=== PATIENT | male | born 1995 | race Caucasian/White ===

== ENCOUNTER 2020-03-09 14:20 | Emergency (ER) | payer MEDICARE, MEDICAID, SELFPAY ==
[2020-03-09] VITALS (57 sets, daily range): BP systolic 80–114; BP diastolic 42–81; PULSE 57–102; RESP 11–27; TEMP 36.6–36.7; O2SAT 95–100
--- NOTE | ~2020-03-09 | CT_ITS ---
EXAMINATION: CT BRAIN W/O DATE: 03/09/2020 15:09 INDICATION: Headache after head injury TECHNIQUE: Computed tomography (CT) of the head was performed without intravenous contrast. The dose- length product was 605.33 mGy-cm. The mA was adjusted according to patient size. Iterative reconstruc tion technique was employed. COMPARISON: CT dated 10/25/2019 FINDINGS: Normal brain parenchymal volume for age. Normal savage-white differentiation. No acute intrac ranial hemorrhage, infarction, mass or mass effect. No ventriculomegaly or midline shift. Midline sagittal images demonstrate a normal corpus callosum, c raniovertebral junction and sella turcica. Basilar cisterns are patent. Paranasal sinuses and mastoids are pneumatized. No depressed skull fractures. IMPRESSION: 1. No acute intracranial abnormality. Reviewed, dictated and finalized at location A.
--- NOTE | 2020-03-09 14:33 | PC.NURSE ---
PD removed bilat cuffs, pt calm and laying in stretcher.
--- NOTE | 2020-03-09 14:57 | PC.NURSE ---
Pt placed on bed alarm. Pt taken to CT scan via stretcher.
[2020-03-09 15:06] LABS: Basophils Absolute Auto 0.1 K/mm3 (0.0-0.1); Basophils Percent Auto 0.7 % (0.2-1.2); Eosinophils Percent Auto 0.5 % (0-4.4); Hematocrit 46.5 % (42.0-52.0); Hemoglobin 15.4 g/dL (14.0-18.0); Immature Granulocyte Absolute 0.03 K/mm3 (0.00-0.031); Immature Granulocyte Percent A 0.4 % (0-0.5); Lymphocytes Percent Auto 24.4 % (18.3-44.2); Mean Corpuscular HGB Conc 33.1 g/dl (32-36); Mean Corpuscular Hemoglobin 31.2 pg (26-34); Mean Corpuscular Volume 94.1 fl (80-100); Mean Platelet Volume 10.1 fl (7.4-10.4); Monocytes Absolute Auto 0.5 K/mm3 (0.1-0.6); Monocytes Percent Auto 5.9 % (2.6-8.5); Neutrophils Absolute Auto 5.6 K/mm3 (1.3-6.7); Neutrophils Percent Auto 68.1 % (45.5-73.1); Platelet Count Result 261 k/mm3 (150-375); Red Blood Count 4.94 M/mm3 (4.6-6.20); Red Cell Distribution Width 15.1 % (11.5-14.5); White Blood Count 8.2 K/mm3 (4.5-10.0)
[2020-03-09 15:09] LABS: Add Urine Microscopic? NO; Appearance Urine Clear (Clear); Bilirubin Urine Negative (Negative); Blood Urine Negative (Negative); Color Urine Straw (Yellow); Glucose Urine UA Negative (Negative); Ketones Urine Negative (Negative); Leukocyte Esterase Ur Negative LEU/UL (Negative); Nitrate Urine Negative (Negative); Protein Urine Negative (Negative); Specific Grav Ur 1.006 (1.001-1.035); Urobilinogen Urine Negative mg/dL (<2.0)
--- NOTE | 2020-03-09 15:10 | PC.NURSE ---
Per pt mother Araceli ([phone]) pt cannot return home. Per mother, pt has schizophrenia and alcoholism - needs to go to rehab facility.
[2020-03-09] MEDS: LACTATED RINGERS 1,000 ML 999 ML IV CONT ×2 (15:18→17:27)
[2020-03-09 15:20] LABS: Alanine Aminotransferase 17 U/L (4-50); Albumin Level 4.9 g/dL (3.5-5.1); Alkaline Phosphatase 109 U/L (38-126); Aspartate Amino Transferase 29 U/L (17-59); Bilirubin,Total 0.5 mg/dL (0.2-1.3); Blood Urea Nitrogen 12 mg/dL (9-20); Calcium 8.6 mg/dL (8.4-10.2); Carbon Dioxide 21 mmol/L (22-30); Chloride 108 mmol/L (98-107); Estimated CRCL calculation 101 ml/min; Estimated Glomerular Filt Rate > 60; Glucose 75 mg/dL (75-110); Potassium 3.8 mmol/L (3.4-5.0); Sodium 145 mmol/L (137-145)
[2020-03-09] MEDS: LORAZEPAM INJ 2 MG/ML VIAL 1 MG IV PUSH (15:21)
[2020-03-09 15:22] LABS: Amphetamine Screen Urine Negative (Negative); Barbiturate Screen Urine Negative (Negative); Benzodiazepines Screen Urine Negative (Negative); Cannabinoid Screen Urine Positive (Negative); Cocaine Screen Urine Negative (Negative); Methadone Screen Urine Negative (Negative); Opiate Screen Urine Negative (Negative); Phencyclidine Screen Urine Negative (Negative)
--- NOTE | 2020-03-09 15:46 | ED.ALCOHOL ---
HPI - Alcohol General Chief Complaint: Alcohol <GEOVANY Hall Last Filed: 03/09/20 15:49> Stated Complaint: ETOH <GEOVANY Hall Last Filed: 03/09/20 15:49> Time Seen by Provider: 03/09/20 19:31 <GEOVANY Hall Last Filed: 03/09/20 15:49> Source: patient <GEOVANY Hall Last Filed: 03/09/20 15:49> Mode of arrival: ambulatory <GEOVANY Hall Last Filed: 03/09/20 15:49> Limitations: no limitations <GEOVANY Hall Last Filed: 03/09/20 15:49> History of Present Illness HPI narrative: Patient is a 24-year-old male who presents per EMS was found in the [facility] yard intoxicated brought in in police custody was released on arrival patient on arrival is in the room intoxicated non-cooperative has a small abrasion over the nasal bridge lives at home with mother who kicked him out due to his chronic alcohol abuse patient also currently has schizophrenia potentially as well. Patient has history of medication noncompliance and alcohol abuse patient not cooperative on arrival is noted and in no distress <GEOVANY Hall Last Filed: 03/09/20 15:49> Related Data Home Medications: Home Medications Medication Instructions Recorded Confirmed Vivitrol 03/09/20 duloxetine 300 mg PO DAILY 03/09/20 <GEOVANY Hall Last Filed: 03/09/20 15:49> Allergies/Adverse Reactions: Allergies Allergy/AdvReac Type Severity Reaction Status Date / Time No Known Allergies Allergy Verified 03/09/20 15:04 <GEOVANY Hall Last Filed: 03/09/20 15:49> Review of Systems Review of Systems: ROS unobtainable: Yes unobtainable due to medical condition <GEOVANY Hall Last Filed: 03/09/20 15:49> PMFSH Past Medical History Medical History: Medical History (Updated 03/10/20 @ 01:34 by Linda Tang MD) Alcohol abuse Schizophrenia <GEOVANY Hall Last Filed: 03/09/20 15:49> Social History Social History: Social History (Updated 03/09/20 @ 15:48 by Marco Berg PA-C) Smoking status: Unknown if ever smoked Gender identity (if verbalized by the patient): Male <Marco Berg PA-C - Last Filed: 03/09/20 15:49> Exam Narrative: Exam Narrative: GENERAL: Well-appearing, well-nourished, and in no acute distress. HEAD: Normocephalic, small abrasion over the nose nasal bridge EYES: PERRLA and EOMI. ENT: Nares clear, no rhinorrhea or epistaxis. Mucous membranes moist. NECK: Supple. No adenopathy or masses. CHEST: Clear to auscultation. No respiratory distress. No wheezes rales or rhonchi HEART: Regular rate and rhythm. No murmur heard. Normal peripheral pulses. ABDOMEN: Soft, nontender, nondistended EXTREMITIES: Normal range of motion. No edema. SKIN: Warm, dry, no rash. NEURO: No focal deficits. Cranial nerves II through XII grossly intact PSYCH: Patient appears intoxicated unwilling to cooperate <Marco Berg PA-C - Last Filed: 03/09/20 15:49> Course GRAIN MERCHANDISING MANAGER/PA Physician Supervision For this patient encounter, I reviewed the GRAIN MERCHANDISING MANAGER or PA documentation, treatment plan, and medical decision making; and I had [id number] time with this patient. Assumed care of patient from physician assistant at surgery at 2000 shift end, awaiting reevaluation once patient is more sober. Patient has progressively become more behaviorally appropriate as he is sobering up. Patient with significant urine output likely due to extensive hydration as well as diuretic effects of alcohol. Continued hydration has been given. <Linda Tang MD - Last Filed: 03/10/20 06:38> Reevaluation(s) Reevaluation #1: Patient has been calm and cooperative. Patient now much more appropriate and sobering up. Patient ambulatory in the emergency department with steady gait. Patient appropriate for discharge. Patient will be calling a ride home. <Linda Tang MD - Last Filed:
[2020-03-09 15:51] LABS: Thyroid Stimulating Hormone 0.789 uIU/mL (0.465-4.680)
[2020-03-09 16:04] LABS: Ethanol 404 mg/dL (<10)
[2020-03-09] MEDS: SODIUM CHLORIDE 0.9% IV 1,000 ML 999 ML IV CONT ×2 (16:15→17:27)
--- NOTE | 2020-03-09 17:07 | PC.NURSE ---
Pt alert to verbal stimuli, pt A&Ox3 at this time.
[2020-03-09] MEDS: FAMOTIDINE 20 MG/2 ML VIAL IV PUSH (18:18)
[2020-03-09] MEDS: ONDANSETRON INJ 4 MG/2 ML VIAL IV PUSH ×2 (18:18→21:32)
--- NOTE | 2020-03-09 18:22 | PC.NURSE ---
Pt given ordered Zofran per EDP following episode of emesis found on floor.
--- NOTE | 2020-03-09 20:57 | PC.NURSE ---
Patient's mother, Araceli calls to get update on patient status. She states patient has been in and out of detox and was placed on medications. Patient's mother also states patient was recently taken off the medication for 4 days and arrived at her house intoxicated today and had him taken to the hospital. Patient's mother states the patient has been talking to the [place]ell[place], talking to people that aren't there and being out of character for his normal. Patient's mother states patient has been recently diagnosed with schizophrenia and ever since he was diagnosed he has been drinking more and he has been acting more and more not himself.
--- NOTE | 2020-03-09 21:38 | PC.NURSE ---
Patient awoke, speaking clearly, stated he was slightly nauseous and requested some water. Patient aware of his surroundings, and resting comfortably on the stretcher. This nurse informed EDP and 4mg Zofran was ordered IVP and patient was given water for PO challenge. Patient tolerated well. Patient offers no complaints at this time. Patient's BP soft at this time, EDP aware.
--- NOTE | 2020-03-10 00:25 | PC.NURSE ---
This nurse calls patient's mother stating the EDP is planning on letting the patient go home. No answer, this nurse left a message on her voicemail to call back.
[2020-03-10 02:23] VITALS: BP 83/50; PULSE 63; RESP 18; TEMP 36.6; O2SAT 98
[2020-03-10] MEDS: LACTATED RINGERS 1,000 ML 999 ML IV CONT (02:36)
--- NOTE | 2020-03-10 03:00 | PC.NURSE ---
This nurse attempted to contact patient's mother again, no answer. A message was left. fig caprifier notified.
[2020-03-10 04:37] VITALS: BP 92/48; PULSE 88; RESP 18; O2SAT 98
--- NOTE | 2020-03-10 05:48 | PC.NURSE ---
Attempted to call pts mother at this time. No answer.
[2020-03-10 06:32] VITALS: BP 102/55; PULSE 79; RESP 18; O2SAT 100
[2020-03-10 06:39] VITALS: BP 129/77; PULSE 79; RESP 18; O2SAT 100
== END 2020-03-10 06:40 | disposition home or self-care (01) ==
PROVIDERS: Emergency Medicine Emergency Medical Services; Emergency Provider Emergency Medicine
DX: F10.129 Alcohol abuse with intoxication, unspecified (principal); Y90.8 Blood alcohol level of 240 mg/100 ml or more; F20.9 Schizophrenia, unspecified; Z79.899 Other long term (current) drug therapy
CPT/HCPCS: 36415; 51701; 70450; 80053; 80307; 81003; 84443; 85025; 96361; 96374; 96375; 96376; 99284; J2060; J2405; J7030; J7120

== ENCOUNTER 2020-04-29 12:48 | Emergency (ER) | payer OTHER, MEDICARE, SELFPAY ==
[2020-04-29] VITALS (9 sets, daily range): BP systolic 122–155; BP diastolic 70–95; PULSE 66–89; RESP 16–21; TEMP 36.7–36.8; O2SAT 98–100
--- NOTE | 2020-04-29 12:53 | ECG_ITS ---
Measurements Intervals [place] Rate: 69 P: 75 RI: 134 QRS: 88 QRSD: 86 T: 73 QT: 416 QTc: 447 Interpretive Statements SINUS RHYTHM WITH SINUS ARRHYTHMIA MINIMAL Q WAVES- ANTEROLAT/INF LEADS ST ELEVATION IN ANT/INF LEADS- PROBABLY EARLY REPOLARIZATION BORDERLINE ECG Electronically Signed On 04-29-2020 17:09:14 CDT by Raul Gamboa D.O.
[2020-04-29 13:04] LABS: Basophils Absolute Auto 0.1 K/mm3 (0.0-0.1); Basophils Percent Auto 0.7 % (0.2-1.2); Eosinophils Percent Auto 0.1 % (0-4.4); Hematocrit 48.4 % (42.0-52.0); Hemoglobin 16.4 g/dL (14.0-18.0); Immature Granulocyte Absolute 0.02 K/mm3 (0.00-0.031); Immature Granulocyte Percent A 0.2 % (0-0.5); Lymphocytes Absolute Auto 1.43 K/mm3 (0.9-3.2); Lymphocytes Percent Auto 16.6 % (18.3-44.2); Mean Corpuscular HGB Conc 33.9 g/dl (32-36); Mean Corpuscular Hemoglobin 32.2 pg (26-34); Mean Corpuscular Volume 95.1 fl (80-100); Mean Platelet Volume 9.6 fl (7.4-10.4); Monocytes Absolute Auto 0.9 K/mm3 (0.1-0.6); Monocytes Percent Auto 10.4 % (2.6-8.5); Neutrophils Absolute Auto 6.2 K/mm3 (1.3-6.7); Platelet Count Result 200 k/mm3 (150-375); Red Blood Count 5.09 M/mm3 (4.6-6.20); Red Cell Distribution Width 15.2 % (11.5-14.5); White Blood Count 8.6 K/mm3 (4.5-10.0)
--- NOTE | 2020-04-29 13:11 | ED.GENADULT ---
HPI - General Adult General Chief complaint: Alcohol <GEOVANY Hall Last Filed: 04/29/20 17:06> Stated complaint: withdrawal <GEOVANY Hall Last Filed: 04/29/20 17:06> Time Seen by Provider: 04/29/20 12:52 <GEOVANY Hall Last Filed: 04/29/20 17:06> Source: patient <GEOVANY Hall Last Filed: 04/29/20 17:06> Mode of arrival: ambulatory <GEOVANY Hall Last Filed: 04/29/20 17:06> Limitations: no limitations <GEOVANY Hall Last Filed: 04/29/20 17:06> History of Present Illness HPI narrative: Patient is a 25-year-old male who presents to emergency department for evaluation of anxiety trembling that began today last drank alcohol last night with history of chronic alcohol abuse was followed by specialists and was getting Vivitrol injections but is no longer due to having continued drinking patient's mother who is also present notes that he has longstanding history of psych disorder and last night made comments of wanting to kill himself patient is currently not taking any medications notes only abusing alcohol denies any illicit drug use patient notes he has had some nausea and vomiting and anxiety patient denies injury trauma or recent illness <GEOVANY Hall Last Filed: 04/29/20 17:06> Related Data Home medications: Home Medications Medication Instructions Recorded Confirmed Vivitrol 380 mg IM MONTHLY 10/25/19 10/26/19 duloxetine [Cymbalta] 30 mg PO DAILY 10/25/19 10/26/19 naltrexone 50 mg PO DAILY 10/27/19 10/27/19 <GEOVANY Hall Last Filed: 04/29/20 17:06> Allergies/adverse reactions: Allergies Allergy/AdvReac Type Severity Reaction Status Date / Time No Known Allergies Allergy Verified 04/29/20 12:55 <GEOVANY Hall Last Filed: 04/29/20 17:06> Review of Systems Review of Systems: All systems reviewed & are unremarkable except as noted in HPI and below <GEOVANY Hall Last Filed: 04/29/20 17:06> PMFSH Past Medical History Medical History: Medical History ADHD Alcohol abuse Anxiety Asperger's disorder Blindness of left eye Depression <Marco Berg PA-C - Last Filed: 04/29/20 17:06> Social History Social History: Social History Smoking packs per day: 1 Smoking cigarettes per day: 20.0 Years smoked: 3 Smoking pack-years: 3.00 Smoking status: Current every day smoker Tobacco type: cigarettes Alcohol intake: current Drinks per week: 1 Substance use: current Substance use type: marijuana Gender identity (if verbalized by the patient): Male Spiritual care concerns: No Agree to blood products: Yes <Marco Berg PA-C - Last Filed: 04/29/20 17:06> Exam Narrative: Exam Narrative: GENERAL: Well-appearing, well-nourished, and in no acute distress. HEAD: Normocephalic, atraumatic. EYES: PERRLA and EOMI. ENT: Nares clear, no rhinorrhea or epistaxis. Mucous membranes moist. Oropharynx without tonsillar hypertrophy exudate or other lesions.-CBC with his head looks like he does not have a bleed NECK: Supple. No adenopathy or masses CHEST: Clear to auscultation. No respiratory distress. No wheezes rales or rhonchi HEART: Regular rate and rhythm. No murmur heard. Normal peripheral pulses. ABDOMEN: Soft, nontender, nondistended EXTREMITIES: Normal range of motion. No edema. SKIN: Warm, dry, no rash. NEURO: No focal deficits. Alert and oriented x3. Cranial nerves II through XII grossly intact. Normal speech. PSYCH: Acutely anxious flat His heart rightaffect <Marco Berg PA-C - Last Filed: 04/29/20 17:06> Course Course Emergency Course: Patient in the room in no distress resting comfortably afebrile nontoxic-appearing <Marco Berg PA-C - Last Filed: 04/29/20 17:06> Vital Signs
[2020-04-29 13:16] LABS: Alanine Aminotransferase 21 U/L (4-50); Albumin Level 5.2 g/dL (3.5-5.1); Alkaline Phosphatase 140 U/L (38-126); Aspartate Amino Transferase 43 U/L (17-59); Blood Urea Nitrogen 13 mg/dL (9-20); Calcium 9.5 mg/dL (8.4-10.2); Carbon Dioxide 28 mmol/L (22-30); Chloride 95 mmol/L (98-107); Estimated CRCL calculation 126 ml/min; Estimated Glomerular Filt Rate > 60; Glucose 99 mg/dL (75-110); Magnesium 1.5 mg/dL (1.6-2.3); Phosphorus 3.2 mg/dL (2.5-4.5); Potassium 3.8 mmol/L (3.4-5.0); Sodium 134 mmol/L (137-145)
[2020-04-29 13:19] LABS: Prothrombin Time 12.9 Seconds (11.1-14.7)
[2020-04-29 13:22] LABS: Ethanol < 10 mg/dL (<10)
[2020-04-29] MEDS: MAGNESIUM SULF 2 GM/WATER 50ML 2 GM/50 ML BAG IVPB (13:46)
[2020-04-29 14:14] LABS: Add Urine Microscopic? YES; Appearance Urine Clear (Clear); Bilirubin Urine Negative (Negative); Blood Urine Negative (Negative); Color Urine Yellow (Yellow); Glucose Urine UA Negative (Negative); Ketones Urine 1+ mg/dL (Negative); Leukocyte Esterase Ur Trace LEU/UL (Negative); Nitrate Urine Negative (Negative); Protein Urine Negative (Negative); RBC Urine 0-2 /hpf (0-2); Specific Grav Ur 1.012 (1.001-1.035); Urobilinogen Urine Negative mg/dL (<2.0)
[2020-04-29 14:30] LABS: Amphetamine Screen Urine Negative (Negative); Barbiturate Screen Urine Negative (Negative); Benzodiazepines Screen Urine Negative (Negative); Cannabinoid Screen Urine Negative (Negative); Cocaine Screen Urine Negative (Negative); Methadone Screen Urine Negative (Negative); Opiate Screen Urine Negative (Negative); Phencyclidine Screen Urine Negative (Negative)
[2020-04-29 17:29] LABS: Amphetamine Screen Urine Negative (Negative); Barbiturate Screen Urine Negative (Negative); Benzodiazepines Screen Urine Negative (Negative); Cannabinoid Screen Urine Negative (Negative); Cocaine Screen Urine Negative (Negative); Methadone Screen Urine Negative (Negative); Opiate Screen Urine Negative (Negative); Phencyclidine Screen Urine Negative (Negative)
== END 2020-04-29 19:51 | disposition home or self-care (01) ==
PROVIDERS: Emergency Medicine Emergency Medical Services; Emergency Provider Emergency Medicine
DX: F10.10 Alcohol abuse, uncomplicated (principal); F41.9 Anxiety disorder, unspecified; F90.9 Attention-deficit hyperactivity disorder, unspecified type; F84.5 Asperger's syndrome; F32.9 Major depressive disorder, single episode, unspecified; F17.210 Nicotine dependence, cigarettes, uncomplicated
CPT/HCPCS: 36415; 80053; 80307; 81001; 83735; 84100; 84443; 85025; 85610; 85730; 93005; 96365; 96366; 96368; 96375; 99284; J2060; J3411; J3475; J7121

== ENCOUNTER 2020-08-12 12:57 | Observation (INO) | payer MEDICARE, MEDICAID, SELFPAY ==
[2020-08-12] VITALS (8 sets, daily range): BP systolic 116–140; BP diastolic 83–94; PULSE 57–92; RESP 16–22; TEMP 36.1–36.7; O2SAT 98–100; BMI 20.9
--- NOTE | ~2020-08-12 | XR_ITS ---
XR chest 1V portable DATE: 08/12/2020 15:19 INDICATION: Shaking, possible seizure TECHNIQUE: Portable AP chest on 08/12/2020 at 1520 hours COMPARISON: 10/25/2019 PA and lateral chest FINDINGS: No pulmonary infiltrate or consolidation, pleural effusion or pulmonary vascular congestion or pneumothorax. No hilar or mediastinal enlargement. IMPRESSION: No active pulmonary disease Reviewed, dictated and finalized at location A. IMPRESSION: No active pulmonary disease
--- NOTE | 2020-08-12 13:24 | ECG_ITS ---
Measurements Intervals [place] Rate: 69 P: 83 [place]: 138 QRS: 94 QRSD: 96 T: 79 QT: 378 QTc: 406 Interpretive Statements SINUS RHYTHM RIGHT AXIS DEVIATION POSSIBLE RIGHT ATRIAL ENLARGEMENT POSSIBLE LEFT ATRIAL ENLARGEMENT ST ELEVATION IN ANTEROLAT/INF LEADS- PROBABLY EARLY REPOLARIZATION BASELINE ARTIFACT- I, II, III, AVR, AVL, AVF, V1-V3 BORDERLINE ECG Electronically Signed On 08-12-2020 16:01:00 CDT by Raul Gamboa D.O.
--- NOTE | 2020-08-12 13:34 | PC.NURSE ---
PT STATES HX SEIZURES WITH ALCOHOL WITHDRAWAL, SEIZURE PADS IN PLACE
--- NOTE | 2020-08-12 13:57 | ED.GENADULT ---
HPI - General Adult General Chief complaint: Unspecified Stated complaint: Shaking All Over Body Time Seen by Provider: 08/12/20 13:16 Source: patient History of Present Illness HPI narrative: Patient is a 25 y/o male complaining of abdominal spasm since yesterday. He states that his spasm moves from side to side. There is no known alleviating or exacerbating factor. He states that the spasm was 10/10 yesterday, but it's 5/10 today. He admits drinks heavily, usually 15 small [place] Light a day. His last drink was 2 days ago. He also feels shaky and sweating. He reports having a seizure last night. He has some nausea and diarrhea, but no vomiting. He also reports some chest pain and shortness of breath. Related Data Home Medications Medication Instructions Recorded Confirmed No Home Medications 08/12/20 08/12/20 Allergies Allergy/AdvReac Type Severity Reaction Status Date / Time No Known Allergies Allergy Verified 08/12/20 13:27 Review of Systems Constitutional: Constitutional: Denies chills, Denies fever(s), Denies headache(s) and Denies weakness Eyes: Eyes: Denies blurry vision ENT: Denies headache(s) and Denies neck pain Cardiovascular: Cardiovascular: Reports chest pain and Reports dyspnea Respiratory: Respiratory: Denies cough and Reports dyspnea Gastrointestinal: Gastrointestinal: Reports abdominal pain, Reports diarrhea, Reports nausea and Denies vomiting Genitourinary: Genitourinary: Denies hematuria and Denies dysuria Musculoskeletal: Musculoskeletal: Denies back pain and Denies neck pain Neurologic: Denies headache(s), Reports seizure-like activity and Denies weakness [facility] Past Medical History Medical History (Updated 08/12/20 @ 17:31 by Leyla Jean-Baptiste MD) ADHD Alcohol abuse Anxiety Asperger's disorder Blindness of left eye Depression Family History Family History (Updated 08/12/20 @ 17:07 by Mini Faria RN) Father Alcoholism Social History Social History Smoking packs per day: 1 Smoking cigarettes per day: 20.0 Years smoked: 3 Smoking pack-years: 3.00 Smoking status: Current every day smoker Tobacco type: cigarettes Additional smoking assessment comments: trying to quit Alcohol intake: current Drinks per week: 105 Substance use: former Substance use type: marijuana Other substance usage details: CBD/THC Last use: 08/06/20 Gender identity (if verbalized by the patient): Male Spiritual care concerns: No Agree to blood products: Yes Exam Const: General: no acute distress and well developed Orientation/consciousness: oriented to person, oriented to place, oriented to time and patient oriented x3 HENMT: Head: normocephalic Ears: external ears normal General nose exam: Normal external nose present Eyes: General: appearance normal, both eyes and all related structures Conjunctivae: conjunctivae normal Neck: Neck: normal visual inspection and full ROM Chest: Chest palpation & inspection: normal inspection of the chest and no tenderness Resp: Effort & Inspection: normal respiratory effort Auscultation: clear to auscultation bilaterally Cardio: Rate: regular rate Rhythm: regular rhythm GI: GI Palp: No abdominal tenderness and Yes Soft to palpation Skin: General skin exam: normal color and turgor normal Neuro: General: oriented to person, oriented to place, oriented to time and patient oriented x3 Cognition (Neuro): normal cognition Motor exam (neuro): Tremors during motor activity present Extrem: General: normal to inspection, full ROM and no pedal edema Psych: Appearance: grossly normal Mental Status: mental status grossly normal Affect: Anxious affect present Course Consultations Consultation #1: Discussed with Lois, who agrees to admit. Date: 08/12/20 Time: 15:07 Vital Signs Vital signs: Vital Signs Temperature 36.1 C L 08/12/20 13:06 Pulse Rate 92 08/12
[2020-08-12 14:11] LABS: Basophils Percent Auto 0.3 % (0.2-1.2); Eosinophils Absolute Auto 0.1 K/mm3 (0-0.3); Eosinophils Percent Auto 0.7 % (0-4.4); Hematocrit 44.3 % (42.0-52.0); Hemoglobin 15.2 g/dL (14.0-18.0); Immature Granulocyte Absolute 0.03 K/mm3 (0.00-0.031); Immature Granulocyte Percent A 0.2 % (0-0.5); Immature Platelet Fraction Pct 4.8 % (0.9-11.2); Lymphocytes Absolute Auto 1.11 K/mm3 (0.9-3.2); Lymphocytes Percent Auto 8.6 % (18.3-44.2); Mean Corpuscular HGB Conc 34.3 g/dl (32-36); Mean Corpuscular Hemoglobin 32.9 pg (26-34); Mean Corpuscular Volume 95.9 fl (80-100); Mean Platelet Volume 10.4 fl (7.4-10.4); Monocytes Percent Auto 7.6 % (2.6-8.5); Neutrophils Absolute Auto 10.7 K/mm3 (1.3-6.7); Neutrophils Percent Auto 82.6 % (45.5-73.1); Platelet Count Result 150 k/mm3 (150-375); Red Blood Count 4.62 M/mm3 (4.6-6.20); Red Cell Distribution Width 13.9 % (11.5-14.5); White Blood Count 12.9 K/mm3 (4.5-10.0)
[2020-08-12 14:15] LABS: Add Urine Microscopic? NO; Appearance Urine Clear (Clear); Bilirubin Urine Negative (Negative); Blood Urine Negative (Negative); Color Urine Colorless (Yellow); Glucose Urine UA Negative (Negative); Ketones Urine Negative (Negative); Leukocyte Esterase Ur Negative LEU/UL (Negative); Mucus Urine Rare /lpf; Nitrate Urine Negative (Negative); Protein Urine Negative (Negative); Squamous Epithelial Cell Urine Rare /hpf (Few); Urobilinogen Urine Negative mg/dL (<2.0); WBC Urine 0-3 /hpf
[2020-08-12] MEDS: chlordiazePOXIDE (*CRX) 25 MG CAPSULE PO (14:15)
[2020-08-12] MEDS: LORazepam INJ (*CRX) 2 MG/ML VIAL 1 MG IV PUSH (14:15)
[2020-08-12] MEDS: SODIUM CHLORIDE 0.9% IV 1,000 ML 999 ML IV CONT (14:16)
[2020-08-12 14:18] LABS: Specific Grav Ur 1.002 (1.001-1.035)
[2020-08-12 14:25] LABS: Ethanol < 10 mg/dL (<10)
[2020-08-12 14:30] LABS: Alanine Aminotransferase 211 U/L (4-50); Albumin Level 4.9 g/dL (3.5-5.1); Alkaline Phosphatase 118 U/L (38-126); Anion Gap 11 mmol/L (8-16); Aspartate Amino Transferase 320 U/L (17-59); Bilirubin,Total 0.7 mg/dL (0.2-1.3); Blood Urea Nitrogen 10 mg/dL (9-20); Calcium 9.5 mg/dL (8.4-10.2); Carbon Dioxide 27 mmol/L (22-30); Chloride 99 mmol/L (98-107); Estimated CRCL calculation 109 ml/min; Estimated Glomerular Filt Rate > 60; Glucose 95 mg/dL (75-110); Lipase 72 U/L (23-300); Potassium 4.2 mmol/L (3.4-5.0); Sodium 137 mmol/L (137-145)
[2020-08-12 14:46] LABS: Amphetamine Screen Urine Negative (Negative); Barbiturate Screen Urine Negative (Negative); Benzodiazepines Screen Urine Negative (Negative); Cannabinoid Screen Urine Negative (Negative); Cocaine Screen Urine Negative (Negative); Methadone Screen Urine Negative (Negative); Opiate Screen Urine Negative (Negative); Phencyclidine Screen Urine Negative (Negative)
[2020-08-12 15:58] LABS: Troponin I < 0.012 ng/mL (0.000-0.034)
--- NOTE | 2020-08-12 16:25 | ADMGEN ---
This patient, Talat Villagomez II, was admitted to Medical Room 249-01. Patient/family oriented to hospital policies and general routines including ID bracelet, bed and alarms, visiting hours, pain management, procedures, bathroom and other care routines, personal items, smoking policy, room service/diet, and visiting hours. Valuables list has been completed. Information on how to activate the Rapid Response Team has been discussed. Patient/Family are encouraged to report perceived risks to care and to ask questions if they do not understand what they are told or what they should do.
[2020-08-12] MEDS: LORazepam INJ (*CRX) 2 MG/ML VIAL 0.5 MG IV PUSH (19:50)
--- NOTE | 2020-08-12 19:53 | PM.IMHP ---
H&P: HPI History of Present Illness Date/Time: 08/12/20 19:53 Chief complaint: alcohol withdrawl, seizure Narrative: Talat Villagomez II is a 25 year old male Who has had a history of having alcohol abuse. The patient was here October of last year for alcohol withdrawal and he has been in the emergency room in the past for possible suicidal ideation. He was evaluated by crisis and sent home from the ER at 1 point. The patient was also getting Vivitrol injections to help him stop drinking but the patient stated he quit doing that because of the side effects. The patient has longstanding depression and anxiety. The patient stated he has no desire to go to any rehab in that he plans on doing an on his own. He told me he used to drink whiskey but now just drinks beer he thought it would be better and would drink as much if he does drink beer instead with the however he tends to drink anywhere from 12-16 regular beers a day. The patient has not drink in about 2 days and felt really ill. He felt like he could go through these withdrawals on his home but he started to have hand tremors of the stomach tremors and thought that maybe had a seizure last night. So he thought that it was time to come the emergency room. He said he probably should the came in last night. He has no nausea vomiting or diarrhea. He has no visual or auditory hallucinations. Though he is diaphoretic and anxious. Patient was given a dose of Librium in the emergency room. He was also given Ativan a and IV fluids in the emergency room. His white count is noted to be 12.9. All other labs were unremarkable. Date of service 08/12/2020 Review of Systems Review of Systems: All systems reviewed & are unremarkable except as noted in HPI and below Constitutional: Constitutional: Reports as per HPI and Reports no additional constitutional complaints Eyes: Eyes: Reports as per HPI and Reports no additional eye complaints ENT: Reports system reviewed and no additional complaints, except as documented and Reports Normal hearing present Cardiovascular: Cardiovascular: Reports no additional cardiovascular complaints Respiratory: Respiratory: Reports no additional respiratory complaints and Reports no additional respiratory complaints Gastrointestinal: Gastrointestinal: Reports as per HPI and Reports no additional gastrointestinal complaints Musculoskeletal: Musculoskeletal: Reports no additional musculoskeletal complaints Integumentary/Breasts: Skin/Breast: Reports system reviewed and no additional complaints, except as docu and Reports as per HPI Neurologic: Reports system reviewed and no additional complaints, except as documented, Reports as per HPI and Reports Normal hearing present Psychiatric: Psychiatric: Reports no additional psychiatric complaints and Reports as per HPI Endocrine: Endocrine: Reports no additional endocrine complaints Hematologic/Lymphatic: Hematologic/Lymphatic: Reports no additional hematologic/lymphatic complaints Allergic/Immunologic: Allergic/Immunologic: Reports no additional allergic/immunologic complaints PMFSH Past Medical History Medical History (Updated 08/12/20 @ 19:58 by Lois House NP) ADHD Alcohol abuse Anxiety Asperger's disorder 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 Depression Surgical History Surgical History (Updated 08/12/20 @ 19:58 by Lois House NP) H/O cataract extraction left eye . Patient stated he had a cataract from being premature. Family History Family History Father Alcoholism Social History Social History (Updated 08/12/20 @ 20:00 by Lois House NP) Social History: The patient lives with his grandmother. The patient does not have a durable power corporate associate attorney for healthcare. The patient is full code. Patient works for a [employer]. The patient states that he drinks anywhere from 12-16 beers a d
[2020-08-12] MEDS: MELATONIN 3 MG TABLET PO (21:05)
[2020-08-13] MEDS: chlordiazePOXIDE (*CRX) 25 MG CAPSULE PO ×3 (00:01→12:27)
[2020-08-13 00:07] VITALS: PULSE 66
[2020-08-13 02:00] VITALS: BP 112/72; PULSE 52; RESP 16; TEMP 36.7; O2SAT 100
[2020-08-13 04:32] VITALS: PULSE 80
[2020-08-13 05:47] LABS: Basophils Percent Auto 0.6 % (0.2-1.2); Eosinophils Absolute Auto 0.2 K/mm3 (0-0.3); Eosinophils Percent Auto 2.3 % (0-4.4); Immature Granulocyte Absolute 0.03 K/mm3 (0.00-0.031); Immature Granulocyte Percent A 0.4 % (0-0.5); Immature Platelet Fraction Pct 5.1 % (0.9-11.2); Lymphocytes Absolute Auto 1.09 K/mm3 (0.9-3.2); Lymphocytes Percent Auto 15.3 % (18.3-44.2); Mean Corpuscular HGB Conc 34.1 g/dl (32-36); Mean Corpuscular Hemoglobin 33.6 pg (26-34); Mean Corpuscular Volume 98.4 fl (80-100); Mean Platelet Volume 11.3 fl (7.4-10.4); Monocytes Absolute Auto 0.7 K/mm3 (0.1-0.6); Monocytes Percent Auto 10.3 % (2.6-8.5); Neutrophils Absolute Auto 5.1 K/mm3 (1.3-6.7); Neutrophils Percent Auto 71.1 % (45.5-73.1); Platelet Count Result 137 k/mm3 (150-375); Red Blood Count 4.47 M/mm3 (4.6-6.20); Red Cell Distribution Width 14.1 % (11.5-14.5); White Blood Count 7.1 K/mm3 (4.5-10.0)
[2020-08-13 05:55] LABS: Anion Gap 6 mmol/L (8-16); Blood Urea Nitrogen 10 mg/dL (9-20); Calcium 9.2 mg/dL (8.4-10.2); Carbon Dioxide 30 mmol/L (22-30); Chloride 102 mmol/L (98-107); Estimated CRCL calculation 99 ml/min; Estimated Glomerular Filt Rate > 60; Glucose 89 mg/dL (75-110); Lactate Dehydrogenase 1405 U/L (313-618); Lipase 63 U/L (23-300); Magnesium 2.1 mg/dL (1.6-2.3); Potassium 3.8 mmol/L (3.4-5.0); Sodium 138 mmol/L (137-145)
[2020-08-13 06:00] VITALS: BP 117/90; PULSE 68; RESP 16; TEMP 36.6; O2SAT 100
[2020-08-13 08:00] VITALS: PULSE 107
[2020-08-13] MEDS: FOLIC ACID 1 MG TABLET PO (09:23)
[2020-08-13] MEDS: NICOTINE (*PBKC) 21 MG PATCH 1 PATCH TRANSDERM (09:23)
[2020-08-13] MEDS: THIAMINE HCL 100 MG TABLET PO (09:23)
[2020-08-13 12:00] VITALS: PULSE 80
--- NOTE | 2020-08-13 14:20 | PM.DS ---
DS: Admitting Diagnosis Admitting Diagnosis Admitting Diagnosis: alcohol withdrawl, seizure DS: Discharge Diagnosis Discharge Diagnosis (1) Alcohol withdrawal: Qualifiers: Complication of substance-induced condition: with unspecified complication Qualified Code(s): F10.239 - Alcohol dependence with withdrawal, unspecified Code(s): F10.239 - Alcohol dependence with withdrawal, unspecified Status: Acute Assessment and Plan: Date of Admission 08/12/20 Date of Discharge/DOS 08/13/20 Talat Villagomez is a 25yo M with history of depression, anxiety, tobacco and alcohol use disorder who presented to the ED for evaluation of tremor, shaking all over body . He reports drinking around 15 beers per day. His last drink was 2 days prior to arrival. He thinks he may have had a seizure the evening prior to arrival but is unsure. Per the EMR he may also have a diagnosis of schizophrenia. Patient had been on vivitrol injections previously which unfortunately were discontinued due to his continued drinking, per the EMR. Patient was observed overnight with CIWA monitoring and scheduled Librium. His symptoms were improved the following day and he was hemodynamically stable for discharge with resources on counseling for anxiety/depression/schizophrenia and alcohol use disorder. He declines inpatient rehabilitation at this time. He is strongly encouraged to follow up with his PCP and psychiatrist as soon as possible. He lives at home with his grandmother and tells me there is no alcohol in his home at this time. (2) Anxiety: Code(s): F41.9 - Anxiety disorder, unspecified Status: Acute (3) Depression: Qualifiers: Depression Type: other depression Qualified Code(s): F32.89 - Other specified depressive episodes Code(s): F32.9 - Major depressive disorder, single episode, unspecified Status: Chronic (4) Tobacco dependence: Code(s): F17.200 - Nicotine dependence, unspecified, uncomplicated Status: Chronic Assessment and Plan: Detailed discussions encouraging alcohol and tobacco cessation were held with patient. DS: Summary Time Spent with Patient Time attestation: Total time spent providing and/or coordinating discharge services: 40 minutes Exam Narrative: Exam Narrative: General: Male resting supine in bed in no acute distress, anxious. HEENT: Normocephalic, EOMI, oral mucosa moist. Cardiovascular: Rate and rhythm are regular. Respiratory: Lungs clear to auscultation all lyle. Non-labored breathing. Abdomen: Soft, non-tender, non-distended, bowel sounds present. Extremities: Peripheral pulses intact. No edema. Neuro: No focal neurological deficits. Speech is clear. DS: Data Data Completed and Pending Labs on day of discharge: Last Vital Signs Temp 97.9 F 08/13/20 06:00 Pulse 80 08/13/20 12:00 Resp 16 08/13/20 06:00 BP 117/90 08/13/20 06:00 Pulse Ox 100 08/13/20 06:00 ITS Impressions Chest X-Ray 08/12/20 15:22 IMPRESSION: No active pulmonary disease Laboratory Tests 08/13/20 04:56 08/13/20 04:56 Discharge Plan Discharge Attending physician on discharge: Johnson Murray Consulting providers: Aileen Buck ; Lois House ; Raul Gamboa ; Diego Duckworth ; Qiana Noel Discharging Clinician: Qiana Noel Anticipated Discharge Date/Time: 08/13/20 13:49 Patient Disposition: Home, Self-Care Activity: as tolerated Diet: as tolerated Discharge Instructions: Follow up with your primary care provider and your psychiatrist, Dr Augustin, as soon as possible. Call Dr. Ann Marie Augustin's office to make an appointment for this week. Dr Augustin's office phone number is . It is very important for you to stop drinking. The Librium prescription is a benzodiazepine to help treat alcohol withdrawal symptoms. Take the librium as prescribed but
== END 2020-08-13 15:15 | disposition home or self-care (01) ==
LOC: ANHED 15:21 → ANH2MED 15:59
PROVIDERS: Nurse Practitioner; Admitting Provider Family Medicine; Emergency Provider Emergency Medicine; Visit Provider Family Medicine
DX: F10.239 Alcohol dependence with withdrawal, unspecified (principal); R07.9 Chest pain, unspecified; F90.9 Attention-deficit hyperactivity disorder, unspecified type; F84.5 Asperger's syndrome; F41.8 Other specified anxiety disorders; F17.210 Nicotine dependence, cigarettes, uncomplicated; F12.90 Cannabis use, unspecified, uncomplicated
CPT/HCPCS: 36415; 71045; 80048; 80053; 80307; 81003; 83615; 83690; 83735; 84443; 84484; 85025; 85055; 93005; 96361; 96374; 96376; 99285; A9270; G0378; J2060; J7030

== ENCOUNTER 2020-09-09 23:07 | Inpatient (IN) | payer MEDICARE, MEDICAID, SELFPAY ==
--- NOTE | ~2020-09-09 | XR_ITS ---
EXAMINATION: XR chest 1V DATE: 09/10/2020 00:42 INDICATION: Aspiration TECHNIQUE: frontal view of the chest was obtained. COMPARISON: Chest radiograph dated 08/12/2020 FINDINGS: Suboptimal inspiration with decreased lung volumes. No focal airspace opacities, pulmonary edema, ple ural effusion or pneumothorax. The cardiomediastinal silhouette is normal. Visualized bones and soft tissues are unremarkable. IMPRESSION: 1. No acute cardiopulmonary disease. Reviewed, dictated and finalized at location A. ASSEMBLER
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
[2020-09-09 23:08] VITALS: BP 116/85; PULSE 76; RESP 20; TEMP 36; O2SAT 97
[2020-09-09 23:18] VITALS: PULSE 80; RESP 19; O2SAT 97
[2020-09-09 23:30] VITALS: PULSE 81; RESP 20; O2SAT 96
[2020-09-09 23:31] VITALS: BP 101/69; PULSE 81; RESP 21; O2SAT 97
--- NOTE | 2020-09-09 23:36 | ED.FALL ---
HPI - Fall General Chief Complaint: Fall Stated Complaint: fall/ head lac Time Seen by Provider: 09/09/20 23:36 Source: patient and EMS Mode of arrival: EMS Limitations: clinical condition History of Present Illness HPI Narrative: Patient is a 25-year-old male who presents for evaluation of altered mental status in the setting of alcohol intoxication. History is obtained via EMS report. EMS called to patient's residence as he was found outside lying on the driveway. Patient noted to have heavy alcohol on board this evening per family as well as possible benzodiazepines or crack cocaine. Patient somnolent, arousable to painful stimuli. Pt with history of alcoholism, schizophrenia, asberger's syndrome. Per family report, he has had multiple admissions to rehabilitation facilities. Per mother, she found text messages on his phone to a friend stating that he was going to end his life tonight. 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 Depression Surgical History Surgical History H/O cataract extraction left eye . Patient stated he had a cataract from being premature. Family History Family History Father Alcoholism Social History Social History Social History: The patient lives with his grandmother. The patient does not have a durable power staff attorney for healthcare. The patient is full code. Patient works for a [employer]. The patient states that he drinks anywhere from 12-16 beers a day. He does occasionally use marijuana. He is single does not have any children. He smokes 1-2 packs of cigarettes a day. Smoking packs per day: 1 Smoking cigarettes per day: 20.0 Years smoked: 3 Smoking pack-years: 3.00 Smoking status: Current every day smoker Tobacco type: cigarettes Additional smoking assessment comments: trying to quit Alcohol intake: current Drinks per week: 105 Substance use: former Substance use type: marijuana Other substance usage details: CBD/THC Last use: 08/06/20 Gender identity (if verbalized by the patient): Male Spiritual care concerns: No Agree to blood products: Yes Exam Narrative: Exam Narrative: Nursing note and vitals reviewed. CONSTITUTIONAL: The patient appears somnolent, intoxicated HEAD: Normocephalic, 1 cm laceration to right eyebrow, nasal bridge laceration approximately 0.25 cm EYES: EARS: External ears clear bilaterally, no hemotympanum MOUTH: OP clear, no erythema, exudates NECK: midline trachea, supple, FROM. No cervical spinal tenderness. CARDIOVASCULAR: Normal rate, regular rhythm, normal heart sounds and intact distal pulses. No murmurs, rubs, gallops. PULMONARY: Effort normal and breath sounds normal. No respiratory distress. The patient has no wheezes, rales, ronchi. No chest wall tenderness, crepitus or ecchymoses. ABDOMINAL: Soft. Nontender, nondistended. No palpable masses EXTREMITIES: Pt will move all extremities symmetrically. -RUE: No deformity. Normal ROM at shoulder, elbow, wrist, and hand. Sensation intact M/U/R. Pulse 2+. -LUE: No deformity. Normal ROM at shoulder, elbow, wrist, and hand., Sensation intact M/U/R. Pulse 2+ -RLE: No deformity. Normal ROM at hip, knee, ankle. Sensation intact distally. -LLE: No deformity. Normal ROM at hip, knee, ankle. Sensation intact distal
--- NOTE | 2020-09-09 23:42 | PC.NURSE ---
charge spoke with pt mother. per mom pt phone had text evidence of attempting to get ahold of xanax and cocaine. Pt has history of schizephrenia and etoh abuse, and Asperger.
[2020-09-10] VITALS (21 sets, daily range): BP systolic 95–136; BP diastolic 48–93; PULSE 66–90; RESP 15–24; TEMP 36.7–36.9; O2SAT 96–100; BMI 19.6
--- NOTE | 2020-09-10 00:09 | ECG_ITS ---
Measurements Intervals [place] Rate: 82 P: 64 NC: 133 QRS: 81 QRSD: 95 T: 54 QT: 382 QTc: 447 Interpretive Statements SINUS RHYTHM POSSIBLE LEFT ATRIAL ENLARGEMENT ST ELEVATION IN DIFFUSE LEADS- PROBABLY EARLY REPOLARIZATION BASELINE ARTIFACT- V4, V6 BORDERLINE ECG Electronically Signed On 09-10-2020 8:46:20 CASH SURRENDER CALCULATOR by Raul Gamboa D.O.
[2020-09-10 00:10] LABS: Glucose Point of Care 98 (65-105)
[2020-09-10] MEDS: ONDANSETRON INJ 4 MG/2 ML VIAL IV PUSH (00:14)
[2020-09-10] MEDS: TETANUS,DIPHTHERIA,AC PERTUSSIS ADULT (0.5 ML) BOOSTRIX IM (00:14)
[2020-09-10] MEDS: SODIUM CHLORIDE 0.9% IV 1,000 ML 999 ML IV CONT (00:15)
[2020-09-10 00:20] LABS: Alveolar/Arterial O2 Gradient 20.9 mmHg; Carboxyhemoglobin 6.1 % THb (0-2.0); Fractional Inspired Oxygen 24 %; HCO3 ABG 21.4 mEq/l (22.0-26.0); Methemoglobin ABG 0.3 %THb (0-1.5); Oxygen Content ABG 19.7 %vol (16.0-22.0); Oxygen Saturation ABG 96.8 % (95.0-100.0); PCO2 ABG 44.4 mmHg (35.0-45.0); PO2 ABG 97.4 mmHg (80.0-100.0); PO2 FiO2 Ratio Arterial Blood 4.06 %; Reduced Hemoglobin 3.6 %THb (0-5.0); Total Hemoglobin 15.5 g/dL (12.0-18.0); pH ABG 7.301 (7.350-7.450)
[2020-09-10 00:24] LABS: Site Drawn RIGHT BRACHIAL
[2020-09-10 00:59] LABS: Basophils Percent Auto 0.4 % (0.2-1.2); Eosinophils Absolute Auto 0.2 K/mm3 (0-0.3); Eosinophils Percent Auto 1.7 % (0-4.4); Hematocrit 41.8 % (42.0-52.0); Immature Granulocyte Absolute 0.06 K/mm3 (0.00-0.031); Immature Granulocyte Percent A 0.5 % (0-0.5); Lymphocytes Absolute Auto 2.88 K/mm3 (0.9-3.2); Lymphocytes Percent Auto 25.9 % (18.3-44.2); Mean Corpuscular HGB Conc 33.5 g/dl (32-36); Mean Corpuscular Hemoglobin 32.6 pg (26-34); Mean Corpuscular Volume 97.2 fl (80-100); Mean Platelet Volume 10.1 fl (7.4-10.4); Monocytes Absolute Auto 0.9 K/mm3 (0.1-0.6); Monocytes Percent Auto 8.1 % (2.6-8.5); Neutrophils Absolute Auto 7.1 K/mm3 (1.3-6.7); Neutrophils Percent Auto 63.4 % (45.5-73.1); Platelet Count Result 188 k/mm3 (150-375); Red Cell Distribution Width 13.6 % (11.5-14.5); White Blood Count 11.1 K/mm3 (4.5-10.0)
[2020-09-10 01:05] LABS: INR 0.9; Prothrombin Time 12.9 Seconds (11.1-14.7)
[2020-09-10 01:08] LABS: Magnesium 2.1 mg/dL (1.6-2.3); Phosphorus 3.8 mg/dL (2.5-4.5)
[2020-09-10 01:10] LABS: Alanine Aminotransferase 21 U/L (4-50); Alkaline Phosphatase 73 U/L (38-126); Anion Gap 9 mmol/L (8-16); Aspartate Amino Transferase 28 U/L (17-59); Bilirubin,Total 0.3 mg/dL (0.2-1.3); Blood Urea Nitrogen 10 mg/dL (9-20); Calcium 8.4 mg/dL (8.4-10.2); Carbon Dioxide 27 mmol/L (22-30); Chloride 110 mmol/L (98-107); Estimated Glomerular Filt Rate > 60; Glucose 92 mg/dL (75-110); Sodium 146 mmol/L (137-145)
[2020-09-10 01:14] LABS: Ethanol 222 mg/dL (<10)
[2020-09-10 01:56] LABS: Add Urine Microscopic? NO; Appearance Urine Clear (Clear); Bilirubin Urine Negative (Negative); Blood Urine Negative (Negative); Color Urine Colorless (Yellow); Glucose Urine UA Negative (Negative); Ketones Urine Negative (Negative); Leukocyte Esterase Ur Negative LEU/UL (Negative); Nitrate Urine Negative (Negative); Protein Urine Negative (Negative); Specific Grav Ur 1.005 (1.001-1.035); Urobilinogen Urine Negative mg/dL (<2.0)
[2020-09-10 02:06] LABS: Amphetamine Screen Urine Negative (Negative); Barbiturate Screen Urine Negative (Negative); Benzodiazepines Screen Urine Negative (Negative); Cannabinoid Screen Urine Negative (Negative); Cocaine Screen Urine Negative (Negative); Methadone Screen Urine Negative (Negative); Opiate Screen Urine Negative (Negative); Phencyclidine Screen Urine Negative (Negative)
--- NOTE | 2020-09-10 02:44 | PM.IMHP ---
H&P: HPI History of Present Illness Date/Time: 09/10/20 02:44 Chief complaint: Suicide attempt, overdose Narrative: This is a 25 year old male with history of schizophrenia who presented to the hospital secondary to acute intentional overdose. The patient was found outside lying on his driveway and it appears that he has fallen and suffered facial trauma. The pateint's mother called the ER and reported that the patient was texting a friend tonight and told them that he intended to end his life tonight by alcohol intoxication. His family also reported that the patient may have possibly overdosed on benzodiazepines, crack or cocaine. The patient is obtunded but arouses to painful stimuli. He is currently breathing well. No other history is obtainable from the patient due to his intoxicated state. CT head was notable for nasal bone fracture. ER provider has consulted our Flat Ironer. 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 Depression Surgical History Surgical History H/O cataract extraction left eye . Patient stated he had a cataract from being premature. Family History Family History Father Alcoholism Social History Social History Social History: The patient lives with his grandmother. The patient does not have a durable power insurance defense attorney for healthcare. The patient is full code. Patient works for a [employer]. The patient states that he drinks anywhere from 12-16 beers a day. He does occasionally use marijuana. He is single does not have any children. He smokes 1-2 packs of cigarettes a day. Smoking packs per day: 1 Smoking cigarettes per day: 20.0 Years smoked: 3 Smoking pack-years: 3.00 Smoking status: Current every day smoker Tobacco type: cigarettes Additional smoking assessment comments: trying to quit Alcohol intake: current Drinks per week: 105 Substance use: former Substance use type: marijuana Other substance usage details: CBD/THC Last use: 08/06/20 Gender identity (if verbalized by the patient): Male Spiritual care concerns: No Agree to blood products: Yes Meds Home Medications and Allergies Home Medications Medication Instructions Recorded Confirmed Type No Home Medications 08/12/20 08/12/20 History chlordiazepoxide HCl 25 mg PO Q8H PRN #20 cap 08/13/20 Rx folic acid 1 mg PO DAILY 30 Days #30 tablet 08/13/20 Rx nicotine [Nicoderm CQ] 1 patch TRANSDERMAL QAM #14 ea 08/13/20 Rx thiamine HCl (vitamin B1) [Vitamin 100 mg PO QAM 30 Days #30 tablet 08/13/20 Rx B-1] Allergies Allergy/AdvReac Type Severity Reaction Status Date / Time No Known Allergies Allergy Verified 09/10/20 04:23 Vital Signs Vital Signs - 24 hr 09/09/20 23:08 09/09/20 23:18 09/09/20 23:30 Temperature 36.0 C L Pulse Rate 76 80 81 Respiratory Rate 20 19 20 Blood Pressure 116/85 Pulse Oximetry 97 97 96 09/09/20 23:31 09/10/20 00:01 09/10/20 00:05 Temperature Pulse Rate 81 79 82 Respiratory Rate 21 H 18 20 Blood Pressure 101/69 110/70 Pulse Oximetry 97 98 96 09/10/20 00:42 09/10/20 00:43 09/10/20 00:44 Temperature Pulse Rate 74 74 74 Respiratory Rate 17 17 17 Blood Pressure 100/69 96/69 L Pulse Oximetry 100 100 09/10/20 00:45 09/10/20 00:46 09/10/20 01:00 Temperature Pulse Rate 73 73 75 Respiratory Rate 17 17 19 Blood Pressure 99/66 L Pulse Oximetry 100 09/10/20 01:01 09/10/20 01:15 09/10/20 01:16 Temperature Pulse Rate 75 75 75 Respiratory Rate 18 20 19
--- NOTE | 2020-09-10 04:29 | PC.NURSE ---
This patient, Talat Villagomez II, was admitted to Intensive Care Unit-3 at 0350. Patient/family oriented to hospital policies and general routines including ID bracelet, bed and alarms, visiting hours, pain management, procedures, bathroom and other care routines, personal items, smoking policy, room service/diet, and visiting hours. Pt arousable to shaking. Refuses to answer questions. Who gave them permission to pick me up? Pt states he was sleeping tonight and drinking. Denies trying to hurt self but will not answer any other questions. Unable to complete admission process. Denies taking any home medications even when asked about recent prescriptions filled. Will attempt admission questions when pt more awake. Information on how to activate the Rapid Response Team has been discussed. Patient/Family are encouraged to report perceived risks to care and to ask questions if they do not understand what they are told or what they should do.
--- NOTE | 2020-09-10 05:47 | PC.NURSE ---
Pt gave permission to give information to father.
[2020-09-10] MEDS: DEXTROSE 5% 1,000 ML 1,000 ML 100 ML IV CONT ×2 (05:57→16:41)
[2020-09-10 07:17] LABS: Basophils Absolute Auto 0.1 K/mm3 (0.0-0.1); Basophils Percent Auto 0.5 % (0.2-1.2); Eosinophils Absolute Auto 0.2 K/mm3 (0-0.3); Eosinophils Percent Auto 1.9 % (0-4.4); Hematocrit 42.3 % (42.0-52.0); Hemoglobin 14.2 g/dL (14.0-18.0); Immature Granulocyte Absolute 0.08 K/mm3 (0.00-0.031); Immature Granulocyte Percent A 0.6 % (0-0.5); Lymphocytes Absolute Auto 2.69 K/mm3 (0.9-3.2); Lymphocytes Percent Auto 20.8 % (18.3-44.2); Mean Corpuscular HGB Conc 33.6 g/dl (32-36); Mean Corpuscular Hemoglobin 32.2 pg (26-34); Mean Corpuscular Volume 95.9 fl (80-100); Monocytes Absolute Auto 1.3 K/mm3 (0.1-0.6); Monocytes Percent Auto 10.3 % (2.6-8.5); Neutrophils Absolute Auto 8.6 K/mm3 (1.3-6.7); Neutrophils Percent Auto 65.9 % (45.5-73.1); Platelet Count Result 193 k/mm3 (150-375); Red Blood Count 4.41 M/mm3 (4.6-6.20); Red Cell Distribution Width 13.4 % (11.5-14.5)
[2020-09-10 07:26] LABS: Anion Gap 9 mmol/L (8-16); Blood Urea Nitrogen 8 mg/dL (9-20); Calcium 8.3 mg/dL (8.4-10.2); Carbon Dioxide 25 mmol/L (22-30); Chloride 110 mmol/L (98-107); Estimated CRCL calculation 121 ml/min; Estimated Glomerular Filt Rate > 60; Glucose 92 mg/dL (75-110); Sodium 144 mmol/L (137-145)
[2020-09-10] MEDS: LACTATED RINGERS 1,000 ML 999 ML IV CONT (08:01)
[2020-09-10 11:39] LABS: Ethanol 72 mg/dL (<10)
[2020-09-10 14:03] LABS: Device NASAL CANNULA
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
--- NOTE | 2020-09-10 18:55 | PC.NURSE ---
This patient, Talat Villagomez II, was received from ICU on 09/10/20 at 1857. Patient/family oriented to unit policies and routines
--- NOTE | 2020-09-10 18:59 | PC.NURSE ---
PATIENT TRANSFERRED TO ROOM 314. REPORT GIVEN TO SHERMAN WALL. ALL QUESTIONS ANSWERED. BELONGINGS SENT WITH PATIENT. SITTER AT BEDSIDE.
[2020-09-11] MEDS: DEXTROSE 5% 1,000 ML 1,000 ML 100 ML IV CONT (04:17)
[2020-09-11 05:42] VITALS: BP 101/53; PULSE 62; RESP 18; TEMP 36.7; O2SAT 100
[2020-09-11 06:25] LABS: Hematocrit 41.2 % (42.0-52.0); Hemoglobin 13.8 g/dL (14.0-18.0); Mean Corpuscular HGB Conc 33.5 g/dl (32-36); Mean Corpuscular Hemoglobin 32.2 pg (26-34); Mean Corpuscular Volume 96.3 fl (80-100); Mean Platelet Volume 10.5 fl (7.4-10.4); Platelet Count Result 178 k/mm3 (150-375); Red Blood Count 4.28 M/mm3 (4.6-6.20); Red Cell Distribution Width 13.3 % (11.5-14.5); White Blood Count 10.3 K/mm3 (4.5-10.0)
[2020-09-11 06:45] LABS: Alanine Aminotransferase 18 U/L (4-50); Albumin Level 3.8 g/dL (3.5-5.1); Alkaline Phosphatase 78 U/L (38-126); Anion Gap 4 mmol/L (8-16); Aspartate Amino Transferase 27 U/L (17-59); Bilirubin,Total 0.4 mg/dL (0.2-1.3); Blood Urea Nitrogen 8 mg/dL (9-20); Carbon Dioxide 31 mmol/L (22-30); Chloride 104 mmol/L (98-107); Estimated CRCL calculation 100 ml/min; Estimated Glomerular Filt Rate > 60; Glucose 119 mg/dL (75-110); Potassium 4.2 mmol/L (3.4-5.0); Sodium 139 mmol/L (137-145)
[2020-09-11 08:00] VITALS: BP 112/65; PULSE 68
[2020-09-11 12:00] VITALS: BP 110/64; PULSE 55
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
[2020-09-11 14:00] VITALS: BP 117/79; PULSE 76; RESP 20; TEMP 36.8; O2SAT 99
== END 2020-09-11 15:10 | disposition home or self-care (01) | DRG 907 ==
LOC: ANHED 09-10 02:16 → ANH3MEDSUR 09-11 09:50 → ANHICU 09-12 16:29
PROVIDERS: Internal Medicine; Admitting Provider Family Medicine; Emergency Provider Emergency Medicine; Visit Provider Family Medicine
DX: T50.902A Poisoning by unspecified drugs, medicaments and biological substances, intentional self-harm, initial encounter (principal); G92 Toxic encephalopathy; E87.0 Hyperosmolality and hypernatremia; F84.5 Asperger's syndrome; F10.229 Alcohol dependence with intoxication, unspecified; Y90.7 Blood alcohol level of 200-239 mg/100 ml; S01.81XA Laceration without foreign body of other part of head, initial encounter; S02.2XXA Fracture of nasal bones, initial encounter for closed fracture; F90.9 Attention-deficit hyperactivity disorder, unspecified type; F41.8 Other specified anxiety disorders; F17.210 Nicotine dependence, cigarettes, uncomplicated; F20.9 Schizophrenia, unspecified; H54.40 Blindness, one eye, unspecified eye; Z98.42 Cataract extraction status, left eye; W18.39XA Other fall on same level, initial encounter
CPT/HCPCS: 12011; 36415; 36600; 51701; 70450; 70486; 71045; 72125; 80048; 80053; 80307; 81003; 82375; 82805; 82948; 83050; 83735; 84100; 85025; 85027; 85610; 85730; 90471; 90715; 93005; 96365; 96375; 99285; J2405; J3411; J7030; J7070; J7120; J7121

== ENCOUNTER 2021-06-26 16:35 | Emergency (ER) | payer MEDICARE, MEDICAID, SELFPAY ==
[2021-06-26 17:48] VITALS: BP 154/97; PULSE 116; RESP 14; TEMP 36.9; O2SAT 100
[2021-06-26 18:06] LABS: Basophils Absolute Auto 0.1 K/mm3 (0.0-0.1); Basophils Percent Auto 0.6 % (0.2-1.2); Eosinophils Percent Auto 0.4 % (0-4.4); Hematocrit 48.7 % (42.0-52.0); Immature Granulocyte Absolute 0.05 K/mm3 (0.00-0.031); Immature Granulocyte Percent A 0.5 % (0-0.5); Lymphocytes Absolute Auto 1.59 K/mm3 (0.9-3.2); Lymphocytes Percent Auto 15.2 % (18.3-44.2); Mean Corpuscular HGB Conc 32.9 g/dl (32-36); Mean Corpuscular Hemoglobin 31.4 pg (26-34); Mean Corpuscular Volume 95.7 fl (80-100); Mean Platelet Volume 9.7 fl (7.4-10.4); Monocytes Absolute Auto 1.4 K/mm3 (0.1-0.6); Monocytes Percent Auto 13.5 % (2.6-8.5); Neutrophils Absolute Auto 7.3 K/mm3 (1.3-6.7); Neutrophils Percent Auto 69.8 % (45.5-73.1); Platelet Count Result 162 k/mm3 (150-375); Red Blood Count 5.09 M/mm3 (4.6-6.20); Red Cell Distribution Width 13.9 % (11.5-14.5); White Blood Count 10.4 K/mm3 (4.5-10.0)
[2021-06-26 18:16] LABS: Alanine Aminotransferase 90 U/L (4-50); Albumin Level 5.4 g/dL (3.5-5.1); Alkaline Phosphatase 139 U/L (38-126); Anion Gap 14 mmol/L (8-16); Aspartate Amino Transferase 82 U/L (17-59); Bilirubin,Total 0.7 mg/dL (0.2-1.3); Blood Urea Nitrogen 16 mg/dL (9-20); Calcium 10.3 mg/dL (8.4-10.2); Carbon Dioxide 26 mmol/L (22-30); Chloride 93 mmol/L (98-107); Estimated CRCL calculation 98 ml/min; Estimated Glomerular Filt Rate > 60; Glucose 104 mg/dL (65-110); Lipase 57 U/L (23-300); Potassium 4.4 mmol/L (3.4-5.0); Sodium 133 mmol/L (137-145)
[2021-06-26 18:18] LABS: Ethanol < 10 mg/dL (<10)
--- NOTE | 2021-06-26 20:43 | PC.NURSE ---
pt called x2 to be placed in room, 2027 and 2042.
== END 2021-06-26 20:43 | disposition left against medical advice (07) ==
PROVIDERS: Emergency Medicine; Emergency Provider Emergency Medicine
DX: R10.9 Unspecified abdominal pain (principal)
CPT/HCPCS: 36415; 80053; 80307; 83690; 85025; 99199

== ENCOUNTER 2021-09-30 15:13 | Inpatient (IN) | payer OTHER, SELFPAY ==
--- NOTE | ~2021-09-30 | CT_ITS ---
EXAMINATION: CTA chest PE abdomen pel DATE: 09/30/2021 19:10 INDICATION: Right upper quadrant abdominal pain. Tachycardia. TECHNIQUE: Computed tomography angiography (CTA) of the chest was performed with 100 mL Omnipaque-350 intravenous contrast timed to evaluate the pulmonary arteries. Coronal maximum intensity projection 3D-reconstructions were created by the technologist. Computed tomography (CT) of the abdomen and pelv is was performed with intravenous contrast. Automated exposure control and iterative reconstruction t echnique were employed. The dose-length product was 740.27 mGy-cm. COMPARISON: None. FINDINGS: CTA chest: There is mild emphysema. No pleural effusion. The heart size is normal. No pericardial eff usion. There is no pulmonary embolus. CT abdomen and pelvis: There is diffuse hepatic steatosis. The gallbladder, spleen, pancreas, adrenal glands, and right kidney are normal. There is a 5 mm cyst in left kidney. There is prominent fat in the inguinal canals that may be small hernias. There are no dilated loops of bowel. The appendix is n ormal. There are no pathologically enlarged lymph nodes. There is no free intraperitoneal fluid. The bones are unremarkable. IMPRESSION: 1. No pulmonary embolus. Sensitivity is moderately decreased by motion artifact. 2. Mild emphysema. 3. Diffuse hepatic steatosis. 4. Prominent fat in the inguinal canals, which may be small hernias. Reviewed, dictated and finalized at location A. R DEFENSE FORENSICS ANALYST IMPRESSION: 1. No pulmonary embolus. Sensitivity is moderately decreased by motion artifact . 2. Mild emphysema. 3. Diffuse hepatic steatosis. 4. Prominent fat in the inguinal canals, which may be small hernias.
--- NOTE | ~2021-09-30 | XR_ITS ---
EXAMINATION: XR chest 1V portable EXAM DATE: 09/30/2021 17:08 INDICATION: Chest pain X 1 1 day, right-sided chest pain. TECHNIQUE: Portable AP frontal chest x-ray was obtained. Comparison is made to prior examination from 09/10/2020. FINDINGS: The lungs are clear. There are no pleural effusions. The cardiomediastinal silhouette is within normal limits. There is no pneumothorax suspected. The bones and soft tissues are unremarkab le. IMPRESSION: No acute cardiopulmonary findings. Reviewed, dictated and finalized at location A. LE SETTER
[2021-09-30 16:26] VITALS: BP 95/72; PULSE 93; RESP 20; TEMP 36.5; O2SAT 96
--- NOTE | 2021-09-30 16:28 | ECG_ITS ---
Measurements Intervals [place] Rate: 87 P: 65 [place]: 141 QRS: 82 QRSD: 81 T: 57 QT: 352 QTc: 424 Interpretive Statements SINUS RHYTHM DELAYED PRECORDIAL R/S TRANSITION BORDERLINE ECG Electronically Signed On 09-30-2021 16:36:15 COORDINATOR [employer] by Raul Gamboa D.O.
[2021-09-30 16:46] VITALS: BP 151/105; PULSE 105; RESP 24; O2SAT 96
[2021-09-30] MEDS: THIAMINE HCL 100 MG TABLET PO (17:05)
[2021-09-30] MEDS: FAMOTIDINE 20 MG/2 ML VIAL IV PUSH (17:05)
[2021-09-30] MEDS: LORazepam INJ (*CRX) 2 MG/ML VIAL IV PUSH ×2 (17:05→20:48)
[2021-09-30] MEDS: SODIUM CHLORIDE 0.9% IV 1,000 ML 999 ML IV CONT (17:06)
--- NOTE | 2021-09-30 17:06 | ED.GENADULT ---
HPI - General Adult General Chief complaint: Nausea/Vomiting/Diarrhea Stated complaint: Nausea/vomiting. Time Seen by Provider: 09/30/21 16:43 Source: patient Mode of arrival: EMS Limitations: no limitations History of Present Illness HPI narrative: Patient brought in by EMS with reports of abdominal pain, nausea, and heart spasms . He has a longstanding history of ETOH abuse. He states he typically consumes about 25 beers per day. He drank in accordance with his normal ETOH intake yesterday. Today he woke from sleep around 1000 and had one beer. He has experienced intermittent right sided abdominal pain and left sided chest pain since that time. He cannot provide me with duration of time with which his episodes last, however he states he has experienced episodes too frequently to count. He refers to his symptoms as liver pain and heart spasms . He states he has required hospitalization in the past for ETOH withdrawal. He was sober for a period of about four months earlier this year. He does admit to using cocaine about once a month with last intake about one week ago. He denies any other illicit drugs. 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 He reports seeing white spots recently but denies visual hallucinations at the present time. He denies any AH. He contacted his mother and told her that he needed to come to the hospital for further evaluation. She contacted EMS, who brought him here for further evaluation. He further reports shortness of breath. Related Data Home Medications Medication Instructions Recorded Confirmed Vivitrol 03/09/20 duloxetine 300 mg PO DAILY 03/09/20 Allergies Allergy/AdvReac Type Severity Reaction Status Date / Time No Known Allergies Allergy Verified 03/09/20 15:04 Review of Systems Review of Systems: CONSTITUTIONAL: Denies fever, chills, or sweats. EYES: Denies visual changes, redness, or discharge. ENT: Denies rhinorrhea, congestion, sore throat, or otalgia. CARDIOVASCULAR:Reports heart spasms . Denies palpitations, or edema. RESPIRATORY: Reports difficulty breathing . Denies cough GASTROINTESTINAL: Reports nausea and intermittent abdominal pain. Denies vomiting, or diarrhea. GENITOURINARY: Denies dysuria or hematuria. SKIN: Denies rash or itching. MUSCULOSKELETAL: Denies back pain, joint pain, or myalgia. NEUROLOGIC:Reports tremor. Denies headache. PSYCHIATRIC: Reports anxiety and visual hallucinations PMF Past Medical History Medical History (Updated 09/30/21 @ 20:35 by KEVEN Johnson, ) Alcohol abuse Schizophrenia Surgical History Surgical History No pertinent past surgical history Family History Family History Mother Urinary tract infection Father History of cholecystectomy Social History Social History Smoking status: Unknown if ever smoked Alcohol intake: current Alcohol use details: 25 beers a day Substance use type: crack/cocaine Living arrangements: with family Additional living arrangements comments: Lives with grandma Additional occupation/education comments: works in [employer] but currently is out of work Gender identity (if verbalized by the patient): Male Spiritual care concerns: No Exam Narrative: GENERAL: Mild distress HEAD: Normocephalic, atraumatic. EYES: PERRLA and EOMI. ENT: Nares clear, no rhinorrhea or epistaxis. Mucous membranes moist. Oropharynx without tonsillar hypertrophy exudate or other lesions. Bilateral TMs pearly savage nonbulging NECK: Supple. No adenopathy or masses. No carotid bruits or JVD CHEST: Clear to auscultation. No respiratory distress. No wheezes rales or rhonchi HEART: Regular rate a
[2021-09-30 17:24] LABS: Basophils Percent Auto 0.4 % (0.2-1.2); Eosinophils Percent Auto 0.2 % (0-4.4); Hematocrit 45.7 % (42.0-52.0); Hemoglobin 16.1 g/dL (14.0-18.0); Immature Granulocyte Absolute 0.06 K/mm3 (0.00-0.031); Immature Granulocyte Percent A 0.5 % (0-0.5); Lymphocytes Absolute Auto 1.31 K/mm3 (0.9-3.2); Mean Corpuscular HGB Conc 35.2 g/dl (32-36); Mean Corpuscular Hemoglobin 33.5 pg (26-34); Mean Platelet Volume 9.2 fl (7.4-10.4); Monocytes Absolute Auto 1.2 K/mm3 (0.1-0.6); Monocytes Percent Auto 10.7 % (2.6-8.5); Neutrophils Absolute Auto 8.3 K/mm3 (1.3-6.7); Neutrophils Percent Auto 76.2 % (45.5-73.1); Platelet Count Result 239 k/mm3 (150-375); Red Blood Count 4.81 M/mm3 (4.6-6.20); Red Cell Distribution Width 13.4 % (11.5-14.5); White Blood Count 10.9 K/mm3 (4.5-10.0)
[2021-09-30 17:30] LABS: Alanine Aminotransferase 75 U/L (4-50); Albumin Level 5.2 g/dL (3.5-5.1); Alkaline Phosphatase 135 U/L (38-126); Anion Gap 15 mmol/L (8-16); Aspartate Amino Transferase 90 U/L (17-59); Bilirubin,Total 0.6 mg/dL (0.2-1.3); Blood Urea Nitrogen 10 mg/dL (9-20); Calcium 9.8 mg/dL (8.4-10.2); Carbon Dioxide 27 mmol/L (22-30); Chloride 97 mmol/L (98-107); Estimated CRCL calculation 105 ml/min; Estimated Glomerular Filt Rate > 60; Glucose 110 mg/dL (65-110); Lipase 48 U/L (23-300); Potassium 4.2 mmol/L (3.4-5.0); Sodium 139 mmol/L (137-145)
[2021-09-30 17:31] LABS: Ethanol 12 mg/dL (<10); Magnesium 1.8 mg/dL (1.6-2.3); Phosphorus 3.7 mg/dL (2.5-4.5)
[2021-09-30 17:32] VITALS: BP 128/96; PULSE 91; RESP 20; O2SAT 100
[2021-09-30] MEDS: THERAPEUTIC MULTIVITAMINS/MINERALS TAB (*BKC) 1 TABLET PO (17:32)
[2021-09-30] MEDS: FOLIC ACID 1 MG TABLET PO (17:32)
[2021-09-30 17:42] LABS: Troponin I < 0.012 ng/mL (0.000-0.034)
[2021-09-30 18:21] LABS: Add Urine Microscopic? NO; Appearance Urine Clear (Clear); Bilirubin Urine Negative (Negative); Blood Urine Negative (Negative); Color Urine Yellow (Yellow); Glucose Urine UA Negative (Negative); Ketones Urine Negative (Negative); Leukocyte Esterase Ur Negative LEU/UL (Negative); Nitrate Urine Negative (Negative); Protein Urine Negative (Negative); Specific Grav Ur 1.011 (1.001-1.035); Urobilinogen Urine Negative mg/dL (<2.0)
[2021-09-30 18:32] VITALS: BP 135/88; PULSE 103; RESP 20; O2SAT 100
[2021-09-30 18:35] LABS: Amphetamine Screen Urine Negative (Negative); Barbiturate Screen Urine Negative (Negative); Benzodiazepines Screen Urine Negative (Negative); Cannabinoid Screen Urine Negative (Negative); Cocaine Screen Urine Positive (Negative); Methadone Screen Urine Negative (Negative); Opiate Screen Urine Negative (Negative); Phencyclidine Screen Urine Negative (Negative)
[2021-09-30] MEDS: LORazepam INJ (*CRX) 2 MG/ML VIAL 1 MG IV PUSH (19:05)
[2021-09-30 20:50] VITALS: BP 114/68; PULSE 88; RESP 22; O2SAT 100
--- NOTE | 2021-09-30 21:44 | PM.IMHP ---
H&P: HPI History of Present Illness Date/Time: 09/30/21 21:44 Chief Complaint: Spasms Narrative: This is a 26-year-old male with past medical history significant for alcohol dependence according to records patient drinks roughly 25 beers a day patient was able to stay sober for 4 months earlier in the year but due to recent job loss he has been staying at home prolonged periods of time he usually works as a tool repairer, patient has been doing his usual drinking of 25 beers a day roughly and today in the morning he woke up with the spasms in his chest abdomen he was having white spots on his visual field as well he denies any formication, he drank a beer around 10:00 a.m. the time that he woke up, he denies any nausea, any vomiting, any diarrhea, any heartburn, no fevers, no rigors, no chills, no cough, history taking is limited as patient is actively withdrawing he is speaking in a whispering voice and not finishing his words at times. Preliminary workup was significant for CTA chest abdomen and pelvis no pulmonary embolism,mild emphysema,diffuse hepatic steatosis,prominent fat in the inguinal canals, which may be small hernias, a urinalysis is U tox was positive for cocaine, chest x-ray with no acute findings, AST ALT alk phos was 90, 75 and 130 respectively. Review of Systems Review of Systems: Body spasms abdominal pain retrosternal pain heart spasm some liver pain Constitutional: Constitutional: Denies chills, Denies fever(s), Denies malaise and Denies night sweats Eyes: Eyes: Reports spots in vision ENT: Denies dysphagia, Denies nasal congestion, Denies nasal discharge, Denies nasal obstruction and Denies odynophagia Cardiovascular: Cardiovascular: Denies edema, Denies radiating jaw, neck or arm pain and Denies palpitations Respiratory: Respiratory: Denies cough and Denies excessive phlegm production Gastrointestinal: Gastrointestinal: Reports abdominal pain, Denies dyspepsia, Denies heartburn, Denies diarrhea, Denies nausea and Denies vomiting Genitourinary: Genitourinary: Denies dysuria Musculoskeletal: Musculoskeletal: Denies arthralgias and Denies joint swelling Integumentary/Breasts: Skin/Breast: Denies rash Neurologic: Denies focal weakness, Denies seizure-like activity, Denies Sensory deficit (Neuro) and Denies tremor(s) Psychiatric: Psychiatric: Reports no additional psychiatric complaints and Reports as per HPI Endocrine: Endocrine: Reports no additional endocrine complaints and Reports as per HPI Hematologic/Lymphatic: Hematologic/Lymphatic: Reports no additional hematologic/lymphatic complaints and Reports as per HPI Allergic/Immunologic: Allergic/Immunologic: Reports no additional allergic/immunologic complaints and Reports as per HPI [facility] Past Medical History Medical History (Updated 10/01/21 @ 02:07 by Jaylon Banda MD) Alcohol abuse Schizophrenia Surgical History Surgical History No pertinent past surgical history Family History Family History Mother Urinary tract infection Father History of cholecystectomy Social History Social History Smoking status: Unknown if ever smoked Alcohol intake: current Alcohol use details: 25 beers a day Substance use type: crack/cocaine Living arrangements: with family Additional living arrangements comments: Lives with grandma Additional occupation/education comments: works in [employer] but currently is out of work Gender identity (if verbalized by the patient): Male Spiritual care concerns: No Meds Home Medications and Allergies Home Medications Medication Instructions Recorded Confirmed Type Vivitrol 03/09/20 History duloxetine 300 mg PO DAILY 03/09/20 History Allergies Allergy/AdvReac Type Severity Reaction Status Date / Time
[2021-09-30] MEDS: NICOTINE (*PBKC) 21 MG PATCH 1 PATCH TRANSDERM (21:50)
[2021-09-30 22:23] LABS: Troponin I < 0.012 ng/mL (0.000-0.034)
[2021-10-01] VITALS (10 sets, daily range): BP systolic 102–134; BP diastolic 68–92; PULSE 63–111; RESP 13–25; O2SAT 98–100; BMI 25.4
[2021-10-01] MEDS: SODIUM CHLORIDE 0.9% IV 1,000 ML 125 ML IV CONT (01:16)
[2021-10-01] MEDS: LORazepam INJ (*CRX) 2 MG/ML VIAL IV PUSH ×2 (01:44→11:17)
[2021-10-01] MEDS: THIAMINE HCL INJ 100 MG, FOLIC ACID INJ 1 MG, MULTIVITAMINS-12 INJ VIAL 1 5 ML, MULTIVI... IV CONT (02:27)
[2021-10-01] MEDS: chlordiazePOXIDE (*CRX) 25 MG CAPSULE 50 MG PO ×2 (06:21→11:17)
--- NOTE | 2021-10-01 06:21 | ADMIMU ---
This patient, Talat Villagomez II, was admitted to IMU status, and placed in Intensive Care Unit-8. Patient/family oriented to hospital policies and general routines including ID bracelet, bed and alarms, visiting hours, pain management, procedures, bathroom and other care routines, personal items, smoking policy, room service/diet, and visiting hours. Valuables list has been completed. Information on how to activate the Rapid Response Team has been discussed. Patient/Family are encouraged to report perceived risks to care and to ask questions if they do not understand what they are told or what they should do.
[2021-10-01 07:24] LABS: Basophils Percent Auto 0.4 % (0.2-1.2); Eosinophils Absolute Auto 0.1 K/mm3 (0-0.3); Hematocrit 41.3 % (42.0-52.0); Hemoglobin 14.1 g/dL (14.0-18.0); Immature Granulocyte Absolute 0.02 K/mm3 (0.00-0.031); Immature Granulocyte Percent A 0.3 % (0-0.5); Lymphocytes Absolute Auto 1.09 K/mm3 (0.9-3.2); Mean Corpuscular HGB Conc 34.1 g/dl (32-36); Mean Corpuscular Hemoglobin 32.5 pg (26-34); Mean Corpuscular Volume 95.2 fl (80-100); Mean Platelet Volume 9.4 fl (7.4-10.4); Monocytes Percent Auto 13.9 % (2.6-8.5); Neutrophils Absolute Auto 4.7 K/mm3 (1.3-6.7); Neutrophils Percent Auto 68.4 % (45.5-73.1); Platelet Count Result 180 k/mm3 (150-375); Red Blood Count 4.34 M/mm3 (4.6-6.20); Red Cell Distribution Width 13.2 % (11.5-14.5); White Blood Count 6.8 K/mm3 (4.5-10.0)
[2021-10-01 07:27] LABS: Anion Gap 9 mmol/L (8-16); Blood Urea Nitrogen 11 mg/dL (9-20); Calcium 8.6 mg/dL (8.4-10.2); Carbon Dioxide 25 mmol/L (22-30); Chloride 103 mmol/L (98-107); Estimated CRCL calculation 121 ml/min; Estimated Glomerular Filt Rate > 60; Glucose 111 mg/dL (65-110); Potassium 3.5 mmol/L (3.4-5.0); Sodium 137 mmol/L (137-145)
[2021-10-01] MEDS: ENOXAPARIN 40 MG/0.4 ML SYRINGE SUB-Q (10:24)
[2021-10-01] MEDS: PANTOPRAZOLE SODIUM IV 40 MG VIAL IV PUSH (10:24)
--- NOTE | 2021-10-01 11:58 | PM.IMPN ---
Progress Note: A&P Assessment and Plan (1) DTs (delirium tremens): Code(s): F10.231 - Alcohol dependence with withdrawal delirium Status: Acute Assessment and Plan: [facility] protocol ongoing Librium 50 mg p.o. q.6 hours Supportive care Continue to monitor ECG reviewed (2) Alcohol dependence: Code(s): F10.20 - Alcohol dependence, uncomplicated Status: Acute Assessment and Plan: Associated with alcoholic liver disease counseling Referral to 12 step program in the outpatient setting once clinically stable Banana bag Supportive care (3) Schizophrenia: Code(s): F20.9 - Schizophrenia, unspecified Status: Acute Assessment and Plan: Patient is on duloxetine at home Continue duloxetine Additional Plan Anticipate discharge probably in the next 24-48 hours Subjective Date/time seen: 10/01/21 11:58 Interval history: Patient seen and examined Patient feels per than yesterday patient is more alert on CIWA protocol Patient denies fever headache chest pain shortness of breath I am seeing the patient for DT Exam Narrative: Alert Chest no wheeze crackles Abdomen nontender nondistended CVS S1 + S2 Lower extremity edema Objective Data Vital Signs Vital Signs: Vital Signs - 24 hr 09/30/21 16:26 09/30/21 16:46 09/30/21 17:32 Temperature 97.7 F Pulse Rate 93 105 H 91 Pulse Rate [Bilateral Radial] Respiratory Rate 20 24 H 20 Blood Pressure 95/72 L 151/105 H 128/96 H Pulse Oximetry 96 96 100 09/30/21 18:32 09/30/21 20:50 10/01/21 00:47 Temperature Pulse Rate 103 H 88 93 Pulse Rate [Bilateral Radial] Respiratory Rate 20 22 H 25 H Blood Pressure 135/88 114/68 134/92 H Pulse Oximetry 100 100 100 10/01/21 04:28 10/01/21 05:23 10/01/21 05:32 Temperature Pulse Rate 70 63 76 Pulse Rate [Bilateral Radial] Respiratory Rate 13 18 15 Blood Pressure 108/68 130/92 H 102/90 Pulse Oximetry 100 99 99 10/01/21 06:22 10/01/21 08:00 10/01/21 10:00 Temperature Pulse Rate 64 73 Pulse Rate [Bilateral Radial] 91 Respiratory Rate 14 Blood Pressure 124/75 Pulse Oximetry 98 10/01/21 11:16 10/01/21 11:25 Temperature Pulse Rate 91 Pulse Rate [Bilateral Radial] 111 H Respiratory Rate 22 H Blood Pressure 125/83 Pulse Oximetry 100 Intake/Output Intake/Output: Intake & Output 09/28/21 09/29/21 09/30/21 10/01/21 23:59 23:59 23:59 23:59 Intake Total 1000 120 Balance 1000 120 Meds/Results Medications: Active Medications Generic Name Dose Route Start Last Admin Trade Name Freq PRN Reason Stop Dose Admin Chlordiazepoxide HCl 50 mg 10/01/21 06:00 10/01/21 11:17 Chlordiazepoxide (*Crx) 25 Mg Capsule PO 50 mg Q6HR MALOU Administration Enoxaparin Sodium 40 mg 10/01/21 09:00 10/01/21 10:24 Enoxaparin 40 Mg/0.4 Ml Syringe SUB-Q 40 mg DAILY MALOU Administration Sodium Chloride 1,000 mls @ 125 mls/hr 09/30/21 20:25 10/01/21 01:16 Normal Saline Iv IV CONT 125 mls/hr .Q8H MALOU Administration Lorazepam 2 mg 09/30/21 20:55 10/01/21 11:17 Lorazepam Inj (*Crx) 2 Mg/Ml Vial IV PUSH 2 mg Q2HR PRN Administration CIWA GREATER THAN 9 Nicotine 1 patch 10/01/21 09:00 10/01/21 10:20 Nicotine (*Pbkc) 21 Mg Patch TRANSDERM Not Given QAM MALOU Ondansetron HCl 4 mg 09/30/21 20:25 Ondansetron Inj 4 Mg/2 Ml Vial IV PUSH Q4H PRN Nausea Pantoprazole Sodium 40 mg 10/01/21 09:00 10/01/21 10:24 Pantoprazole Sodium Iv 40 Mg Vial IV PUSH 40 mg QAM MALOU Administration Radiology Results: ITS Impressions Chest X-Ray 09/30/21 17:13 IMPRESSION: No acute cardiopulmonary findings. Chest/Abdomen/Pelvis CTA 09/30/21 19:14 IMPRESSION: 1. No pulmonary embolus. Sensitivity is moderately decreased by motion artifact. 2. Mild emphysema. 3. Diffuse hepatic steatosis. 4. Prominent fat in the inguinal canals, which may be small hernias. Labs Labs:
--- NOTE | 2021-10-01 16:08 | PM.DS ---
DS: Admitting Diagnosis Discharge Date 10/01/21 Admitting Diagnosis hallucination DS: Discharge Diagnosis Discharge Diagnosis (1) DTs (delirium tremens): Code(s): F10.231 - Alcohol dependence with withdrawal delirium Status: Acute Assessment and Plan: [facility] protocol ongoing Librium 50 mg p.o. q.6 hours Supportive care Continue to monitor ECG reviewed (2) Alcohol dependence: Code(s): F10.20 - Alcohol dependence, uncomplicated Status: Acute Assessment and Plan: Associated with alcoholic liver disease counseling Referral to 12 step program in the outpatient setting once clinically stable Banana bag Supportive care (3) Schizophrenia: Code(s): F20.9 - Schizophrenia, unspecified Status: Acute Assessment and Plan: Patient is on duloxetine at home Continue duloxetine DS: Summary Hospital Course Hospital Course: see assessment and plan patient left AMA Time Spent with Patient Time attestation: Total time spent providing and/or coordinating discharge services: Exam Narrative: Alert Chest no wheeze crackles Abdomen nontender nondistended CVS S1 + S2 Lower extremity edema DS: Data Data Completed and Pending Labs on day of discharge: Labs from last 24 hours 10/01/21 10/01/21 09/30/21 07:07 07:07 21:25 WBC 6.8 RBC 4.34 L Hgb 14.1 Hct 41.3 L MCV 95.2 MCH 32.5 MCHC 34.1 RDW 13.2 Plt Count 180 MPV 9.4 Immature Gran % (Auto) 0.3 Neut % (Auto) 68.4 Lymph % (Auto) 16.0 L [place] % (Auto) 13.9 H Eos % (Auto) 1.0 Baso % (Auto) 0.4 Lymph # (Auto) 1.09 [place] # (Auto) 1.0 H Eos # (Auto) 0.1 Baso # (Auto) 0.0 Abs Immat Gran (auto) 0.02 Absolute Neuts (auto) 4.7 Absolute Nucleated RBC 0.0 Nucleated RBC % 0.0 Sodium 137 Potassium 3.5 Chloride 103 Carbon Dioxide 25 Anion Gap 9 BUN 11 Creatinine 0.80 Estim Creat Clear Calc 121 Estimated GFR > 60 Glucose 111 H Calcium 8.6 Phosphorus Magnesium Total Bilirubin AST ALT Alkaline Phosphatase Troponin I < 0.012 Total Protein Albumin Lipase Urine Color Urine Appearance Urine pH Ur Specific [place] Urine Protein Urine Glucose (UA) Urine Ketones Ur Blood (Man) Urine Nitrate Urine Bilirubin Urine Urobilinogen Leukocyte Esterase Rfl Urine Opiates Screen Urine Methadone Screen Ur Barbiturates Screen Ur Phencyclidine Scrn Ur Amphetamine Screen U Benzodiazepines Scrn Urine Cocaine Screen U Cannabinoids Screen Ethyl Alcohol 09/30/21 09/30/21 09/30/21 18:03 18:03 17:11 WBC RBC Hgb Hct MCV MCH MCHC RDW Plt Count MPV Immature Gran % (Auto) Neut % (Auto) Lymph % (Auto) [place] % (Auto) Eos % (Auto) Baso % (Auto) Lymph # (Auto) [place] # (Auto) Eos # (Auto) Baso # (Auto) Abs Immat Gran (auto) Absolute Neuts (auto) Absolute Nucleated RBC Nucleated RBC % Sodium Potassium Chloride Carbon Dioxide Anion Gap BUN Creatinine Estim Creat Clear Calc Estimated GFR Glucose Calcium Phosphorus Magnesium Total Bilirubin AST ALT Alkaline Phosphatase Troponin I Total Protein Albumin Lipase Urine Color Yellow Urine Appearance Clear Urine pH 7.0 Ur Specific [place] 1.011 Urine Protein Negative Urine Glucose (UA) Negative Urine Ketones Negative Ur Blood (Man) Negative Urine Nitrate Negative Urine Bilirubin Negative Urine Urobilinogen Negative Leukocyte Esterase Rfl Negative Urine Opiates Screen Negative Urine Methadone Screen Negative Ur Barbiturates Screen Negative Ur Phencyclidine Scrn Negative Ur Amphetamine Screen Negative U Benzodiazepines Scrn Negative Urine Cocaine Screen Positive A U Cannabinoids
== END 2021-10-01 16:20 | disposition left against medical advice (07) | DRG 894 ==
LOC: ANHED 20:35 → ANHICU 10-01 09:42 → ANHIMU 10-03 10:04
PROVIDERS: Emergency Medicine; Admitting Provider Internal Medicine; Emergency Provider Nurse Practitioner; Visit Provider Internal Medicine
DX: F10.231 Alcohol dependence with withdrawal delirium (principal); F20.9 Schizophrenia, unspecified; F14.90 Cocaine use, unspecified, uncomplicated
CPT/HCPCS: 36415; 71045; 71275; 74177; 80048; 80053; 80307; 81003; 83690; 83735; 84100; 84484; 85025; 93005; 96361; 96374; 96375; 99285; A9270; C9113; J1650; J2060; J3411; J3475; J7030; J7042; Q9967

== ENCOUNTER 2021-10-01 16:55 | Emergency (ER) | payer OTHER, SELFPAY ==
--- NOTE | 2021-10-01 17:09 | PC.NURSE ---
PT ARRIVES HERE AT THE ED IMMEDIATELY AFTER LEAVING AMA FROM INPATIENT FLOOR AT THIS HOSPITAL WHERE HE WAS BEING TREATED FOR ETOH REHAB. HE NOW STATES HE THOUGHT THAT HE WOULD JUST BE ABLE TO GO BACK TO HIS ROOM BUT UPON REALIZING THAT WON'T HAPPEN HE DECIDES TO LEAVE AGAIN AND TRY ANOTHER DAY
== END 2021-10-02 01:57 | disposition left against medical advice (07) ==
DX: Z53.21 Procedure and treatment not carried out due to patient leaving prior to being seen by health care provider (principal)
CPT/HCPCS: 99199

== ENCOUNTER 2021-10-20 11:59 | Inpatient (IN) | payer OTHER, SELFPAY ==
[2021-10-20] VITALS (54 sets, daily range): BP systolic 100–149; BP diastolic 71–104; PULSE 65–120; RESP 9–28; TEMP 36.8; O2SAT 91–100
--- NOTE | 2021-10-20 14:23 | ECG_ITS ---
Measurements Intervals [place] Rate: 73 P: 50 [place]: 142 QRS: 65 QRSD: 93 T: 51 QT: 417 QTc: 460 Interpretive Statements SINUS RHYTHM WITH SINUS ARRHYTHMIA DELAYED PRECORDIAL R/S TRANSITION BASELINE ARTIFACT- I, III, AVL, V2-V3 BORDERLINE ECG Electronically Signed On 10-20-2021 17:23:08 [employer]REE [employer] by Raul Gamboa D.O.
[2021-10-20 14:59] LABS: Basophils Absolute Auto 0.1 K/mm3 (0.0-0.1); Basophils Percent Auto 0.6 % (0.2-1.2); Eosinophils Percent Auto 0.1 % (0-4.4); Hematocrit 44.9 % (42.0-52.0); Hemoglobin 15.1 g/dL (14.0-18.0); Immature Granulocyte Absolute 0.05 K/mm3 (0.00-0.031); Immature Granulocyte Percent A 0.5 % (0-0.5); Lymphocytes Absolute Auto 1.53 K/mm3 (0.9-3.2); Lymphocytes Percent Auto 14.2 % (18.3-44.2); Mean Corpuscular HGB Conc 33.6 g/dl (32-36); Mean Corpuscular Hemoglobin 32.9 pg (26-34); Mean Corpuscular Volume 97.8 fl (80-100); Mean Platelet Volume 8.8 fl (7.4-10.4); Monocytes Absolute Auto 1.1 K/mm3 (0.1-0.6); Monocytes Percent Auto 10.6 % (2.6-8.5); Platelet Count Result 213 k/mm3 (150-375); Red Blood Count 4.59 M/mm3 (4.6-6.20); Red Cell Distribution Width 13.7 % (11.5-14.5); White Blood Count 10.7 K/mm3 (4.5-10.0)
--- NOTE | 2021-10-20 15:01 | ED.ALCOHOL ---
HPI - Alcohol General Chief Complaint: Alcohol Stated Complaint: alcohol withdrawal Time Seen by Provider: 10/20/21 14:22 Source: patient Mode of arrival: ambulatory Limitations: no limitations and clinical condition History of Present Illness HPI narrative: Patient is 26 years old white male presented to the ED with shaking, agitation, tremors, nausea, vomiting, not feeling well after stopping drinking alcohol at 5 PM last night. Patient did drink some alcohol for the last 6 years, daily, try to quit at least 4-5 times in the past without success. Patient quit today because he would like to stop drinking. Patient is fully vaccinated for COVID-19, patient denies any fever, chills, abdominal pain, back pain, chest pain, or shortness of breath Related Data Home Medications Medication Instructions Recorded Confirmed No Home Medications 08/12/20 09/11/20 Allergies Allergy/AdvReac Type Severity Reaction Status Date / Time No Known Allergies Allergy Verified 10/20/21 15:19 Review of Systems Review of Systems: CONSTITUTIONAL: Denies fever, chills, or sweats. EYES: Denies visual changes, redness, or discharge. ENT: Denies rhinorrhea, congestion, sore throat, or otalgia. CARDIOVASCULAR: Denies chest pain, palpitations, or edema. RESPIRATORY: Denies cough or dyspnea. GASTROINTESTINAL: Denies abdominal pain, nausea, vomiting, or diarrhea. GENITOURINARY: Denies dysuria or hematuria. SKIN: Denies rash or itching. MUSCULOSKELETAL: Denies back pain, joint pain, or myalgia. NEUROLOGIC: Denies headache, numbness, or weakness. PSYCHIATRIC: Denies anxiety or depression. 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 Depression Surgical History Surgical History H/O cataract extraction left eye . Patient stated he had a cataract from being premature. Family History Family History Father Alcoholism Social History Social History Social History: The patient lives with his grandmother. The patient does not have a durable power senior trial attorney for healthcare. The patient is full code. Patient works for a [employer]. The patient states that he drinks anywhere from 12-16 beers a day. He does occasionally use marijuana. He is single does not have any children. He smokes 1-2 packs of cigarettes a day. Smoking packs per day: 1 Smoking cigarettes per day: 20.0 Years smoked: 4 Smoking pack-years: 4.00 Smoking status: Current every day smoker Tobacco type: cigarettes Second hand tobacco smoke exposure: Yes Additional smoking assessment comments: currently smokes. Alcohol intake: current Drinks per week: 7 Alcohol use details: Patient reports strings complaint of whiskey daily, and 3-4 beers Substance use: current Substance use type: does not use and former substance user Other substance usage details: CBD/THC Last use: MONTH AGO Gender identity (if verbalized by the patient): Male Spiritual care concerns: No Agree to blood products: Yes Exam Narrative: General appearance: Well-developed, well-nourished, shaking, restless Skin: Normal color Head: Normocephalic, nontraumatic Eyes: Clear conjunctiva ENT: Oropharynx normal, ears normal, nose normal Neck: Supple, nontender Chest and respiratory: Airway patent, no respiratory distress, no accessory muscle use Heart: Regular rate/rhythm Abdomen: Soft, nontender, no organomegaly, quiet bowel sounds Vascular: Normal peripheral pulses, normal capillary refill. Musculoskeletal: Normal range of motion, nontender back Neurologic: Alert and oriented ?3, MANAGER REHAB is normal as tested, no gross motor deficit
[2021-10-20 15:09] LABS: Alanine Aminotransferase 53 U/L (4-50); Albumin Level 5.1 g/dL (3.5-5.1); Alkaline Phosphatase 111 U/L (38-126); Anion Gap 10 mmol/L (8-16); Aspartate Amino Transferase 74 U/L (17-59); Bilirubin,Total 0.7 mg/dL (0.2-1.3); Blood Urea Nitrogen 10 mg/dL (9-20); Carbon Dioxide 28 mmol/L (22-30); Chloride 98 mmol/L (98-107); Estimated CRCL calculation 108 ml/min; Estimated Glomerular Filt Rate > 60; Glucose 108 mg/dL (65-110); Potassium 4.1 mmol/L (3.4-5.0); Sodium 136 mmol/L (137-145)
[2021-10-20 15:12] LABS: INR 0.9; Prothrombin Time 12.5 Seconds (11.1-14.7)
[2021-10-20 15:13] LABS: Ethanol < 10 mg/dL (<10)
[2021-10-20] MEDS: LORazepam INJ (*CRX) 2 MG/ML VIAL 1 MG IV PUSH ×2 (15:41→16:22)
--- NOTE | 2021-10-20 15:47 | PC.NURSE ---
Pharmacy making banana bag at this time.
[2021-10-20 15:57] LABS: Add Urine Microscopic? YES; Appearance Urine Clear (Clear); Bilirubin Urine Negative (Negative); Blood Urine Negative (Negative); Color Urine Yellow (Yellow); Glucose Urine UA Negative (Negative); Ketones Urine Negative (Negative); Leukocyte Esterase Ur Negative LEU/UL (Negative); Mucus Urine Few /lpf; Nitrate Urine Negative (Negative); Protein Urine 1+ mg/dL (Negative); RBC Urine 0-2 /hpf (0-2); Squamous Epithelial Cell Urine Occasional /hpf (Few); Urobilinogen Urine Negative mg/dL (<2.0); WBC Urine 0-3 /hpf
[2021-10-20 16:13] LABS: Amphetamine Screen Urine Negative (Negative); Barbiturate Screen Urine Negative (Negative); Benzodiazepines Screen Urine Positive (Negative); Cannabinoid Screen Urine Positive (Negative); Cocaine Screen Urine Negative (Negative); Methadone Screen Urine Negative (Negative); Opiate Screen Urine Positive (Negative); Phencyclidine Screen Urine Negative (Negative)
--- NOTE | 2021-10-20 16:17 | PC.NURSE ---
Pt remains jittery, feeling anxious and nauseous. MD aware, verbal order for an additional 1 MG of IV ativan.
[2021-10-20] MEDS: THIAMINE HCL INJ 100 MG, FOLIC ACID INJ 1 MG, MULTIVITAMINS-12 INJ VIAL 1 5 ML, MULTIVI... 1000 MG IV CONT (16:55)
[2021-10-20] MEDS: SODIUM CHLORIDE 0.9% IV 1,000 ML 150 ML IV CONT (18:30)
--- NOTE | 2021-10-20 19:18 | PM.IMHP ---
H&P: HPI History of Present Illness Date/Time: 10/20/21 1800 this is a 26-year-old male patient who has been drinking heavily since he was 20 years old. The patient stated he has tried to quit several times and was unable to do it on his own. The patient has not drink any beers since yesterday at 5:00 a.m.. The patient states that he drinks 20 beers and a pt of jagermeister every day. The patient stated that he wanted to quit so he just quit cold turkey. The patient's urine drug screen was positive for benzodiazepines, marijuana, and opiates. Initially the patient denied the marijuana and he admitted to taking Vicodin at times. Then when I told him that he was positive for marijuana he admitted that he has been using marijuana as well. The patient has no other past medical history. The patient has tremulous hands. He denies any fever chills or any abdominal pain or any back pain. No complaints of any chest pain. The patient is slow to respond. He reported that he has higher level spectrum of autism. White count is 10.7. Sodium 136. The patient was given thiamin, Ativan,, and IV fluids in the emergency room.The patient is being admitted to observation status on the date of service of 10/20/2021. Chief Complaint: Alcohol withdrawal Review of Systems Review of Systems: All systems reviewed & are unremarkable except as noted in HPI and below Constitutional: Constitutional: Reports as per HPI and Reports no additional constitutional complaints Eyes: Eyes: Reports as per HPI and Reports no additional eye complaints ENT: Reports system reviewed and no additional complaints, except as documented and Reports Normal hearing present Cardiovascular: Cardiovascular: Reports no additional cardiovascular complaints Respiratory: Respiratory: Reports no additional respiratory complaints and Reports no additional respiratory complaints Gastrointestinal: Gastrointestinal: Reports as per HPI and Reports no additional gastrointestinal complaints Musculoskeletal: Musculoskeletal: Reports no additional musculoskeletal complaints Integumentary/Breasts: Skin/Breast: Reports system reviewed and no additional complaints, except as docu and Reports as per HPI Neurologic: Reports system reviewed and no additional complaints, except as documented, Reports as per HPI and Reports Normal hearing present Psychiatric: Psychiatric: Reports no additional psychiatric complaints and Reports as per HPI Endocrine: Endocrine: Reports no additional endocrine complaints Hematologic/Lymphatic: Hematologic/Lymphatic: Reports no additional hematologic/lymphatic complaints Allergic/Immunologic: Allergic/Immunologic: Reports no additional allergic/immunologic complaints PMFSH Past Medical History Medical History ADHD Alcohol abuse Anxiety Asperger's disorder 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 Depression Surgical History Surgical History H/O cataract extraction left eye . Patient stated he had a cataract from being premature. Family History Family History Father Alcoholism Social History Social History (Updated 10/20/21 @ 19:50 by Lois House NP) Social History: The patient lives with his grandmother. The patient does not have a durable power compliance attorney for healthcare. The patient is full code. Patient works for a [employer]. The patient states that he drinks anywhere from 20 beers a day. And a pt of yagermeister He does occasionally use marijuana. He is single does not have any children. He smokes 1/2 pack a cigarettes a day.. Smoking packs per day: 1 Smoking cigarettes per day: 20.0 Years smoked: 4 Smoking pack-years: 4.00 Smoking status: Current every day smoker Tobacco type: cigarettes Second hand tobacco smoke exposure: Yes Tut[place]
--- NOTE | 2021-10-20 20:08 | PC.NURSE ---
Spoke with grandmother with permission of patient. Gave update. Pt to be admitted at hospital.
[2021-10-20] MEDS: chlordiazePOXIDE (*CRX) 25 MG CAPSULE 50 MG PO (21:50)
[2021-10-20] MEDS: NICOTINE (*PBKC) 14 MG PATCH 1 PATCH TRANSDERM (21:52)
[2021-10-21] VITALS (10 sets, daily range): BP systolic 103–139; BP diastolic 66–87; PULSE 53–80; RESP 16–19; TEMP 36.2–37.2; O2SAT 97–100; BMI 27.7
[2021-10-21] MEDS: SODIUM CHLORIDE 0.9% IV 1,000 ML 150 ML IV CONT ×4 (00:40→20:29)
--- NOTE | 2021-10-21 02:47 | ADMGEN ---
This patient, Talat Villagomez II, was admitted to Medical Room 349-01. Patient/family oriented to hospital policies and general routines including ID bracelet, bed and alarms, visiting hours, pain management, procedures, bathroom and other care routines, personal items, smoking policy, room service/diet, and visiting hours. Information on how to activate the Rapid Response Team has been discussed. Patient/Family are encouraged to report perceived risks to care and to ask questions if they do not understand what they are told or what they should do.
[2021-10-21] MEDS: chlordiazePOXIDE (*CRX) 25 MG CAPSULE 50 MG PO (05:04)
[2021-10-21 05:24] LABS: Basophils Percent Auto 0.5 % (0.2-1.2); Eosinophils Absolute Auto 0.1 K/mm3 (0-0.3); Eosinophils Percent Auto 0.9 % (0-4.4); Hematocrit 41.8 % (42.0-52.0); Hemoglobin 13.9 g/dL (14.0-18.0); Immature Granulocyte Absolute 0.02 K/mm3 (0.00-0.031); Immature Granulocyte Percent A 0.3 % (0-0.5); Lymphocytes Absolute Auto 1.69 K/mm3 (0.9-3.2); Lymphocytes Percent Auto 25.4 % (18.3-44.2); Mean Corpuscular HGB Conc 33.3 g/dl (32-36); Mean Corpuscular Hemoglobin 32.9 pg (26-34); Mean Corpuscular Volume 99.1 fl (80-100); Mean Platelet Volume 9.9 fl (7.4-10.4); Monocytes Absolute Auto 0.9 K/mm3 (0.1-0.6); Monocytes Percent Auto 13.8 % (2.6-8.5); Neutrophils Absolute Auto 3.9 K/mm3 (1.3-6.7); Neutrophils Percent Auto 59.1 % (45.5-73.1); Platelet Count Result 182 k/mm3 (150-375); Red Blood Count 4.22 M/mm3 (4.6-6.20); Red Cell Distribution Width 13.5 % (11.5-14.5); White Blood Count 6.7 K/mm3 (4.5-10.0)
[2021-10-21 05:39] LABS: Lactic Acid Reflex 1.3 mmol/L (0.7-2.1)
[2021-10-21 05:45] LABS: Alanine Aminotransferase 39 U/L (4-50); Albumin Level 3.9 g/dL (3.5-5.1); Alkaline Phosphatase 75 U/L (38-126); Anion Gap 7 mmol/L (8-16); Aspartate Amino Transferase 53 U/L (17-59); Bilirubin,Total 0.7 mg/dL (0.2-1.3); Blood Urea Nitrogen 11 mg/dL (9-20); Carbon Dioxide 26 mmol/L (22-30); Chloride 104 mmol/L (98-107); Estimated CRCL calculation 98 ml/min; Estimated Glomerular Filt Rate > 60; Glucose 126 mg/dL (65-110); Lactate Dehydrogenase 518 U/L (313-618); Magnesium 2.1 mg/dL (1.6-2.3); Potassium 3.5 mmol/L (3.4-5.0); Sodium 137 mmol/L (137-145)
[2021-10-21] MEDS: KETOROLAC 15 MG/ML VIAL (*BKC) IV PUSH (05:46)
[2021-10-21] MEDS: CALCIUM CARBONATE (TUMS) 500 MG (200 MG ELEMENTAL) PO (05:47)
[2021-10-21 07:57] LABS: Free T4 Free Thyroxine Reflex 0.89 ng/dL (0.78-2.19)
[2021-10-21 09:08] LABS: Total Triiodothyronine (T3) 1.53 NG/ML (0.97-1.69)
[2021-10-21] MEDS: THIAMINE HCL 50 MG TABLET PO (11:14)
[2021-10-21] MEDS: FOLIC ACID 1 MG TABLET PO (11:14)
[2021-10-21] MEDS: THERAPEUTIC MULTIVITAMINS/MINERALS TAB (*BKC) 1 TABLET PO (11:14)
--- NOTE | 2021-10-21 13:12 | PM.IMPN ---
Progress Note: A&P Assessment and Plan (1) Alcohol withdrawal syndrome: Qualifiers: Complication of substance-induced condition: with unspecified complication Qualified Code(s): F10.239 - Alcohol dependence with withdrawal, unspecified Code(s): F10.239 - Alcohol dependence with withdrawal, unspecified Status: Acute Assessment and Plan: continue to monitor in hospital, [facility] P.r.n. Ativan. Routine Librium. Continue with folic acid and thiamin. The patient is currently getting a banana bag. (2) Polysubstance abuse: Code(s): F19.10 - Other psychoactive substance abuse, uncomplicated Status: Acute Assessment and Plan: Patient admitted to using marijuana and Vicodin. (3) Anxiety: Code(s): F41.9 - Anxiety disorder, unspecified Status: Acute Assessment and Plan: The patient has p.r.n. Ativan at this time. The patient may benefit from an SSRI. (4) Transaminitis: Code(s): R74.01 - Elevation of levels of liver transaminase levels Status: Acute Assessment and Plan: Continue to monitor. Most likely related to the alcohol abuse (5) Tobacco dependence: Code(s): F17.200 - Nicotine dependence, unspecified, uncomplicated Status: Chronic Assessment and Plan: Smoking cessation advised Subjective Date/time seen: 10/21/21 13:12 Interval history: 26-year-old male patient who has been drinking heavily since he was 20 years old. The patient stated he has tried to quit several times and was unable to do it on his own. Pt is a heavy drinker drinks 20 beers per day. Pt appears tremulous today. Review of Systems Review of Systems: All systems reviewed & are unremarkable except as noted in HPI and below Exam Const: General: cooperative and healthy appearing; No in distress Nutritional Appearance: overweight Orientation/consciousness: oriented to person HENMT: Head: normal to inspection Resp: Effort & Inspection: no respiratory distress Auscultation: no rhonchi and no wheezes Cardio: Rate: regular rate Rhythm: regular rhythm GI: Inspection: normal to inspection GI Palp: No abdominal tenderness, No Guarding due to palpation present (GI) and No Hepatomegaly present Auscultation: normal bowel sounds Neuro: General: oriented to person Objective Data Vital Signs Vital Signs: Vital Signs - 24 hr 10/20/21 14:21 10/20/21 15:12 12/19/21 15:15 Temperature 36.8 C Pulse Rate 91 68 73 Pulse Rate [Monitor] Respiratory Rate 18 17 15 Blood Pressure 149/98 H 136/92 H Pulse Oximetry 10/20/21 15:18 10/20/21 15:20 10/20/21 15:30 Temperature Pulse Rate 81 71 80 Pulse Rate [Monitor] Respiratory Rate 19 19 17 Blood Pressure Pulse Oximetry 10/20/21 15:31 10/20/21 15:45 10/20/21 15:48 Temperature Pulse Rate 80 75 82 Pulse Rate [Monitor] Respiratory Rate 16 15 21 H Blood Pressure Pulse Oximetry 10/20/21 16:00 10/20/21 16:01 10/20/21 16:02 Temperature Pulse Rate 75 84 76 Pulse Rate [Monitor] Respiratory Rate 25 H 19 14 Blood Pressure 134/82 Pulse Oximetry 98 99 97 10/20/21 16:19 10/20/21 16:30 10/20/21 16:31 Temperature Pulse Rate 72 79 76 Pulse Rate [Monitor] Respiratory Rate 14 18 16 Blood Pressure 131/88 Pulse Oximetry 96 95 98 10/20/21 16:51 10/20/21 16:55 10/20/21 17:00 Temperature Pulse Rate 77 74 68 Pulse Rate [Monitor] Respiratory Rate 21 H 20 14 Blood Pressure 113/97 H Pulse Oximetry 98 99 96 10/20/21 17:01 10/20/21 17:02 10/20/21 17:26 Temperature Pulse Rate 68 65 82 Pulse Rate [Monitor] Respiratory Rate 23 H 15 17 Blood Pressure 122/82 Pulse Oximetry 98 97 10/20/21 17:30 10/20/21 17:31 10/20/21 17:45 Temperature Pulse Rate 89 82 78 Pulse Rate [Monitor] Respiratory Rate 17 17 21 H Blood Pressure 128/82 Pulse Oximetry 91 100 100 10/20/21 17:46 10/20/21 18:10 10/20/21 18:15 Temperature
[2021-10-21] MEDS: chlordiazePOXIDE (*CRX) 25 MG CAPSULE 75 MG PO ×2 (13:59→21:42)
[2021-10-21] MEDS: LORazepam (*CRX) 1 MG TABLET PO (14:01)
[2021-10-22] MEDS: SODIUM CHLORIDE 0.9% IV 1,000 ML 150 ML IV CONT (03:22)
[2021-10-22 04:00] VITALS: BP 134/87; PULSE 60
[2021-10-22] MEDS: chlordiazePOXIDE (*CRX) 25 MG CAPSULE 75 MG PO ×3 (05:48→22:15)
[2021-10-22 06:00] VITALS: BP 126/90; PULSE 74; RESP 16; TEMP 36.6; O2SAT 98
[2021-10-22] MEDS: THERAPEUTIC MULTIVITAMINS/MINERALS TAB (*BKC) 1 TABLET PO (08:27)
[2021-10-22] MEDS: FOLIC ACID 1 MG TABLET PO (08:27)
[2021-10-22] MEDS: THIAMINE HCL 50 MG TABLET PO (08:27)
[2021-10-22] MEDS: LORazepam (*CRX) 1 MG TABLET PO ×2 (09:43→22:16)
--- NOTE | 2021-10-22 11:39 | PM.IMPN ---
Progress Note: A&P Assessment and Plan (1) Alcohol withdrawal syndrome: Qualifiers: Complication of substance-induced condition: with unspecified complication Qualified Code(s): F10.239 - Alcohol dependence with withdrawal, unspecified Code(s): F10.239 - Alcohol dependence with withdrawal, unspecified Status: Acute Assessment and Plan: continue to monitor in hospital, [facility] P.r.n. Ativan. Routine Librium. Continue with folic acid and thiamin. Pt tolerating a diet now (2) Polysubstance abuse: Code(s): F19.10 - Other psychoactive substance abuse, uncomplicated Status: Acute Assessment and Plan: Patient admitted to using marijuana and Vicodin. (3) Anxiety: Code(s): F41.9 - Anxiety disorder, unspecified Status: Acute Assessment and Plan: The patient has p.r.n. Ativan at this time. The patient may benefit from an SSRI. (4) Transaminitis: Code(s): R74.01 - Elevation of levels of liver transaminase levels Status: Acute Assessment and Plan: Continue to monitor. Most likely related to the alcohol abuse (5) Tobacco dependence: Code(s): F17.200 - Nicotine dependence, unspecified, uncomplicated Status: Chronic Assessment and Plan: Smoking cessation advised Subjective Date/time seen: 10/22/21 11:39 Interval history: 26-year-old male patient who has been drinking heavily since he was 20 years old. The patient stated he has tried to quit several times and was unable to do it on his own. Pt is a heavy drinker drinks 20 beers per day. Pt appears tremulous today. Review of Systems Review of Systems: All systems reviewed & are unremarkable except as noted in HPI and below Exam Const: General: cooperative and healthy appearing; No in distress Orientation/consciousness: oriented to person HENMT: Head: normal to inspection Resp: Effort & Inspection: no respiratory distress Auscultation: no rhonchi and no wheezes Cardio: Rate: regular rate Rhythm: regular rhythm GI: Inspection: normal to inspection Auscultation: normal bowel sounds Neuro: General: oriented to person Objective Data Vital Signs Vital Signs: Vital Signs - 24 hr 10/21/21 12:00 10/21/21 14:13 10/21/21 16:33 Temperature 36.9 C Pulse Rate 53 L Pulse Rate [Monitor] 76 60 Respiratory Rate 16 Blood Pressure 106/66 139/80 139/80 Pulse Oximetry 98 10/21/21 20:00 10/21/21 21:39 10/22/21 04:00 Temperature 37.2 C Pulse Rate 58 L 58 L Pulse Rate [Monitor] 60 60 Respiratory Rate 16 16 Blood Pressure 134/87 134/87 134/87 Pulse Oximetry 100 100 10/22/21 06:00 Temperature 36.6 C Pulse Rate 74 Pulse Rate [Monitor] Respiratory Rate 16 Blood Pressure 126/90 Pulse Oximetry 98 Intake/Output Intake/Output: Intake & Output 10/19/21 10/20/21 10/21/21 10/22/21 23:59 23:59 23:59 23:59 Intake Total 1013.2 5425 1960 Output Total 1050 1875 Balance 1013.2 4375 85 Meds/Results Medications: Active Medications Generic Name Dose Route Start Last Admin Trade Name Freq PRN Reason Stop Dose Admin Calcium Carbonate 200 mg 10/21/21 05:37 10/21/21 05:47 Calcium Carbonate (Tums) 500 Mg (200 Mg Elemental) PO 200 mg Q6H PRN Administration Indigestion Chlordiazepoxide HCl 75 mg 10/21/21 14:00 10/22/21 05:48 Chlordiazepoxide (*Crx) 25 Mg Capsule PO 75 mg Q8HR MALOU Administration Folic Acid 1 mg 10/21/21 09:00 10/22/21 08:27 Folic Acid 1 Mg Tablet PO 1 mg DAILY MALOU Administration Lorazepam 1 mg 10/20/21 17:40 10/22/21 09:43 Lorazepam (*Crx) 1 Mg Tablet PO 1 mg Q4H PRN Administration Agitation Multivitamins/Calcium 1 tablet 10/21/21 09:00 10/22/21 08:27 Therapeutic Multivitamins/Minerals Tab (*Bkc) PO 1 tablet QAM MALOU Administration Nicotine 1 patch 10/20/21 21:00 10/22/21 08:27 Nicotine (*Pbkc) 14 Mg Patch TRANSDERM Not Given QAM MALOU Ondansetron H
[2021-10-22 14:00] VITALS: BP 117/82; PULSE 75; RESP 16; TEMP 36.4; O2SAT 99
[2021-10-22 20:00] VITALS: BP 117/82; PULSE 60; PULSE 75; RESP 16; O2SAT 99
[2021-10-22 22:00] VITALS: BP 138/98; PULSE 63; RESP 16; TEMP 36.7; O2SAT 98
[2021-10-22] MEDS: NICOTINE (*PBKC) 14 MG PATCH 1 PATCH TRANSDERM (23:00)
[2021-10-23] VITALS: BP 138/98; PULSE 60
[2021-10-23 04:00] VITALS: BP 138/98; PULSE 60
[2021-10-23] MEDS: chlordiazePOXIDE (*CRX) 25 MG CAPSULE 75 MG PO ×3 (05:00→22:00)
[2021-10-23 06:00] VITALS: BP 119/89; PULSE 100; RESP 18; TEMP 36; O2SAT 99
[2021-10-23] MEDS: THIAMINE HCL 50 MG TABLET PO (09:07)
[2021-10-23] MEDS: FOLIC ACID 1 MG TABLET PO (09:07)
[2021-10-23] MEDS: THERAPEUTIC MULTIVITAMINS/MINERALS TAB (*BKC) 1 TABLET PO (09:07)
--- NOTE | 2021-10-23 13:12 | PM.IMPN ---
Progress Note: A&P Assessment and Plan (1) Alcohol withdrawal syndrome: Qualifiers: Complication of substance-induced condition: with unspecified complication Qualified Code(s): F10.239 - Alcohol dependence with withdrawal, unspecified Code(s): F10.239 - Alcohol dependence with withdrawal, unspecified Status: Acute Assessment and Plan: Continue ciwa-->4-7 last 24 hours Continue P.r.n. Ativan Continue routine Librium Continue with folic acid and thiamine Encourage po intake Would benefit from inpatient rehab at d/c (2) Polysubstance abuse: Code(s): F19.10 - Other psychoactive substance abuse, uncomplicated Status: Acute Assessment and Plan: Patient admitted to using marijuana and Vicodin Would benefit from inpatient rehab at d/c (3) Anxiety: Code(s): F41.9 - Anxiety disorder, unspecified Status: Acute Assessment and Plan: Continue p.r.n. Ativan at this time. R/o GRACE, Patient may benefit from an SSRI. (4) Transaminitis: Code(s): R74.01 - Elevation of levels of liver transaminase levels Status: Acute Assessment and Plan: AST/ALT trended down Most likely related to the alcohol abuse (5) Tobacco dependence: Code(s): F17.200 - Nicotine dependence, unspecified, uncomplicated Status: Chronic Assessment and Plan: Smoking cessation advised Nicotine patch Additional Plan Code status: FULL Disposition: d/c home tomorrow if CIWA <4 Subjective Date/time seen: 10/23/21 13:12 Interval history: 26-year-old male patient who has been drinking heavily since he was 20 years old. The patient stated he has tried to quit several times and was unable to do it on his own. Pt is a heavy drinker drinks 20 beers per day. Pt appears tremulous today. Review of Systems Review of Systems: All systems reviewed & are unremarkable except as noted in HPI and below Exam Const: General: no acute distress, alert and awake Orientation/consciousness: patient oriented x3 HENMT: Head: normocephalic and atraumatic Ears: hearing grossly normal bilaterally and external ears normal Face and sinus: face symmetric Mouth: Yes Normal oral and palatal mucosa present Eyes: EOM: EOMs intact bilaterally Neck: Neck: full ROM, trachea midline and no JVD Chest: Chest palpation & inspection: normal inspection of the chest Resp: Effort & Inspection: normal respiratory effort Auscultation: clear to auscultation bilaterally Cardio: Jugular venous distension: no JVD Rate: regular rate Rhythm: regular rhythm Heart sounds: S1 normal heart sound present and S2 normal heart sound present GI: GI Palp: Yes Soft to palpation Auscultation: normal bowel sounds : General: Yes no CVA tenderness Back/Spine/Pelvis: Back: no CVA tenderness Skin: General skin exam: normal color Rashes: no rashes Neuro: General: patient oriented x3 and no focal motor deficits Speech: normal speech Motor exam (neuro): Tremors during motor activity present Extrem: General: no clubbing, cyanosis or edema Psych: Affect: Anxious affect present Attitude: cooperative Judgement: Good judgement present (Psych) and Fair judgement present (Psych) Objective Data Vital Signs Vital Signs: Vital Signs - 24 hr 10/22/21 14:00 10/22/21 20:00 10/22/21 22:00 Temperature 36.4 C L 36.7 C Pulse Rate 75 75 63 Pulse Rate [Monitor] 60 Respiratory Rate 16 16 16 Blood Pressure 117/82 117/82 138/98 H Pulse Oximetry 99 99 98 10/23/21 00:00 10/23/21 04:00 10/23/21 06:00 Temperature 36.0 C L Pulse Rate 100 Pulse Rate [Monitor] 60 60 Respiratory Rate 18 Blood Pressure 138/98 H 138/98 H 119/89 Pulse Oximetry 99 Intake/Output Intake/Output: Intake & Output 10/20/21 10/21/21 10/22/21 10/23/21 23:59 23:59 23:59 23:59 Intake Total 1013.2 5425 3440 930 Output Total 1050 1875 0 Balance 1013.2 4375 1565 930 Meds/Results Medications: Active Medications G
[2021-10-23 14:25] VITALS: BP 123/84; PULSE 105; RESP 16; TEMP 36.1; O2SAT 98
[2021-10-23 19:45] VITALS: BP 117/84; PULSE 96; RESP 14; TEMP 35.9; O2SAT 98
[2021-10-23 20:00] VITALS: BP 117/84; PULSE 60; PULSE 96; RESP 14; O2SAT 98
[2021-10-23] MEDS: LORazepam (*CRX) 1 MG TABLET PO (22:00)
[2021-10-23] MEDS: NICOTINE (*PBKC) 14 MG PATCH 1 PATCH TRANSDERM (22:00)
[2021-10-24] VITALS: BP 117/84; PULSE 96
[2021-10-24 04:00] VITALS: BP 117/84; PULSE 96
[2021-10-24] MEDS: chlordiazePOXIDE (*CRX) 25 MG CAPSULE 75 MG PO (05:32)
[2021-10-24 06:36] LABS: Alanine Aminotransferase 60 U/L (4-50); Albumin Level 4.6 g/dL (3.5-5.1); Alkaline Phosphatase 87 U/L (38-126); Anion Gap 9 mmol/L (8-16); Aspartate Amino Transferase 49 U/L (17-59); Bilirubin,Total 0.4 mg/dL (0.2-1.3); Blood Urea Nitrogen 16 mg/dL (9-20); Calcium 9.4 mg/dL (8.4-10.2); Carbon Dioxide 25 mmol/L (22-30); Chloride 102 mmol/L (98-107); Estimated CRCL calculation 90 ml/min; Estimated Glomerular Filt Rate > 60; Glucose 108 mg/dL (65-110); Sodium 136 mmol/L (137-145)
[2021-10-24 06:38] LABS: Hematocrit 47.2 % (42.0-52.0); Hemoglobin 15.7 g/dL (14.0-18.0); Mean Corpuscular HGB Conc 33.3 g/dl (32-36); Mean Corpuscular Hemoglobin 32.2 pg (26-34); Mean Corpuscular Volume 96.7 fl (80-100); Mean Platelet Volume 10.9 fl (7.4-10.4); Platelet Count Result 171 k/mm3 (150-375); Red Blood Count 4.88 M/mm3 (4.6-6.20); Red Cell Distribution Width 13.2 % (11.5-14.5); White Blood Count 7.6 K/mm3 (4.5-10.0)
[2021-10-24 06:40] VITALS: BP 116/81; PULSE 100; RESP 12; TEMP 35.5; O2SAT 97
[2021-10-24] MEDS: THERAPEUTIC MULTIVITAMINS/MINERALS TAB (*BKC) 1 TABLET PO (09:14)
[2021-10-24] MEDS: THIAMINE HCL 50 MG TABLET PO (09:14)
[2021-10-24] MEDS: FOLIC ACID 1 MG TABLET PO (09:14)
[2021-10-24 14:00] VITALS: BP 116/96; PULSE 96; RESP 20; TEMP 36.3; O2SAT 98
[2021-10-24] MEDS: chlordiazePOXIDE (*CRX) 25 MG CAPSULE 50 MG PO ×2 (14:07→21:10)
--- NOTE | 2021-10-24 16:28 | PM.IMPN ---
Progress Note: A&P Assessment and Plan (1) Alcohol withdrawal syndrome: Qualifiers: Complication of substance-induced condition: with unspecified complication Qualified Code(s): F10.239 - Alcohol dependence with withdrawal, unspecified Code(s): F10.239 - Alcohol dependence with withdrawal, unspecified Status: Acute Assessment and Plan: Continue ciwa-->4-7 last 24 hours Continue P.r.n. Ativan Continue routine Librium Continue with folic acid and thiamine Encourage po intake Would benefit from inpatient rehab at d/c 10/24/2021 today patient remains clinically stable not as tremulous, his CIWA protocol is trending down, will taper Librium to 50 mg q.8h as needed from 75 mg q.8 will have a PT OT evaluate the patient will continue to monitor. (2) Polysubstance abuse: Code(s): F19.10 - Other psychoactive substance abuse, uncomplicated Status: Acute Assessment and Plan: Patient admitted to using marijuana and Vicodin Would benefit from inpatient rehab at d/c (3) Anxiety: Code(s): F41.9 - Anxiety disorder, unspecified Status: Acute Assessment and Plan: Continue p.r.n. Ativan at this time. R/o GRACE, Patient may benefit from an SSRI. (4) Transaminitis: Code(s): R74.01 - Elevation of levels of liver transaminase levels Status: Acute Assessment and Plan: AST/ALT trended down Most likely related to the alcohol abuse (5) Tobacco dependence: Code(s): F17.200 - Nicotine dependence, unspecified, uncomplicated Status: Chronic Assessment and Plan: Smoking cessation advised Nicotine patch Additional Plan Code status: FULL Disposition: d/c home tomorrow if CIWA <4 Subjective Date/time seen: 10/24/21 16:28 Interval history: 26-year-old male patient who has been drinking heavily since he was 20 years old. The patient stated he has tried to quit several times and was unable to do it on his own. Pt is a heavy drinker drinks 20 beers per day. Pt appears tremulous today. 10/24/2021 today patient remains clinically stable not as tremulous, his CIWA protocol is trending down, will taper Librium to 50 mg q.8h as needed from 75 mg q.8 will have a PT OT evaluate the patient will continue to monitor. Review of Systems Review of Systems: All systems reviewed & are unremarkable except as noted in HPI and below Exam Narrative: appears chronically Patient is comfortable, NAD HEENT: eyes are clear and none icteric LUNGS: normal respiratory effort ABD: not distant Lower extremities: no edema SKIN: nonjaundiced Neuro: grossly intact. Objective Data Vital Signs Vital Signs: Vital Signs - 24 hr 10/23/21 19:45 10/23/21 20:00 10/24/21 00:00 Temperature 96.7 F L Pulse Rate 96 96 Pulse Rate [Monitor] 60 96 Respiratory Rate 14 14 Blood Pressure 117/84 117/84 117/84 Pulse Oximetry 98 98 10/24/21 04:00 10/24/21 06:40 10/24/21 14:00 Temperature 96 F L 97.4 F L Pulse Rate 100 96 Pulse Rate [Monitor] 96 Respiratory Rate 12 20 Blood Pressure 117/84 116/81 116/96 H Pulse Oximetry 97 98 Intake/Output Intake/Output: Intake & Output 10/21/21 10/22/21 10/23/21 10/24/21 23:59 23:59 23:59 23:59 Intake Total 5425 3440 1920 960 Output Total 1050 1875 0 Balance 4375 1565 1920 960 Meds/Results Medications: Active Medications Generic Name Dose Route Start Last Admin Trade Name Freq PRN Reason Stop Dose Admin Calcium Carbonate 200 mg 10/21/21 05:37 10/21/21 05:47 Calcium Carbonate (Tums) 500 Mg (200 Mg Elemental) PO 200 mg Q6H PRN Administration Indigestion Chlordiazepoxide HCl 50 mg 10/24/21 13:00 10/24/21 14:07 Chlordiazepoxide (*Crx) 25 Mg Capsule PO 50 mg Q8H PRN Administration Anxiety Folic Acid 1 mg 10/21/21 09:00 10/24/21 09:14 Folic Acid 1 Mg Tablet PO 1 mg DAILY MALOU Administration Lorazepam 1 mg 10/20/21 17:40 10/23/21 22:00 Lorazepam (
[2021-10-24] MEDS: NICOTINE (*PBKC) 14 MG PATCH 1 PATCH TRANSDERM (20:43)
[2021-10-24 20:45] VITALS: PULSE 90
[2021-10-24 21:34] VITALS: BP 114/75; PULSE 86; RESP 16; TEMP 36.6; O2SAT 97
[2021-10-25] VITALS: PULSE 88
[2021-10-25 04:00] VITALS: PULSE 94
[2021-10-25 05:20] VITALS: BP 100/70; PULSE 96; RESP 16; TEMP 36.1; O2SAT 98
[2021-10-25 06:58] LABS: Hematocrit 45.5 % (42.0-52.0); Hemoglobin 15.2 g/dL (14.0-18.0); Mean Corpuscular HGB Conc 33.4 g/dl (32-36); Mean Corpuscular Hemoglobin 32.3 pg (26-34); Mean Corpuscular Volume 96.6 fl (80-100); Platelet Count Result 176 k/mm3 (150-375); Red Blood Count 4.71 M/mm3 (4.6-6.20); Red Cell Distribution Width 13.2 % (11.5-14.5); White Blood Count 7.6 K/mm3 (4.5-10.0)
[2021-10-25] MEDS: THIAMINE HCL 50 MG TABLET PO (08:00)
[2021-10-25] MEDS: FOLIC ACID 1 MG TABLET PO (08:00)
[2021-10-25] MEDS: THERAPEUTIC MULTIVITAMINS/MINERALS TAB (*BKC) 1 TABLET PO (08:00)
[2021-10-25 08:04] LABS: Alanine Aminotransferase 60 U/L (4-50); Albumin Level 4.5 g/dL (3.5-5.1); Alkaline Phosphatase 89 U/L (38-126); Anion Gap 10 mmol/L (8-16); Aspartate Amino Transferase 47 U/L (17-59); Bilirubin,Total 0.3 mg/dL (0.2-1.3); Blood Urea Nitrogen 14 mg/dL (9-20); Calcium 9.4 mg/dL (8.4-10.2); Carbon Dioxide 25 mmol/L (22-30); Chloride 103 mmol/L (98-107); Estimated CRCL calculation 90 ml/min; Estimated Glomerular Filt Rate > 60; Glucose 110 mg/dL (65-110); Magnesium 1.9 mg/dL (1.6-2.3); Potassium 4.3 mmol/L (3.4-5.0); Sodium 138 mmol/L (137-145)
--- NOTE | 2021-10-25 09:36 | PM.DS ---
DS: Admitting Diagnosis Discharge Date 10/25/2021 Admitting Diagnosis alcohol withdrawal DS: Discharge Diagnosis Discharge Diagnosis (1) Alcohol withdrawal syndrome: Qualifiers: Complication of substance-induced condition: with unspecified complication Qualified Code(s): F10.239 - Alcohol dependence with withdrawal, unspecified Code(s): F10.239 - Alcohol dependence with withdrawal, unspecified Status: Acute Assessment and Plan: Continue ciwa-->4-7 last 24 hours Continue P.r.n. Ativan Continue routine Librium Continue with folic acid and thiamine Encourage po intake Would benefit from inpatient rehab at d/c 10/24/2021 today patient remains clinically stable not as tremulous, his CIWA protocol is trending down, will taper Librium to 50 mg q.8h as needed from 75 mg q.8 will have a PT OT evaluate the patient will continue to monitor. (2) Polysubstance abuse: Code(s): F19.10 - Other psychoactive substance abuse, uncomplicated Status: Acute Assessment and Plan: Patient admitted to using marijuana and Vicodin Would benefit from inpatient rehab at d/c (3) Anxiety: Code(s): F41.9 - Anxiety disorder, unspecified Status: Acute Assessment and Plan: Continue p.r.n. Ativan at this time. R/o GRACE, Patient may benefit from an SSRI. (4) Transaminitis: Code(s): R74.01 - Elevation of levels of liver transaminase levels Status: Acute Assessment and Plan: AST/ALT trended down Most likely related to the alcohol abuse (5) Tobacco dependence: Code(s): F17.200 - Nicotine dependence, unspecified, uncomplicated Status: Chronic Assessment and Plan: Smoking cessation advised Nicotine patch DS: Summary Hospital Course Reason for hospitalization: this is a 26-year-old male patient who has been drinking heavily since he was 20 years old. The patient stated he has tried to quit several times and was unable to do it on his own. The patient has not drink any beers since yesterday at 5:00 a.m.. The patient states that he drinks 20 beers and a pt of jagermeister every day. The patient stated that he wanted to quit so he just quit cold turkey. The patient's urine drug screen was positive for benzodiazepines, marijuana, and opiates. Initially the patient denied the marijuana and he admitted to taking Vicodin at times. Then when I told him that he was positive for marijuana he admitted that he has been using marijuana as well. The patient has no other past medical history. The patient has tremulous hands. He denies any fever chills or any abdominal pain or any back pain. No complaints of any chest pain. The patient is slow to respond. He reported that he has higher level spectrum of autism. White count is 10.7. Sodium 136. The patient was given thiamin, Ativan,, and IV fluids in the emergency room.The patient is being admitted to observation status on the date of service of 10/20/2021. Chief Complaint: Alcohol withdrawal Hospital Course: Continue ciwa-->4-7 last 24 hours Continue P.r.n. Ativan Continue routine Librium Continue with folic acid and thiamine Encourage po intake Would benefit from inpatient rehab at d/c 10/24/2021 today patient remains clinically stable not as tremulous, his CIWA protocol is trending down, will taper Librium to 50 mg q.8h as needed from 75 mg q.8 will have a PT OT evaluate the patient will continue to monitor. Today patient clinically stable he is not as tremulous and able to ambulate without any difficulty will discharge the patient home today. Status at Discharge Functional status at discharge: independent ambulation Overall status at discharge: patient is back to baseline Time Spent with Patient Time attestation: Total time spent providing and/or coordinating discharge services: Time spent: Greater than 30 minutes Exam Narrative: appears chronically Patient is comfortable, NAD HEENT: eyes are clear
== END 2021-10-25 09:50 | disposition home or self-care (01) | DRG 897 ==
LOC: ANHED 17:30 → ANH2MED 19:49 → ANH3MED 10-21 01:56
PROVIDERS: Nurse Practitioner; Nurse Practitioner Adult Health; Admitting Provider Hospitalist; Emergency Provider Emergency Medicine; Visit Provider Family Medicine
DX: F10.239 Alcohol dependence with withdrawal, unspecified (principal); F84.5 Asperger's syndrome; Y90.1 Blood alcohol level of 20-39 mg/100 ml; F90.9 Attention-deficit hyperactivity disorder, unspecified type; F32.A Depression, unspecified; F17.210 Nicotine dependence, cigarettes, uncomplicated; F12.10 Cannabis abuse, uncomplicated; F11.10 Opioid abuse, uncomplicated; R74.01 Elevation of levels of liver transaminase levels; F41.1 Generalized anxiety disorder
CPT/HCPCS: 36415; 80053; 80307; 81001; 82728; 83605; 83615; 83735; 84439; 84443; 84480; 85025; 85027; 85610; 93005; 96360; 96361; 96365; 96374; 96375; 96376; 97161; 99285; A9270; G0378; J1885; J2060; J3411; J3475; J7030

== ENCOUNTER 2024-02-13 13:54 | Emergency (ER) | payer MEDICARE, SELFPAY ==
[2024-02-13 14:05] VITALS: BP 112/71; PULSE 85; RESP 18; TEMP 36.1; O2SAT 100
--- NOTE | 2024-02-13 14:15 | ED.EPISTAXIS ---
HPI - Epistaxis General Chief complaint: Epistaxis Stated complaint: Nose Bleeding Time Seen by Provider: 02/13/24 14:15 Source: patient, RN notes reviewed and old records reviewed Mode of arrival: ambulatory Limitations: no limitations History of Present Illness HPI Narrative: 28 year old male presents to [facility] care with complaints of episodes of nose bleeding for the past 3 days. Patient reports that he had nose bleed today from left nares and he was able to get it to stop after holding pressure to the bridge of his nose for 15 minutes. No present nasal bleeding noted. Patient denies any substance us no marijuana, cocaine, heroin or any opiates, Patient reports he quit tobacco products one year ago and also quit alcohol use one year ago. MD complaint: epistaxis (episodes of nose bleeding not presently bleeding.) Location: left nostril Onset (ago): day(s) (3 days intermittent nose bleeding) Treatment prior to arrival: nose pinching and stuffed nose with tissue Related Data Allergies Allergy/AdvReac Type Severity Reaction Status Date / Time No Known Allergies Allergy Verified 02/13/24 13:56 Review of Systems Review of Systems: CONSTITUTIONAL: Denies malaise, chills, sweats, or fever. EYES: Denies visual changes, redness, or discharge. ENT: Reports rhinorrhea, congestion, episodes of nose bleeds left nare, no otalgia and no sore throat. CARDIOVASCULAR: Denies chest pain, palpitations, or edema. RESPIRATORY: Reports cough.? Denies dyspnea. GASTROINTESTINAL: Denies abdominal pain, nausea, vomiting, diarrhea SKIN: Denies rash or itching. MUSCULOSKELETAL: Denies myalgia. NEUROLOGIC: Denies headache. 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 Depression Schizophrenia Surgical History Surgical History H/O cataract extraction left eye . Patient stated he had a cataract from being premature. No pertinent past surgical history Family History Family History Mother Urinary tract infection Father History of cholecystectomy Father Alcoholism Social History Social History (Updated 02/14/24 @ 10:39 by Dahlia Nguyen NP) Social History: The patient lives with his grandmother. The patient does not have a durable power jigman for healthcare. The patient is full code. Patient works for a [employer]. The patient states that he drinks anywhere from 20 beers a day. And a pt of yagermeister He does occasionally use marijuana. He is single does not have any children. He smokes 1/2 pack a cigarettes a day.. 02/13/2024 He reports that he no longer uses any tobacco products, alcohol or any substance use Smoking packs per day: 1 Smoking cigarettes per day: 20.0 Years smoked: 6 Smoking pack-years: 6.00 Smoking status: Former smoker Tobacco type: cigarettes Second hand tobacco smoke exposure: Yes Smoking end date: 10/19/21 Additional smoking assessment comments: reports quit 1 year ago Alcohol intake: former Drinks per week: 7 Alcohol use details: reports that he quit alcohol use 1 year ago Substance use: former Substance use type: marijuana, crack/cocaine, heroin, opiates and painkillers Other substance usage details: CBD/THC Last use: Reports he no longer uses any substances Living arrangements: with family Additional living arrangements comments: Lives with grandma Occupation/Education: occupation Additional occupation/education comments: works in [employer] but currently is out of work Gender identity (if verbalized by the patient): Male Spiritual care concerns: No Agree to blood products: Ye
== END 2024-02-13 14:50 | disposition home or self-care (01) ==
PROVIDERS: Emergency Provider Registered Nurse
DX: R04.0 Epistaxis (principal); Z87.891 Personal history of nicotine dependence; F84.5 Asperger's syndrome; H54.62 Unqualified visual loss, left eye, normal vision right eye
CPT/HCPCS: 99213; G0463

== ENCOUNTER 2024-05-31 08:05 | Inpatient (IN) | payer MEDICARE, SELFPAY ==
[2024-05-31] VITALS (52 sets, daily range): BP systolic 87–122; BP diastolic 53–82; PULSE 92–105; RESP 15–27; TEMP 36.4–37.2; O2SAT 81–98; BMI 26.6
--- NOTE | ~2024-05-31 | CT_ITS ---
Non-contrast Head CT History: Altered mental status COMPARISON: 09/10/2020 Technique: Axial non-contrast imaging of the brain was performed. Dose reduction technique was used on this scan by utilizing automated exposure control and iterative reconstruction technique. The dose -length product (DLP) was 1210.67 mGy-cm. Findings: There is no evidence of intracranial hemorrhage, mass lesion, or acute infarct. Brain par enchyma appears normal. The ventricles and subarachnoid spaces are normal in size. The calvarium ap pears normal. The visualized paranasal sinuses and mastoid air cells are clear. Impression: No significant abnormality seen. Reviewed, dictated and finalized at location . Impression: No significant abnormality seen.
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
--- NOTE | 2024-05-31 08:22 | ED.GENADULT ---
HPI - General Adult General Chief complaint: Alcohol Stated complaint: face down in vomit Time Seen by Provider: 05/31/24 08:09 History of Present Illness HPI narrative: 29-year-old male brought in by EMS after being found unresponsive by his mother. Was found lying in a pile of his own vomit. Patient has a known history alcohol drug abuse. Patient responsive to pain when EMS arrived. Pupils pinpoint. Patient given to of intranasal Narcan EN route. In the ED the patient is actively vomiting. The patient states that he cannot see although he is tracking staff members around the room. Patient is not answering questions appropriately and continues to just say I can't see and different swear words. 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 Depression Schizophrenia Surgical History Surgical History H/O cataract extraction left eye . Patient stated he had a cataract from being premature. No pertinent past surgical history Family History Family History Mother Urinary tract infection Father History of cholecystectomy Father Alcoholism Social History Social History Social History: The patient lives with his grandmother. The patient does not have a durable power employee benefits attorney for healthcare. The patient is full code. Patient works for a [employer]. The patient states that he drinks anywhere from 20 beers a day. And a pt of yagerme[employer] He does occasionally use marijuana. He is single does not have any children. He smokes 1/2 pack a cigarettes a day.. 02/13/2024 He reports that he no longer uses any tobacco products, alcohol or any substance use Smoking packs per day: 1 Smoking cigarettes per day: 20.0 Years smoked: 6 Smoking pack-years: 6.00 Smoking status: Former smoker Tobacco type: cigarettes Second hand tobacco smoke exposure: Yes Smoking end date: 10/19/21 Additional smoking assessment comments: reports quit 1 year ago Alcohol intake: former Drinks per week: 7 Alcohol use details: reports that he quit alcohol use 1 year ago Substance use: former Substance use type: marijuana, crack/cocaine, heroin, opiates and painkillers Other substance usage details: CBD/THC Last use: Reports he no longer uses any substances Living arrangements: with family Additional living arrangements comments: Lives with grandma Occupation/Education: occupation Additional occupation/education comments: works in [employer] but currently is out of work Gender identity (if verbalized by the patient): Male Spiritual care concerns: No Agree to blood products: Yes Exam Narrative: APPEARANCE: Disheveled Head: atraumatic. EYES: EOMI, NOSE: Atraumatic NECK: Trachea midline RESPIRATORY, tachypneic clear lung sounds: CARDIOVASCULAR: RRR, tachycardic ABDOMINAL: Non-distended MUSCULOSKELETAl: No obvious deformities NEURO: Alert. Moving 4/4 extremities, not answer questions appropriately SKIN:: Warm, dry. Normal color PSYCHIATRIC: Normal affect Course Vital Signs Vital signs: Vital Signs Temperature 97.6 F 05/31/24 08:11 Pulse Rate 93 05/31/24 08:11 Respiratory Rate 20 05/31/24 08:11 Blood Pressure 110/75 05/31/24 08:11 Pulse Oximetry 95 05/31/24 08:11 Oxygen Delivery Room Air 05/31/24 08:11 Temperature 97.6 F 05/31/24 08:11 Pulse Rate 104 H 05/31/24 12:45 Respiratory Rate 24 H 05/31/24 11:31 Blood Pressure 119/71 05/31/24 12:31 Pulse Oximetry 90 05/31/24 12:45
[2024-05-31] MEDS: ONDANSETRON INJ 4 MG/2 ML VIAL IV PUSH ×2 (08:32→22:49)
[2024-05-31] MEDS: HALOPERIDOL LACTATE 5 MG/ML VIAL IM (08:32)
[2024-05-31] MEDS: SODIUM CHLORIDE 0.9% IV 1,000 ML 999 ML IV CONT ×2 (08:33→08:47)
[2024-05-31 08:42] LABS: Basophils Absolute Auto 0.1 K/mm3 (0.0-0.1); Basophils Percent Auto 0.4 % (0.2-1.2); Eosinophils Absolute Auto 0.1 K/mm3 (0-0.3); Eosinophils Percent Auto 0.5 % (0-4.4); Hematocrit 44.2 % (42.0-52.0); Hemoglobin 14.8 g/dL (14.0-18.0); Immature Granulocyte Absolute 0.21 K/mm3 (0.00-0.031); Immature Granulocyte Percent A 1.6 % (0-0.5); Lymphocytes Absolute Auto 2.05 K/mm3 (0.9-3.2); Lymphocytes Percent Auto 15.3 % (18.3-44.2); Mean Corpuscular HGB Conc 33.5 g/dl (32-36); Mean Corpuscular Hemoglobin 31.8 pg (26-34); Mean Corpuscular Volume 94.8 fl (80-100); Mean Platelet Volume 9.9 fl (7.4-10.4); Monocytes Absolute Auto 0.5 K/mm3 (0.1-0.6); Monocytes Percent Auto 3.8 % (2.6-8.5); Neutrophils Absolute Auto 10.5 K/mm3 (1.3-6.7); Neutrophils Percent Auto 78.4 % (45.5-73.1); Platelet Count Result 229 k/mm3 (150-375); Red Blood Count 4.66 M/mm3 (4.6-6.20); Red Cell Distribution Width 14.1 % (11.5-14.5); White Blood Count 13.4 K/mm3 (4.5-10.0)
[2024-05-31 08:44] LABS: HCO3 VBG 22.1 mEq/l (24.0-30.0); PCO2 VBG 45.3 mmHg (42.0-48.0); PO2 VBG 33.2 mmHg (35.0-45.0); pH VBG 7.301 (7.300-7.400)
[2024-05-31 08:51] LABS: Alanine Aminotransferase 19 U/L (6-50); Albumin Level 4.7 g/dL (3.5-5.1); Alkaline Phosphatase 83 U/L (38-126); Anion Gap 17 mmol/L (4-12); Aspartate Amino Transferase 28 U/L (17-59); Bilirubin,Total 0.3 mg/dL (0.2-1.3); Blood Urea Nitrogen 17 mg/dL (9-20); Calcium 8.6 mg/dL (8.4-10.2); Carbon Dioxide 25 mmol/L (22-30); Chloride 100 mmol/L (98-107); Estimated CRCL calculation 63 ml/min; Estimated Glomerular Filt Rate 51; Glucose 229 mg/dL (65-110); Lactic Acid Reflex 4.9 mmol/L (0.7-2.0); Lipase 136 U/L (23-300); Magnesium 2.1 mg/dL (1.6-2.3); Phosphorus 6.4 mg/dL (2.5-4.5); Potassium 3.9 mmol/L (3.4-5.0); Prothrombin Time 13.5 Seconds (11.1-14.7); Sodium 142 mmol/L (137-145)
[2024-05-31 08:52] LABS: Partial Thromboplastin Time 24.7 Seconds (22.3-36.8)
[2024-05-31 09:16] LABS: Acetaminophen < 10 ug/mL (10-30); Ethanol 169 mg/dL (<10)
[2024-05-31 10:00] LABS: Appearance Urine Clear (Clear); Bacteria Urine None Seen /hpf; Bilirubin Urine Negative (Negative); Blood Urine Negative (Negative); Color Urine Yellow (Yellow); Glucose Urine UA 3+ mg/dL (Negative); Ketones Urine Negative (Negative); Leukocyte Esterase Ur Negative LEU/UL (Negative); Nitrate Urine Negative (Negative); Protein Urine 1+ mg/dL (Negative); RBC Urine 0-2 /hpf (0-2); Specific Grav Ur 1.017 (1.001-1.035); Squamous Epithelial Cell Urine None Seen /hpf (Few); Urobilinogen Urine 0.2 mg/dL (<2.0); WBC Urine 0-5 /hpf (0-3); pH Urine 5.5 (5.0-9.0)
[2024-05-31 10:18] LABS: Amphetamine Screen Urine Negative (Negative); Barbiturate Screen Urine Negative (Negative); Benzodiazepines Screen Urine Negative (Negative); Cannabinoid Screen Urine Positive (Negative); Cocaine Screen Urine Negative (Negative); Methadone Screen Urine Negative (Negative); Opiate Screen Urine Negative (Negative); Phencyclidine Screen Urine Negative (Negative)
--- NOTE | 2024-05-31 10:18 | PC.NURSE ---
pt mother called to give more information. she reports she heard pt moaning in the other room and when she opened the door pt was laying face first on the floor in his own vomit. she states pt has hx of ETOH and drug abuse and was in rehab about ten years ago. she states pt has been sober for about a year until today. she states pt was popular in high school and now does not have many friends and has been struggling accepting this. she states pt has hx of Aspergers and has a hard time in rehab due to being shy.
[2024-05-31 10:22] LABS: Add Urine Microscopic? YES
[2024-05-31 11:39] LABS: Reflex Lactic Acid Yes or No Add Lactic
[2024-05-31 12:06] LABS: Lactic Acid 2.1 mmol/L (0.7-2.0)
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
[2024-05-31] MEDS: metroNIDAZOLE 500 MG/ISO 100ML 500 MG/100 ML BAG 100 MG IVPB ×2 (15:08→21:15)
--- NOTE | 2024-05-31 15:47 | PC.NURSE ---
ok per patient to give mother, tucker, information mom tucker--[phone] dad sally ---[phone]
--- NOTE | 2024-05-31 16:16 | PM.IMHP ---
H&P: HPI History of Present Illness Date/Time: 05/31/24 16:15 Chief Complaint: Found face down in vomit. Narrative: This is a 29-year-old male with history of alcohol and drug abuse, alcohol withdrawal seizures, anxiety, and depression who presented to the emergency department via EMS for evaluation after his mom found him face down in vomit. He is a fair historian and some of the following is supplemented via a review of his EMR as well as information provided by his mother with the patient's permission. The patient admitted to drinking 2 pints of alcohol yesterday and snorting fentanyl. Mother found him lying face down in a pile of nonbloody and nonbilious emesis with ?some unknown pills around him.? He was initially lethargic but came to with stimuli and intranasal Narcan and he had several more episodes of emesis thereafter. He has felt short of breath since vomiting earlier this morning and he is coughing up thick yellow-green phlegm. When questioned about the pills that were found near his person this morning, he denies that he took any medication in excess and also denies intentional overdose and suicidal thoughts or intent. He does not know what pills his mother found. At this time he complains of continued nausea but he has not had any vomiting since arrival to the floor. He denies fever, sinus congestion, sore throat, chest pain, pleuritic pain, hematemesis, melena, hematochezia, epigastric and abdominal pain, diarrhea, constipation, and dysuria. He also denies sweats, hallucinations, and tremors at this time. Unfortunately he is not able to tell me how much alcohol he has been drinking recently. In the ED: He arrived to the emergency department actively vomiting. He was afebrile with blood pressures as low as 87/53. He has been tachycardic in the upper 90s to low 100s. Labs were significant for WBC count of 13.4, hemoglobin 14.8, platelet 229, BUN 17, creatinine 1.60, glucose 229, lactic acid 4.9. Urine drug screen was positive for cannabinoids. Acetaminophen level was < 10. Ethyl alcohol level was 169. Head CT showed no significant abnormalities. Chest x-ray showed diffuse reticulonodular pattern in the lungs consistent with pulmonary edema versus pneumonia. He was given IV fluid bolus, haloperidol 5 mg IM for agitation, and was started on ceftriaxone and metronidazole for possible aspiration pneumonia. He is being admitted in this setting for close monitoring and further treatment. Review of Systems Review of Systems: 12 systems were reviewed and are negative except for as per HPI. [facility] Past Medical History Medical History (Updated 05/31/24 @ 23:04 by Elissa Hicks PA-C) ADHD Alcohol abuse Alcohol withdrawal seizure Anxiety Asperger's disorder Blindness of left eye Due to cataract extraction left eye. Depression Polysubstance abuse Schizophrenia Suicide attempt Age 16. Surgical History Surgical History (Updated 05/31/24 @ 22:57 by Elissa Hicks PA-C) History of left cataract extraction Family History Family History Mother Urinary tract infection Father History of cholecystectomy Father Alcoholism Social History Social History (Updated 05/31/24 @ 22:58 by Elissa Hicks PA-C) Social History: Surrogate medical decision maker: Araceli Harrington, mother. Code status: Full code. Smoking packs per day: 1 Smoking cigarettes per day: 20.0 Years smoked: 6 Smoking pack-years: 6.00 Smoking status: Former smoker Tobacco type: cigarettes Second hand tobacco smoke exposure: Yes Smoking end date: 10/19/21 Alcohol intake: current Alcohol use details: Patient unable to qualify. Substance use: current Substance use type: marijuana, crack/cocaine, heroin, opiates and painkillers Do You Feel Safe in your Home?: Yes Lack of Transportation: No Lack of Food: Never True Current Housing: I Have Housing Concerned About Fu
--- NOTE | 2024-05-31 16:30 | ADMGEN ---
This patient, Talat Villagomez II, was admitted to IMU Room 207-01 at 1614. Patient/family oriented to hospital policies and general routines including ID bracelet, bed and alarms, visiting hours, pain management, procedures, bathroom and other care routines, personal items, smoking policy, room service/diet, and visiting hours. Information on how to activate the Rapid Response Team has been discussed. Patient/Family are encouraged to report perceived risks to care and to ask questions if they do not understand what they are told or what they should do.
[2024-05-31] MEDS: ACETAMINOPHEN 325 MG TABLET 650 MG PO (16:51)
[2024-05-31] MEDS: LACTATED RINGERS 1,000 ML 125 ML IV CONT (16:52)
[2024-05-31 17:07] LABS: Salicylate < 1.0 mg/dL (2-20)
[2024-05-31 17:32] LABS: Hemoglobin A1C 5.6 % (<5.7)
--- NOTE | 2024-05-31 20:26 | ECG_ITS ---
Test Date: 2024-05-31 20:38:07 Measurements Intervals [place] Rate: 89 P: 59 ME: 148 QRS: 62 QRSD: 92 T: 46 QT: 355 QTc: 433 Interpretive Statements SINUS RHYTHM NORMAL ECG No previous ECG available for comparison Electronically Signed On 06-01-2024 10:08:36 CDT by Raul Gamboa D.O.
[2024-05-31] MEDS: chlordiazePOXIDE (*CRX) 25 MG CAPSULE PO (21:16)
[2024-06-01] VITALS (21 sets, daily range): BP systolic 110–136; BP diastolic 59–75; PULSE 64–112; RESP 16–20; TEMP 36.1–37.2; O2SAT 93–98
[2024-06-01 00:20] LABS: Lactic Acid Reflex 1.1 mmol/L (0.7-2.0)
[2024-06-01 00:29] LABS: Creatine Kinase 630 U/L (55-170)
[2024-06-01] MEDS: guaiFENesin 12 HR 600 MG TABCR 1200 MG PO ×3 (02:31→20:26)
[2024-06-01] MEDS: LACTATED RINGERS 1,000 ML 125 ML IV CONT ×2 (02:31→08:31)
[2024-06-01] MEDS: chlordiazePOXIDE (*CRX) 25 MG CAPSULE PO ×3 (04:29→20:24)
[2024-06-01 04:36] LABS: Hematocrit 37.8 % (42.0-52.0); Mean Corpuscular HGB Conc 34.4 g/dl (32-36); Mean Corpuscular Hemoglobin 32.3 pg (26-34); Mean Corpuscular Volume 93.8 fl (80-100); Mean Platelet Volume 10.2 fl (7.4-10.4); Platelet Count Result 178 k/mm3 (150-375); Red Blood Count 4.03 M/mm3 (4.6-6.20); White Blood Count 12.8 K/mm3 (4.5-10.0)
[2024-06-01 04:59] LABS: Alanine Aminotransferase 21 U/L (6-50); Albumin Level 3.8 g/dL (3.5-5.1); Alkaline Phosphatase 69 U/L (38-126); Anion Gap 9 mmol/L (4-12); Aspartate Amino Transferase 37 U/L (17-59); Blood Urea Nitrogen 11 mg/dL (9-20); Calcium 8.2 mg/dL (8.4-10.2); Carbon Dioxide 24 mmol/L (22-30); Chloride 102 mmol/L (98-107); Estimated CRCL calculation 105 ml/min; Estimated Glomerular Filt Rate > 60; Glucose 104 mg/dL (65-110); Magnesium 1.7 mg/dL (1.6-2.3); Phosphorus 2.3 mg/dL (2.5-4.5); Potassium 3.7 mmol/L (3.4-5.0); Sodium 135 mmol/L (137-145)
[2024-06-01] MEDS: metroNIDAZOLE 500 MG/ISO 100ML 500 MG/100 ML BAG 100 MG IVPB ×3 (06:16→21:56)
[2024-06-01] MEDS: ACETAMINOPHEN 325 MG TABLET 650 MG PO ×3 (08:16→20:27)
[2024-06-01] MEDS: THIAMINE HCL 100 MG TABLET PO (08:17)
[2024-06-01] MEDS: FOLIC ACID 1 MG TABLET PO (08:17)
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
[2024-06-01] MEDS: FLUTICASONE PROPIONATE 0.05% NA SPR 16 GM BTL (*BKC) 1 SPRAY NASAL (14:34)
[2024-06-01] MEDS: NICOTINE (*PBKC) 14 MG PATCH 1 PATCH TRANSDERM (21:56)
[2024-06-02] VITALS (13 sets, daily range): BP systolic 114–125; BP diastolic 60–78; PULSE 54–95; RESP 15–20; TEMP 36.1–37.2; O2SAT 96–99
[2024-06-02 04:23] LABS: Basophils Percent Auto 0.3 % (0.2-1.2); Eosinophils Absolute Auto 0.1 K/mm3 (0-0.3); Eosinophils Percent Auto 1.4 % (0-4.4); Hematocrit 41.4 % (42.0-52.0); Hemoglobin 13.6 g/dL (14.0-18.0); Immature Granulocyte Absolute 0.03 K/mm3 (0.00-0.031); Immature Granulocyte Percent A 0.3 % (0-0.5); Lymphocytes Percent Auto 15.8 % (18.3-44.2); Mean Corpuscular HGB Conc 32.9 g/dl (32-36); Mean Corpuscular Hemoglobin 30.9 pg (26-34); Mean Corpuscular Volume 94.1 fl (80-100); Monocytes Absolute Auto 1.1 K/mm3 (0.1-0.6); Monocytes Percent Auto 11.3 % (2.6-8.5); Neutrophils Absolute Auto 7.2 K/mm3 (1.3-6.7); Neutrophils Percent Auto 70.9 % (45.5-73.1); Platelet Count Result 197 k/mm3 (150-375); Red Cell Distribution Width 14.1 % (11.5-14.5); White Blood Count 10.1 K/mm3 (4.5-10.0)
[2024-06-02 04:35] LABS: Anion Gap 10 mmol/L (4-12); Blood Urea Nitrogen 11 mg/dL (9-20); Calcium 8.8 mg/dL (8.4-10.2); Carbon Dioxide 24 mmol/L (22-30); Chloride 105 mmol/L (98-107); Estimated CRCL calculation 95 ml/min; Estimated Glomerular Filt Rate > 60; Glucose 103 mg/dL (65-110); Magnesium 1.9 mg/dL (1.6-2.3); Phosphorus 2.5 mg/dL (2.5-4.5); Sodium 139 mmol/L (137-145)
[2024-06-02 04:49] LABS: Creatine Kinase 421 U/L (55-170)
[2024-06-02] MEDS: chlordiazePOXIDE (*CRX) 25 MG CAPSULE PO ×2 (04:52→12:32)
[2024-06-02] MEDS: metroNIDAZOLE 500 MG/ISO 100ML 500 MG/100 ML BAG 100 MG IVPB (09:15)
[2024-06-02] MEDS: THERAPEUTIC MULTIVITAMINS/MINERALS TAB (*BKC) 1 TABLET PO (09:18)
[2024-06-02] MEDS: LORATADINE 10 MG TABLET PO (09:18)
[2024-06-02] MEDS: guaiFENesin 12 HR 600 MG TABCR 1200 MG PO (09:18)
[2024-06-02] MEDS: LACTATED RINGERS 1,000 ML 70 ML IV CONT (09:18)
[2024-06-02] MEDS: THIAMINE HCL 100 MG TABLET PO (09:18)
[2024-06-02] MEDS: FLUTICASONE PROPIONATE 0.05% NA SPR 16 GM BTL (*BKC) 1 SPRAY NASAL (09:18)
[2024-06-02] MEDS: FOLIC ACID 1 MG TABLET PO (09:18)
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
--- NOTE | 2024-06-07 08:52 | PC.NURSE ---
Blood cx show no growth. Sputum cx shows no growth. Dr. Chandler acevedo.
== END 2024-06-02 14:07 | disposition home or self-care (01) | DRG 871 ==
LOC: ANHED 14:56 → ANHIMU 15:45
PROVIDERS: Physician Assistant; Admitting Provider Internal Medicine; Emergency Provider Emergency Medicine; Visit Provider Internal Medicine
DX: A41.9 Sepsis, unspecified organism (principal); J69.0 Pneumonitis due to inhalation of food and vomit; N17.9 Acute kidney failure, unspecified; E86.0 Dehydration; F10.10 Alcohol abuse, uncomplicated; F19.10 Other psychoactive substance abuse, uncomplicated; F32.A Depression, unspecified; R73.9 Hyperglycemia, unspecified; Z87.891 Personal history of nicotine dependence; Z98.42 Cataract extraction status, left eye
CPT/HCPCS: 36415; 70450; 71045; 80053; 80069; 80307; 81001; 82550; 82803; 83036; 83605; 83690; 83735; 83930; 84100; 85025; 85027; 85610; 85730; 87040; 87070; 87205; 93005; 94667; 96361; 96365; 96366; 96372; 96375; 96376; 99285; A9270; G0378; J0696; J1630; J1836; J2405; J7030; J7120

== ENCOUNTER 2025-05-19 09:30 | Emergency (ER) | payer MEDICARE, MEDICAID, SELFPAY ==
--- NOTE | ~2025-05-19 | CT_ITS ---
CTA chest PE protocol Ordering provider: Nicolas Pond MD History: 30 years Male with . Shortness of breath, elevated dimer . Comparison: September 30, 2021 Technique: CT angiogram chest was performed following timed intravenous injection of contrast. Thin s lice axial images and reformatted coronal images were obtained. Three dimensional reformatted images of the chest were also obtained using a [employer] workstation. . Automated exposure control and iterati ve reconstruction technique were employed. The dose-length product was 321.17 mGy-cm. Findings: PULMONARY ARTERIES: No pulmonary embolus. VISUALIZED THORACIC INLET: Normal. MEDIASTINUM: Aorta/coronary arteries: The thoracic aorta is normal. Heart/other: The heart is not enlarged. Lymph nodes: No mediastinal or hilar adenopathy. LUNGS: No pulmonary nodules or masses. No infiltrates or effusions. No pneumothorax. VISUALIZED UPPER ABDOMEN: 2 Right renal arteries are noted. Otherwise, the visualized upper abdomen is normal. MUSCULOSKELETAL: Soft tissues: The superficial soft tissues are normal. Bones: Normal spine. IMPRESSION: 1. No pulmonary embolism. 2. No acute cardiopulmonary Reviewed, dictated and finalized at location A.
--- NOTE | ~2025-05-19 | XR_ITS ---
XR chest 1V portable Ordering provider: Nicolas Pond MD History: 30 years Male with . dyspnea, WEAKNESS . Comparison: May 31, 2024 FINDINGS: MEDIASTINUM: The cardiac silhouette is not enlarged. LUNGS: No infiltrates, effusions or pneumothorax. OTHER: No free air under the diaphragm. IMPRESSION: No acute cardiopulmonary pathology. Reviewed, dictated and finalized at location A.
--- NOTE | ~2025-05-19 | CT_ITS ---
EXAMINATION: CT BRAIN W/O DATE: 05/19/2025 11:02 INDICATION: Leg weakness TECHNIQUE: Computed tomography (CT) of the head was performed without intravenous contrast. The dose- length product was 529.67 mGy-cm. Automated exposure control and iterative reconstruction technique w ere employed. COMPARISON: CT dated 05/31/2024 FINDINGS: Normal brain parenchymal volume for age. Normal savage-white differentiation. No acute intrac ranial hemorrhage, infarction, mass or mass effect. No ventriculomegaly or midline shift. Midline sagittal images demonstrate a normal corpus callosum, c raniovertebral junction and sella turcica. Basilar cisterns are patent. Paranasal sinuses and mastoids are pneumatized. No depressed skull fractures. IMPRESSION: 1. No acute intracranial abnormality. Reviewed, dictated and finalized at location B.
--- OUTSIDE RECORDS SUMMARY | 2025-05-19 09:33 | XMS_ITS | Clinical Summary ---
Author Organization [facility] Address [address] [place] [address] Care Team Providers Care Shipping Lead Name Role Phone Unavailable Primary Care Provider Unavailabl e Allergies No known active allergies Medications naltrexone 50 MG tablet Take 50 mg by mouth daily. Active Active Problems Problem Noted Date Diagnosed Date Herpes simplex infection of penis 08/02/2019 Bipolar 1 disorder ([facility]) 05/19/2019 Severe episode of recurrent major depressive disorder, with psychotic features ([facility]) 05/19/2019 Alcohol withdrawal syndrome without complication ([facility]) 09/10/2018 Immunizations Immunization Administration Dates Next Due Influenza Adult (Generic) 08/02/2018(Deferred: P atient/family declined) Family History Medical History Relation Comments Heart Mother bi polar Mother Relation Status Comments Mother Social History Tobacco Use Types Packs/Day Years Used Date Smoking Tobacco: Every Day Cigarettes Smokeless Tobacco: Never Alcohol Use Standard Drinks/Week Comments Yes 0 (1 standard drink = 0.6 oz pur e alcohol) PHQ-2 Answer Date Recorded PHQ-2 Score 0 10/04/2019 Sex and Gender Information Value Date Recorded Sex Assigned at Not on file 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 Gender Identity Not on file Sexual Orientation Not on file Last Filed Vital Signs Vital Sign Reading Time Taken Comments Blood Pressure 120/68 08/30/2019 1:39 PM CDT Pulse 93 08/30/2019 1:39 PM CDT Temperature 35.9 C (96.7 F) 08/30/2019 1:39 PM CDT Respiratory Rate 18 08/30/2019 1:39 PM CDT Oxygen Saturation 98% 08/30/2019 1:39 PM CDT Inhaled Oxygen Concentration - - Weight 67.2 kg (148 lb 3.2 oz) 08/30/2019 1:39 P M CDT Height 175.3 cm (5' 9) 05/30/2019 2:05 PM CDT Body Mass Index 21.89 05/30/2019 2:05 PM CDT Plan of Treatment Health Maintenance Due Date Last Done Comments Annual Physical 1997 DTaP, Tdap and Td Vaccines ( 1 - Tdap) 2013 Hepatitis B Vaccines (1 of 3 - 19+ 3-dose series) 2013 Pneumococcal Vaccine: Pediat rics (0 to 5 Years) and At-Risk Patients (6 to 49 Years) (1 of 2 - PCV) 2013 COVID-19 Vaccine ( - 2023-2 5 season) 2024 PHQ-2 (Physician [place]) 11/02/2024 Hepatitis C Completed 08/02/2019 HPV Vaccines Aged Out No longer eligi ble based on patient's age to complete this topic Meningococcal B Vaccine Aged Out No l onger eligible based on patient's age to complete this topic Meningococcal Vaccine Aged Out No adrián ramona eligible based on patient's age to complete this topic RSV Immunizations Under 20 Months Aged Out No longer eligible based on patient's age to complete this topic Procedures Procedure Name Priority Date/Time Associated Diagnosis Comments HEPATITIS C ANTIBODY Routine 08/02/2019 2:28 PM CDT Possible exposure to STD Dysuria Herpes simplex infection of penis from Last 3 Months or Most Recently Relevant to Health Maintenance Results * HEPATITIS C ANTIBODY (08/02/2019 2:28 PM CDT) HEPATITIS C AB NON-REACT CAROL NON-REACT CAROL [facility] SIGNAL TO CUTOFF 0.01 <1.00 [facility] Comment: HCV antibody was non-reactive. There is no laboratory evidence of HCV infection. In most cases, no further action is required. However, if recent HCV exposure is suspected, a test for HCV RNA (test code 41496) is suggested. For additional information please refer to http://education.City-dimensional network logo/faq/UKT28y5 (This link is being provided for informational/ educational purposes only.) 08/02/2019 2:28 PM CDT 08/03/2019 7:43 AM CDT Narrative Resulting Agency Comment Performing Organization Information: Site ID: [id number] Name: [facility] Address: [address] [id number] Director: Kennedy Stern D.O., MPH Talat Shetty MD LABORATORY Final Result [facility] from Last 3 Months or Most Recently Relevant to Health Maintenance Insurance MEDICARE [facility] Advance Directives * Full Code (Latest Code Status on File) Date Activated Date Inactivated Comments 09/05/2019 8:20 PM
--- OUTSIDE RECORDS SUMMARY | 2025-05-19 09:33 | XMS_ITS | Clinical Summary ---
Author Organization [facility] Address [address] [place] [address] Care Team Providers Care Coordinating Producer Name Role Phone No, Physician Primary Care Provider [phone] Allergies No known active allergies Medications No known medications Active Problems Problem Noted Date Diagnosed Date Alcohol withdrawal syndrome with complication Alcohol dependence with withdrawal 05/24/2019 Resolved Problems Problem Noted Date Diagnosed Date Resolved Date Alcohol withdrawal syndrome without complication 10/13/2018 05/24/2019 Alcohol withdrawal syndrome without complication 09/10/2018 05/24/2019 Non-cardiac chest pain 09/10/201805/24 Immunizations Immunization Administration Dates Next Due Influenza, Trivalent, Preservative Free, Intramu scular 09/23/2024 Tdap 01/19/2023 Medical History Medical History Date Comments Schizophrenia (HCC) Anxiety Depression Social History Tobacco Use Types Packs/Day Years Used Date Smoking Tobacco: Heavy Smoker Cigarettes 2 2 Smokeless Tobacco: Never Tobacco Cessation:Ready to Q uit: No; Counseling Given: No Alcohol Use Standard Drinks/Week Comments Yes 106 (1 standard drink = 0.6 oz p ure alcohol) [facility] Utilities Answer Date Recorded In the past 12 months has [employer] gas, oil, or water company threatened to shut off services in your home? No 09/21/2024 Social Connection and Isolat ion Panel [NHANES] Answer Date Recorded In a typical week, how many times do you talk on the phone with family, friends, or neighbors? More than three times a week 09/21/2024 How often do you get togethe r with friends or relatives? More than three times a week 09/21/2024 How often do you attend chur ch or orthodox services? Never 09/21/2024 Do you belong to any clubs o r organizations such as advent groups, unions, fraternal or athletic groups, or school groups? No 09/21/2024 How often do you attend meet ings of the clubs or organizations you belong to? Never 09/21/2024 Are you , , di vorced, , never , or living with a partner? Never 09/21/2024 Overall Financial Resource Strain (CARDIA) Answe r Date Recorded How hard is it for you to pa y for the very basics like food, housing, medical care, and heating? Somewhat hard 09/21/2024 Hunger Vital Sign Answer Date Recorded Within the past 12 months, y ou worried that your food would run out before you got the money to buy more. Sometimes true Within the past 12 months, t he food you bought just didn't last and you didn't have money to get more. Sometimes true PRAPARE - Transportation Answer Date Re corded In the past 12 months, has l ack of transportation kept you from medical appointments or from getting medications? No 09/03 In the past 12 months, has l ack of transportation kept you from meetings, work, or from getting things needed for daily living? No 09/21/2024 Housing Stability Vital Sign Answer Aureliano e Recorded In the last 12 months, was t here a time when you were not able to pay the mortgage or rent on time? No 09/21/2024 In the past 12 months, how m any times have you moved where you were living? 0 09/21/2024 At any time in the past 12 m [facility], were you homeless or living in a half-way (including now)? No 09/21/2024 Personal Safety Answer Date Recorded Have you ever been in or are you currently in a harmful physical or emotional relationship or is someone making you feel afraid or unsafe? 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 Gender Identity Not on file Sexual Orientation Not on file Obstetrics History Last Filed Vital Signs Vital Sign Reading Time Taken Comments Blood Pressure 118/78 09/23/2024 2:35 PM SUBSTATION MAINTENANCE TECHNICIAN Pulse 79 09/23/2024 2:35 PM SUBSTATION MAINTENANCE TECHNICIAN Temperature 36.2 C (97.1 F) 09/23/2024 2:35 PM SUBSTATION MAINTENANCE TECHNICIAN Respiratory Rate 18 09/23/2024 2:35 PM SUBSTATION MAINTENANCE TECHNICIAN Oxygen Saturation 100% 09/23/2024 2:35 PM SUBSTATION MAINTENANCE TECHNICIAN Inhaled Oxygen Concentration - - Weight 86.2 kg (190 lb 0.6 oz) 09/21/2024 3:01 A M SUBSTATION MAINTENANCE TECHNICIAN Height 175.3 cm (5' 9) 09/20/2024 11:20 PM SUBSTATION MAINTENANCE TECHNICIAN Body Mass Index 28.06 09/20/2024 11:20 PM SUBSTATION MAINTENANCE TECHNICIAN Plan of Treatment Health Maintenance Due Date Last Done Comments Depression Screening 1994 Hepatitis C Screening 1994 Varicella Vaccines (1 of 2 - 13+ 2-dose series) 2007 Regular Well Visit/Exam 18-64 2012 Pneumococcal vaccine <65 (1 of 2 - PCV) 2013 Covid-19 Vaccine ( season) 2024 11/28/2021, 05/11/2021, 04/20/2021 Influenza Vaccine (#1) 2025 09/23/2024, 2022 DTaP/Tdap/Td Vaccine (7 - Td or Tdap) 01/19/2033 01/19/2023, 09/10/2020, 10/29/1995, Additional history exists Hepatitis B Screening Completed 02/06/1995 , 1994, 1994 HPV Vaccines Aged Out No longer eligi ble based on patient's age to complete this topic Insurance MEDICARE [facility] MEDICARE MEDICARE Advance Directives For more information, please contact: [phone] * Full Code (Latest Code Status on File) Date Activated Date Inactivated Comments 09/20/2024 11:36 PM 09/23/2024 9:17 PM * Full Code Date Activated Date Inactivated Comments 05/24/2019 4:38 PM 05/27/2019 8:49 PM * Full Code Date Activated Date Inactivated Comments 10/13/2018 1:19 PM 10/16/2018 12:11 PM * Full Code Date Activated Date Inactivated Comments 09/10/2018 1:18 PM 09/11/2018 1:13 PM Healthcare Agents on File Name Relationship Healthcare Agent Relationshi p Communication Araceli Harrington Mother First Alternate Health Care Agent Care Teams Coordinating Producer Relationship Specialty Start Date End Date No, Physician PCP - General 09/20/24
--- OUTSIDE RECORDS SUMMARY | 2025-05-19 09:33 | XMS_ITS | Referral Summary ---
Author Organization [facility] Address [address] [place] [address] Care Team Providers Care Level Vial Sealer Name Role Phone No, Physician Primary Care Provider [phone] Allergies No known active allergies Medications No [...] Preservative Free, Intramu scular 09/23/2024 Tdap 01/19/2023 Social History Tobacco Use Types Packs/Day Years Used Date Smoking Tobacco: Heavy Smoker Cigarettes 2 2 Smokeless Tobacco: Never Tobacco Cessation:Ready to Q uit: No; Counseling Given: No Alcohol Use Standard Drinks/Week Comments Yes 106 (1 standard drink = 0.6 oz p ure alcohol) [facility] Utilities Answer Date Recorded In the past 12 months has [employer], [employer], oil, or water [employer] threatened to shut off services in your [...] week 09/21/2024 How often do you attend [facility] or mu-ism services? Never 09/21/2024 Do you belong to [...] any time in the past 12 m [facility], were you homeless or living in a fci (including now)? No 09/21/2024 Personal Safety Answer Date Recorded Have you ever been in or are you currently in a harmful physical or emotional relationship or is someone making you feel afraid or unsafe? Denies 09/20/2024 Sex and Gender Information Value Date Recorded Sex Assigned at Not on file Legal Sex Male 9:34 PM SENIOR RECEPTIONIST Gender Identity Not on file Sexual Orientation Not on file Last Filed Vital Signs Vital Sign Reading Time Taken Comments Blood Pressure 118/78 09/23/2024 2:35 PM SENIOR RECEPTIONIST Pulse 79 09/23/2024 2:35 PM SENIOR RECEPTIONIST Temperature 36.2 C (97.1 F) 09/23/2024 2:35 PM SENIOR RECEPTIONIST Respiratory Rate 18 09/23/2024 2:35 PM SENIOR RECEPTIONIST Oxygen Saturation 100% 09/23/2024 2:35 PM SENIOR RECEPTIONIST Inhaled Oxygen Concentration - - Weight 86.2 kg (190 lb 0.6 oz) 09/21/2024 3:01 A M SENIOR RECEPTIONIST Height 175.3 cm (5' 9) 09/20/2024 11:20 PM SENIOR RECEPTIONIST Body Mass Index 28.06 09/20/2024 11:20 PM SENIOR RECEPTIONIST Plan of Treatment Not on file Insurance MEDICARE [facility] MEDICARE MEDICARE Advance Directives For more information, please contact: [phone] * Full Code (Latest Code Status on [...] First Alternate Health Care Agent Care Teams Level Vial Sealer Relationship Specialty Start Date End Date No, Physician PCP - General 09/20/24
[2025-05-19 09:58] VITALS: BP 124/70; PULSE 61; RESP 18; TEMP 36.6
--- OUTSIDE RECORDS SUMMARY | 2025-05-19 10:20 | XMS_ITS | Clinical Summary ---
Author Organization [facility] Address [address] [place] [address] Care Team Providers Care Recruiting Coordinator Name Role Phone No, Physician Primary Care Provider [phone] Allergies No known active allergies Medications No [...] drink = 0.6 oz p ure alcohol) [facility] Utilities Answer Date Recorded In the past 12 months has [employer], gas, oil, or water company threatened to [...] often do you attend chur ch or denominational services? Never 09/21/2024 Do you belong to any clubs o r organizations such as moravian groups, unions, fraternal or athletic groups, or [...] any time in the past 12 m [facility], were you homeless or living in a detention (including now)? No 09/21/2024 Personal Safety Answer Date Recorded Have you ever been in or are you currently in a harmful physical or emotional relationship or is someone making you feel afraid or unsafe? 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 Gender Identity Not on file Sexual Orientation Not on file Obstetrics History Last Filed Vital Signs Vital Sign Reading Time Taken Comments Blood Pressure 118/78 09/23/2024 2:35 PM ASSOCIATE ACCOUNT DIRECTOR Pulse 79 09/23/2024 2:35 PM ASSOCIATE ACCOUNT DIRECTOR Temperature 36.2 C (97.1 F) 09/23/2024 2:35 PM ASSOCIATE ACCOUNT DIRECTOR Respiratory Rate 18 09/23/2024 2:35 PM ASSOCIATE ACCOUNT DIRECTOR Oxygen Saturation 100% 09/23/2024 2:35 PM ASSOCIATE ACCOUNT DIRECTOR Inhaled Oxygen Concentration - - Weight 86.2 kg (190 lb 0.6 oz) 09/21/2024 3:01 A M ASSOCIATE ACCOUNT DIRECTOR Height 175.3 cm (5' 9) 09/20/2024 11:20 PM ASSOCIATE ACCOUNT DIRECTOR Body Mass Index 28.06 09/20/2024 11:20 PM ASSOCIATE ACCOUNT DIRECTOR Plan of Treatment Health Maintenance Due Date [...] age to complete this topic Insurance MEDICARE [facility] MEDICARE MEDICARE Advance Directives For more information, please contact: [phone] * Full Code (Latest Code Status on [...] First Alternate Health Care Agent Care Teams Recruiting Coordinator Relationship Specialty Start Date End Date No, Physician PCP - General 09/20/24
--- OUTSIDE RECORDS SUMMARY | 2025-05-19 10:20 | XMS_ITS | Clinical Summary ---
Author Organization [facility] Address [address] [place] [address] Care Team Providers Care Safe Expert Name Role Phone Unavailable Primary Care Provider Unavailabl e Allergies No known active allergies Medications naltrexone 50 MG tablet Take 50 mg by mouth daily. 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 For additional information please refer to http://education.[employer]/faq/LRM94y9 (This link is being provided for informational/ educational purposes only.) 08/02/2019 2:28 PM CDT 08/03/2019 7:43 AM CDT Narrative Resulting Agency Comment Performing Organization Information: Site ID: [id number] Name: [facility] Address: [address] [id number] Director: Kennedy Stern D.O., MPH Talat Shetty MD LABORATORY Final Result [facility] from Last 3 Months or Most Recently Relevant to Health Maintenance Insurance MEDICARE [facility] Advance Directives * Full Code (Latest Code Status on File) Date Activated Date Inactivated Comments 09/05/2019 8:20 PM
--- OUTSIDE RECORDS SUMMARY | 2025-05-19 10:20 | XMS_ITS | Referral Summary ---
Author Organization [facility] Address [address] [place] [address] Care Team Providers Care Cotton Jammer Name Role Phone No, Physician Primary Care Provider [phone] Allergies No known active allergies Medications No [...] drink = 0.6 oz p ure alcohol) [facility] Utilities Answer Date Recorded In the past 12 months has [employer], [employer], oil, or water [employer] threatened to shut off services in your [...] week 09/21/2024 How often do you attend [facility] or judaism services? Never 09/21/2024 Do you belong to any clubs o r organizations such as restorationist groups, unions, fraternal or athletic groups, or [...] any time in the past 12 m [facility], were you homeless or living in a chcf (including now)? No 09/21/2024 Personal Safety Answer Date Recorded Have you ever been in or are you currently in a harmful physical or emotional relationship or is someone making you feel afraid or unsafe? Denies 09/20/2024 Sex and Gender Information Value Date Recorded Sex Assigned at Not on file Legal Sex Male 9:34 PM CLAM PICKER Gender Identity Not on file Sexual Orientation Not on file Last Filed Vital Signs Vital Sign Reading Time Taken Comments Blood Pressure 118/78 09/23/2024 2:35 PM CLAM PICKER Pulse 79 09/23/2024 2:35 PM CLAM PICKER Temperature 36.2 C (97.1 F) 09/23/2024 2:35 PM CLAM PICKER Respiratory Rate 18 09/23/2024 2:35 PM CLAM PICKER Oxygen Saturation 100% 09/23/2024 2:35 PM CLAM PICKER Inhaled Oxygen Concentration - - Weight 86.2 kg (190 lb 0.6 oz) 09/21/2024 3:01 A M CLAM PICKER Height 175.3 cm (5' 9) 09/20/2024 11:20 PM CLAM PICKER Body Mass Index 28.06 09/20/2024 11:20 PM CLAM PICKER Plan of Treatment Not on file Insurance MEDICARE [facility] MEDICARE MEDICARE Advance Directives For more information, please contact: [phone] * Full Code (Latest Code Status on [...] First Alternate Health Care Agent Care Teams Cotton Jammer Relationship Specialty Start Date End Date No, Physician PCP - General 09/20/24
--- NOTE | 2025-05-19 10:34 | ECG_ITS ---
Test Date: 2025-05-19 10:40:09 Measurements Intervals [place] Rate: 59 P: 64 [place]: 147 QRS: 47 QRSD: 92 T: 53 QT: 433 QTc: 432 Interpretive Statements SINUS BRADYCARDIA WITH SINUS ARRHYTHMIA NORMAL ELECTROCARDIOGRAM Compared to ECG 05/31/2024 20:38:07 NO SIGNIFICANT CHANGE Electronically Signed On 05-19-2025 14:18:55 CDT by Chadwick Walters M.D.
[2025-05-19] MEDS: SODIUM CHLORIDE 0.9% IV 1,000 ML 999 ML IV CONT (10:40)
--- NOTE | 2025-05-19 10:41 | PC.NURSE ---
called ED respiratory for VBG at bedside, was unable to get through, spoke with Atiya from respiratory who stated that she would let the ED respiratory therapist know
[2025-05-19 10:51] LABS: Fractional Inspired Oxygen 21 %; HCO3 VBG 23.1 mEq/l (24.0-30.0); PCO2 VBG 41.8 mmHg (42.0-48.0); pH VBG 7.361 (7.300-7.400)
[2025-05-19 10:52] LABS: Liters per Minute 0.0 LPM; PO2 VBG < 27.0 mmHg (35.0-45.0)
[2025-05-19 10:57] LABS: Hematocrit 42.9 % (42.0-52.0); Hemoglobin 14.5 g/dL (14.0-18.0); Immature Granulocyte Percent A 0.4 % (0-0.5); Lymphocytes Absolute Auto 0.99 K/mm3 (0.9-3.2); Mean Corpuscular HGB Conc 33.8 g/dl (32-36); Mean Corpuscular Hemoglobin 30.4 pg (26-34); Mean Corpuscular Volume 89.9 fl (80-100); Nucleated Red Blood Cells Absolute Auto 0.000 K/mm3 (0.0-0.012); Nucleated Red Blood Cells Perc 0.0 % (0.0-0.2); Platelet Count Result 258 k/mm3 (150-375); Red Blood Count 4.77 M/mm3 (4.6-6.20); White Blood Count 9.1 K/mm3 (4.5-10.0)
[2025-05-19 10:58] LABS: Add Urine Microscopic? NO; Appearance Urine Clear (Clear); Glucose Urine UA Negative (Negative); Leukocyte Esterase Ur Negative LEU/UL (Negative); Nitrate Urine Negative (Negative); Specific Grav Ur 1.005 (1.001-1.035)
[2025-05-19 11:04] LABS: Alanine Aminotransferase 22 U/L (6-50); Albumin Level 4.7 g/dL (3.5-5.1); Alkaline Phosphatase 73 U/L (38-126); Aspartate Amino Transferase 28 U/L (17-59); Bilirubin,Total 0.6 mg/dL (0.2-1.3); Blood Urea Nitrogen 11 mg/dL (9-20); Calcium 9.5 mg/dL (8.4-10.2); Carbon Dioxide 23 mmol/L (22-30); Estimated CRCL calculation 107 ml/min; Estimated Glomerular Filt Rate > 60; Glucose 95 mg/dL (65-110); Magnesium 2.0 mg/dL (1.6-2.3); Total Protein 8.0 g/dL (6.3-8.2)
--- NOTE | 2025-05-19 11:13 | ED_ITS ---
HPI - General Adult General Chief complaint: Alcohol Stated complaint: etoh used fentanyl to stop drinking ETOH 3 days ag Time Seen by Provider: 05/19/25 10:12 History of Present Illness HPI narrative: Patient has a very flat affect. He answers most questions with :I do not know. This is a 30-year-old male with history of Asperger's and polysubstance use disorder presenting for possible withdrawal. Patient says that he typically drinks 1 pt of hard liquor, a large beer, and then 3 9% alcohol robb's a day. He has not drank since the weekend. Patient states that he has started snorting fentanyl to help him get off of his alcohol withdrawal. Last use 1 last year too. Associated symptoms include shortness of breath. Patient also states that both of his legs are weak and painful. 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 He says that they He denies fevers chills chest pain abdominal pain nausea vomiting diarrhea. Related Data Home Medications ?Medication ?Instructions ?Recorded ?Confirmed ?Last Taken ?Type fluticasone propionate 50 1 spray intranasal DAILY PRN 05/31/24 05/31/24 Unknown History mcg/actuation nasal Allergic Symptoms spray,suspension (Flonase Allergy Relief) Allergies Allergy/AdvReac Type Severity Reaction Status Date / Time No Known Allergies Allergy Verified 05/31/24 08:50 PMFSH Past Medical History Medical History (Updated 05/19/25 @ 16:02 by Nicolas Pond MD) Alcohol withdrawal seizure ADHD Polysubstance abuse Suicide attempt Age 16. 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 Alcohol abuse Schizophrenia Surgical History Surgical History (Updated 05/31/24 @ 22:57 by Elissa Hicks PA-C) History of left cataract extraction Family History Family History Mother Urinary tract infection Father History of cholecystectomy Father Alcoholism Social History Social History (Updated 05/31/24 @ 22:58 by Elissa Hicks PA-C) Social History: Surrogate medical decision maker: Araceli Harrington, mother. Code status: Full code. Smoking packs per day: 1 Smoking cigarettes per day: 20.0 Years smoked: 6 Smoking pack-years: 6.00 Smoking status: Former smoker Tobacco type: cigarettes Second hand tobacco smoke exposure: Yes Smoking end date: 10/19/21 Alcohol intake: current Alcohol use details: Patient unable to qualify. Substance use: current Substance use type: marijuana, crack/cocaine, heroin, opiates and painkillers Do You Feel Safe in your Home?: Yes Lack of Transportation: No Lack of Food: Never True Current Housing: I Have Housing Concerned About Future Housing: No Difficulty Paying Gas/Electric Bills: No Difficulty Paying for Meds: No Currently Unemployed: No Education: Grade School Difficulty w/ Childcare or Family Care: No Living arrangements: with family Additional living arrangements comments: Lives with grandma Occupation/Education: occupation Additional occupation/education comments: works in [employer] but currently is out of work Spiritual care concerns: No Agree to blood products: Yes Exam 2 Narrative: APPEARANCE: No apparent distress. A&O times 1-2, he answers almost every question with I do not know Head: atraumatic. EYES: EOMI, NOSE: Atraumatic NECK: Trachea midline RESPIRATORY: No increased rate of breathing, clear to auscultation, speaking in full sentences CARDIOVASCULAR: RRR, no peripheral edema ABDOMINAL: Non-distended soft nontender MUSCULOSKELETAl: No obvious deformities NEURO: Alert. Cranial nerves 2-12 grossly intact. Sensation light touch, motor function cerebellar function intact for 4 extremities. Gait exam was normal. Skin: Warm dry PSYCHIATRIC: Normal affect Course Vital Signs Vital signs: Vital Signs Temperature 97.8 F 05/19/25 09:58 Pulse Rate 61 05/19/25 09:58 Respiratory Rate 18 05/19/25 09:58 Blood Pressure 124/70 05/19/25 09:58 Oxygen Delivery Room Air 05/19/25 09:58 Temperature 97.8 F 05/19/25 09:58 Pulse Rate 45 L 05/19/25 14:46 Respiratory Rate 19 05/19/25 14:46 Blood Pressure 118/80 05/19/25 14:46 Pulse Oximetry 99 05/19/25 14:46 Oxygen Delivery Room Air 05/19/25 09:58 Medical Decision Making [facility] Narrative Medical decision making narrative: -Course: 30-year-old male history of polysubstance use disorder presenting for possible drug intoxication versus withdrawal. Both cows and CIWA score are low. Patient did report some difficulty breathing although I see no objective signs of dyspnea. Dimer was slightly elevated so a CT PE was ordered which showed no acute cardiopulmonary process. CT head was negative. Other laboratory studies within normal limits. Patient was monitored in the ED for several hours and while we were awaiting the completion of his workup the patient demanded discharge. Patient has been walking throughout his stay with a steady gait. No evidence of lower extremity weakness. His vital signs have been stable throughout his admission. At this time reason to admit the patient. He will be discharged to follow-up with his primary care physician. -DDX includes but is not limited to: Polysubstance use disorder, withdrawal, PE pneumonia bronchitis -Co-morbidities complicating care: Polysubstance use disorder Vital Signs Vital Signs: Vital Signs Temperature 97.8 F 05/19/25 09:58 Pulse Rate 61 05/19/25 09:58 Respiratory Rate 18 05/19/25 09:58 Blood Pressure 124/70 05/19/25 09:58 Oxygen Delivery Room Air 05/19/25 09:58 Temperature 97.8 F 05/19/25 09:58 Pulse Rate 45 L 05/19/25 14:46 Respiratory Rate 19 05/19/25 14:46 Blood Pressure 118/80 05/19/25 14:46 Pulse Oximetry 99 05/19/25 14:46 Oxygen Delivery Room Air 05/19/25 09:58 Lab Data 05/19/25 10:43 05/19/25 10:43 Labs: Lab Results 05/19/25 05/19/25 05/19/25 Range/Units 10:43 10:45 11:19 WBC 9.1 (4.5-10.0) K/mm3 RBC 4.77 (4.6-6.20) M/mm3 Hgb 14.5 (14.0-18.0) g/dL Hct 42.9 (42.0-52.0) % MCV 89.9 (80-100) fl MCH 30.4 (26-34) pg MCHC 33.8 (32-36) g/dl RDW 13.1 (11.5-14.5) % Plt Count 258 (150-375) k/mm3 MPV 11.1 H (7.4-10.4) fl Immature Gran % (Auto) 0.4 (0-0.5) % Neut % (Auto) 82.0 H (45.5-73.1) % Lymph % (Auto) 10.9 L (18.3-44.2) % [place] % (Auto) 6.2 (2.6-8.5) % Eos % (Auto) 0.2 (0-4.4) % Baso % (Auto) 0.3 (0.2-1.2) % Lymph # (Auto) 0.99 (0.9-3.2) K/mm3 [place] # (Auto) 0.6 (0.1-0.6) K/mm3 Eos # (Auto) 0.0 (0-0.3) K/mm3 Baso # (Auto) 0.0 (0.0-0.1) K/mm3 Abs Immat Gran (auto) 0.04 H (0.00-0.031) K/mm3 Absolute Neuts (auto) 7.4 H (1.3-6.7) K/mm3 Absolute Nucleated RBC 0.000 (0.0-0.012) K/mm3 Nucleated RBC % 0.0 (0.0-0.2) % D-Dimer 0.63 H (<0.48) ug/mL Sodium 138 (137-145) mmol/L Potassium 3.7 (3.4-5.0) mmol/L Chloride 103 (98-107) mmol/L Carbon Dioxide 23 (22-30) mmol/L Anion Gap 12 (4-12) mmol/L BUN 11 (9-20) mg/dL Creatinine 0.88 (0.7-1.3) mg/dL Estim Creat Clear Calc 107 ml/min Estimated GFR > 60 (59 - ) Glucose 95 (65-110) mg/dL POC Capillary Glucose 96 (65-105) mg/dl Calcium 9.5 (8.4-10.2) mg/dL Phosphorus 3.1 (2.5-4.5) mg/dL Magnesium 2.0 (1.6-2.3) mg/dL Total Bilirubin 0.6 (0.2-1.3) mg/dL AST 28 (17-59) U/L ALT 22 (6-50) U/L Alkaline Phosphatase 73 (38-126) U/L Total Creatine Kinase Pending Troponin I < 0.012 (0.000-0.034) ng/mL NT-Pro-B Natriuret Pep 45 (19.9-100) pg/mL Total Protein 8.0 (6.3-8.2) g/dL Albumin 4.7 (3.5-5.1) g/dL Urine Color Yellow (Yellow) Urine Appearance Clear (Clear) Urine pH 6.5 (5.0-9.0) Ur Specific [place] 1.005 (1.001-1.035) Urine Protein Negative (Negative) mg/dL Urine Glucose (UA) Negative (Negative) mg/dL Urine Ketones 1+ H (Negative) mg/dL Ur Blood (Man) Negative (Negative) Urine Nitrate Negative (Negative) Urine Bilirubin Negative (Negative) Urine Urobilinogen 0.2 (<2.0) mg/dL Leukocyte Esterase Rfl Negative (Negative) CUAUHTEMOC/UL Urine Opiates Screen Negative (Negative) Urine Methadone Screen Negative (Negative) Ur Barbiturates Screen Negative (Negative) Ur Phencyclidine Scrn Negative (Negative) Ur Amphetamine Screen Negative (Negative) U Benzodiazepines Scrn Negative (Negative) Urine Cocaine Screen Negative (Negative) U Cannabinoids Screen Positive A (Negative) Ethyl Alcohol < 10 (<10) mg/dL ABG Data ABG results: 05/19/25 10:45 VBG pH 7.361 VBG pCO2 41.8 L VBG pO2 < 27.0 L VBG HCO3 23.1 L O2 Delivery Device Room air O2 Liters/Min 0.0 FiO2 21 Discharge Plan Discharge Clinical Impression: Substance use disorder Patient Disposition: Home Condition: Stable Instructions: Antibiotic Form Additional Instructions: Please follow-up with your primary care physician for further management of your substance use disorder. If you develop any new or worsening symptoms return to the ED for re-evaluation. Patient Language: [place]orese Prescriptions: No Action loratadine [Claritin] 10 mg tablet 10 mg PO DAILY Qty: 30 0RF nicotine 14 mg/24 hr Patch 24 Hour 1 patch transdermal HS Qty: 28 0RF folic acid 1 mg Tablet 1 mg PO DAILY Qty: 30 0RF thiamine HCl (vitamin B1) 50 mg Tablet 50 mg PO QAM Qty: 30 0RF Thera M Plus (ferrous fumarat) 9 mg iron-400 mcg Tablet 1 tablet PO QAM Qty: 100 0RF fluticasone propionate [Flonase Allergy Relief] 50 mcg/actuation spray,suspension 1 spray intranasal DAILY PRN (Reason: Allergic Symptoms) Rx Instructions: administer into each nostril chlordiazepoxide HCl 25 mg Capsule 25 mg PO DIRECTED Qty: 5 0RF Rx Instructions: 25mg every 12 hour through June 03 then decrease to 25mg at bedtime for 2 days through June 05 then stop amoxicillin-pot clavulanate 875-125 mg tablet 1 tablet PO Q12H Qty: 11 0RF Follow-up/Referrals: PHYSICIAN,BROOM WORKER [Primary Care Provider] -
[2025-05-19 11:19] LABS: Cannabinoid Screen Urine Positive (Negative)
[2025-05-19 11:46] VITALS: PULSE 69; RESP 22; O2SAT 97
[2025-05-19 11:51] LABS: Anion Gap 12 mmol/L (4-12); Chloride 103 mmol/L (98-107); Potassium 3.7 mmol/L (3.4-5.0); Sodium 138 mmol/L (137-145)
[2025-05-19 12:45] LABS: NT Pro B Type Natriuretic Pept 45 pg/mL (19.9-100); Troponin I < 0.012 ng/mL (0.000-0.034)
[2025-05-19 14:46] VITALS: BP 118/80; PULSE 45; RESP 19; O2SAT 99
[2025-05-19 16:04] LABS: Creatine Kinase 107 U/L (55-170)
== END 2025-05-19 16:32 | disposition home or self-care (01) ==
PROVIDERS: Emergency Provider Emergency Medicine
DX: F19.10 Other psychoactive substance abuse, uncomplicated (principal); F10.10 Alcohol abuse, uncomplicated; Y90.0 Blood alcohol level of less than 20 mg/100 ml; R53.1 Weakness; F84.5 Asperger's syndrome; H59.092 Other disorders of the left eye following cataract surgery; H54.62 Unqualified visual loss, left eye, normal vision right eye; Z87.891 Personal history of nicotine dependence; R00.1 Bradycardia, unspecified
CPT/HCPCS: 36415; 70450; 71045; 71275; 80053; 80307; 81003; 82077; 82550; 82803; 82948; 83735; 83880; 84100; 84484; 85025; 85380; 93005; 96360; 99284; J7030; Q9967